=== PATIENT | male | born 1970 ===

== ENCOUNTER 2017-08-24 17:08 | Inpatient (IN) | payer BC ==
[~2017-08-24] VITALS: Ht 172.7 cm; Wt 92.6 kg
[2017-08-25] MEDS ORDERED: MAGNESIUM HYDROXIDE SUSP 30 ML CUP PO PRN (19:30)
[2017-08-25] MEDS ORDERED: CHLORHEXIDINE GLUCONATE 2 % 1 PACK (2 CLOTHS) TOP PRN (19:30)
[2017-08-25] MEDS ORDERED: ONDANSETRON HCL 4 MG/2 ML VIAL IV PUSH PRN (19:30)
[2017-08-25] MEDS ORDERED: BISACODYL 10 MG SUPP RECTAL PRN (19:30)
[2017-08-25] MEDS ORDERED: MISCELLANEOUS NURSING INFORMATION XX SCH (19:30)
[2017-08-25] MEDS ORDERED: SENNOSIDES 8.6 MG TAB PO PRN (19:30)
[2017-08-25] MEDS ORDERED: RESP: ALBUTEROL 2.5 MG/3 ML NEB (PRN) INH (19:30)
--- NOTE | 2017-08-25 19:38 | HHI.HP ---
[facility] Service Critical Care Medicine Primary Care Physician Unknown Admission Diagnosis Diagnosis: (1) COPD (chronic obstructive pulmonary disease) Diagnosis: Secondary (2) TBI (traumatic brain injury) Diagnosis: Principal (3) Alcohol withdrawal delirium Diagnosis: Secondary (4) HTN (hypertension) Diagnosis: Secondary (5) Hepatic steatosis Diagnosis: Secondary (6) Obesity (BMI 30-39.9) Diagnosis: Secondary Travel History International Travel<30 Days: No Contact w/Intl Traveler <30 Da: No Traveled to Known Affected Are: No History of Present Illness Patient was not able to provide history. History was obtained from patient's brother and from review of medical records from outside hospital 46 year-old male with past medical history of alcohol dependence, hypertension, COPD, tobacco abuse, sleep apnea not on home C Pap, prior history of crystal meth abuse who is transferred from [facility] in [facility]. His brother states that on 08/14/17 he began coughing vigorously while intoxicated and friend witnessed him falling forward striking his head. (However OSH records indicate he was found down in the yard by his ex ). There was no reported seizure activity. GCS was reportedly 12 on arrival. He sustained a nondisplaced frontal bone fracture, bilateral frontal hemorrhagic contusions, left frontal subdural hematoma (124 mm). He was admitted to the trauma surgery service at the outside hospital with neurosurgical consultation. He had subsequent follow-up CT scans 08/15 and which were stable with the 3rd scan (08/16) showing resolution of SDH. He was treated for delirium tremens with Librium, thiamine, folic acid. He has been on Seroquel 50 mg by mouth twice a day and precedex drip for impulsivity. He was on Keppra for seizure prophylaxis. Repeat CT brain 08/24 showed reduction of frontal hemorrhages with increase in edema, particularly in left frontal lobe. Bilateral subdural hygromas present (5 mm on right and 4 mm on the left) [place] [facility] [place], as well as because there are family members who are local here who can provide support to him through his recovery and rehabilitation efforts. Brother is at bedside requesting repeat imaging. Review of Systems ROS Limitations: Clinical Condition Past Family Social History Allergies: Coded Allergies: No Known Allergies (Unverified , 08/25/17) Past Medical History Hypertension COPD Alcohol dependence Tobacco abuse Hepatic steatosis Prior history of crystal meth abuse Past Surgical History Brother reports no known past surgical history Reported Medications Prior home medications from outside hospital indicated: Norvasc 10 mg by mouth daily Lisinopril 20 mg by mouth daily ?Erythromycin ophthalmic 3 times a day, ?acetaminophen/codeine, pseudoephedrine/dextromethorphan cough suppressant ?Azithromycin 250 daily Active Ordered Medications Medications he was on at outside hospital included: Nicotine patch Colace 100 mg by mouth twice a day Protonix 40 g IV daily DuoNeb every 6 hours Ativan to mill grams IV every 2 hours as needed Insulin sliding scale Ativan 1 mg by mouth twice a day Haldol 5 mill grams IV every 4 hours as needed Precedex drip Seroquel 50 mg by mouth twice a day TPN with lipids Family History His mother drinks alcohol Heavily. She has COPD and is 72 years old. Father is 84 and reportedly in good health. He reportedly was diagnosed with bladder cancer 12 years ago but reportedly is "cancer free" after alternative therapy Social History He has smoked since he was about 14 years old and was currently smoking 3 packs per day Prior history of crystal meth abuse but reportedly has been clean for that for 2 years Drinks beer and liquor on a daily basis. Brother estimates 8-15 alcoholic beverages per day Lives in [place] Is a salesman for [email or web address] He has been twice He has 2 adult daughters. One is name Ernie and lives in [place]. Another daughter is Lanette and she is in college in [place]. He has a 11-year-old son from his second marriage. His mother lives in [facility] Physical Exam Physical Exam GENERAL: Well-nourished, well-developed patient who is sitting up in ISC bed, restless. SKIN: Warm and dry, well perfused. There is erythema at right antecubital fossa , appears to be prior PIV site. No fluctuance or palpable cord. HEAD: Atraumatic. Normocephalic. EYES: Pupils equal and round, reactive. No scleral icterus. No injection or drainage. ENT: No nasal bleeding or discharge. Mucous membranes pink and moist. NECK: Trachea midline. No JVD. CARDIOVASCULAR: Regular rate and rhythm. No murmurs rubs or gallops. RESPIRATORY: No accessory muscle use. Clear to auscultation. Breath sounds equal bilaterally. GASTROINTESTINAL: Abdomen soft, non-tender, nondistended. Bowel sounds present. Hepatic and splenic margins not palpable. MUSCULOSKELETAL: Extremities without clubbing, cyanosis, or edema. NEUROLOGICAL: Awake and alert. Oriented to self but not to year/place/ president. No obvious cranial nerve deficits. EOM full without nystagmus. Strength 5/5 throughout. Caprini VTE Risk Assessment Caprini VTE Risk Assessment: Mod/High Risk (score >= 2) VTE Pharm Contraindication: Documented Caprini Risk Assessment Model Point Value = 1 Point Value = 2 Point Value = 3 Point Value = 5 Age 41-60 Minor surgery BMI > 25 kg/m2 Swollen legs Varicose veins or History of unexplained or recurrent spontaneous Oral contraceptives or hormone replacement Sepsis (< 1 month) Serious lung disease, including pneumonia (< 1 month) Abnormal pulmonary function Acute myocardial infarction Congestive heart failure (< 1 month) History of inflammatory bowel disease Medical patient at bed rest Age 61-74 Arthroscopic surgery Major open surgery (> 45 min) Laparoscopic surgery (> 45 min) Malignancy Confined to bed (> 72 hours) Immobilizing plaster cast Central venous access Age >= 75 History of VTE Family history of VTE Factor V Leiden Prothrombin [id number] Lupus anticoagulant Anticardiolipin antibodies Elevated serum homocysteine Heparin-induced thrombocytopenia Other congenital or acquired thrombophilia Stroke (< 1 month) Elective arthroplasty Hip, pelvis, or leg fracture Acute spinal cord injury (< 1 month) Prophylaxis Regimen Total Risk Factor Score Risk Level Prophylaxis Regimen 0-1 Low Early ambulation 2 Moderate Order ONE of the following: *Sequential Compression Device (SCD) *Heparin 5000 units SQ BID 3-4 Higher Order ONE of the following medications: *Heparin 5000 units SQ TID *Enoxaparin/Lovenox 40 mg SQ daily (WT < 150 kg, CrCl > 30 mL/min) *Enoxaparin/Lovenox 30 mg SQ daily (WT < 150 kg, CrCl > 10-29 mL/min) *Enoxaparin/Lovenox 30 mg SQ BID (WT < 150 kg, CrCl > 30 mL/min) AND/OR *Sequential Compression Device (SCD) 5 or more Highest Order ONE of the following medications: *Heparin 5000 units SQ TID (Preferred with Epidurals) *Enoxaparin/Lovenox 40 mg SQ daily (WT < 150 kg, CrCl > 30 mL/min) *Enoxaparin/Lovenox 30 mg SQ daily (WT < 150 kg, CrCl > 10-29 mL/min) *Enoxaparin/Lovenox 30 mg SQ BID (WT < 150 kg, CrCl > 30 mL/min) AND *Sequential Compression Device (SCD) Assessment and Plan Problem List: (1) COPD (chronic obstructive pulmonary disease) ICD Code: J44.9 - Chronic obstructive pulmonary disease, unspecified Status: Chronic (2) TBI (traumatic brain injury) ICD Code: S06.9X9A - Unspecified intracranial injury with loss of consciousness of unspecified duration, initial encounter Status: Acute (3) Alcohol withdrawal delirium ICD Code: F10.231 - Alcohol dependence with withdrawal delirium Status: Acute (4) HTN (hypertension) ICD Code: I10 - Essential (primary) hypertension Status: Chronic (5) Obesity (BMI 30-39.9) ICD Code: E66.9 - Obesity, unspecified Status: Chronic (6) Hepatic steatosis ICD Code: K76.0 - Fatty (change of) liver, not elsewhere classified Status: Chronic (7) Thrombocytosis ICD Code: D47.3 - Essential (hemorrhagic) thrombocythemia Status: Acute Assessment and Plan NEURO: TBI Nondisplaced frontal bone fracture Left frontal subdural hematoma Left frontal subarachnoid hemorrhage Punctate frontal lobe hemorrhagic contusions Alcohol dependence Agitated delirium CT Scans were performed at outside hospital 08/14, 08/15, 08/16. CT brain 08/14 - linear nondisplaced frontal bone fracture. Punctate hemorrhagic contusions Inferior frontal lobes. Subdural blood along tentorium and small left frontal subdural hematoma 12 x 4 mm. Bilateral frontal subarachnoid hemorrhage Follow-up CT 08/15 was stable. Follow-up CT 08/16 Stable hemorrhagic contusions and subarachnoid hemorrhage. Subdural blood along the left frontal lobe was no longer apparent. Suspect ongoing impulsivity largely related to frontal lobe involvement, though prior hospital course has been complicated by DTs. Continue Seroquel 50 mg twice a day. Continue Precedex, weaning off as tolerated. Check baseline LFTs, ammonia level. Consider depakote for agitation to facilitate precedex weaning. Will d/c Keppra as he is beyond 7 days. F/u EEG. Thiamine/folic acid/MVI daily. PT/OT/speech therapy for cognitive evaluation RESP: COPD Suspected obstructive sleep apnea Tobacco abuse Was on Bipap at OSH for suspected sleep apnea, will continue Continue nicotine patch IS every hour DuoNeb every 6 hours Albuterol every 2 hours as needed CV: Hypertension Monitor hemodynamics GI: Obesity Hepatic steatosis Gayla RN performed bedside swallowing evaluation and patient swallowed liquids without reported difficulty. He was on pured diet at outside hospital with supplemental nutrition via TPN. I will not continue TPN at this time. Will assess his intake tomorrow. If need be, enteral feeds via dobhoff could be considered. Pureed regular diet. Speech therapy to reevaluate swallow. FEN/RENAL: Check CMP. Traumatic izaguirre dislodgement at outside hospital. Voiding. ID: Monitor for signs and symptoms of infection. HEME: Thrombocytosis, reactive Monitor CBC ENDO: Euglycemic PROPH: SCDs for DVT prophylaxis. Neurosurgeon at outside hospital had recommended against pharmacologic DVT prophylaxis. Will defer to neurosurgery design studio consultant. Famotidine for stress ulcer prophylaxis ACCESS: Peripheral IV Patient's brother updated at bedside and multiple questions answered. Patient is full code Level 3 H and P Felisa Blackmon MD Aug 25, 2017 19:38
[2017-08-25 20:00] VITALS: BP 100/65; PULSE 113; PULSE 128; RESP 20; TEMP 98.3; O2SAT 92
[2017-08-25] MEDS: FAMOTIDINE 20 MG/2 ML VIAL IV PUSH SCH (20:09)
[2017-08-25] MEDS: DEXMEDETOMIDINE INJ 200 MCG in SODIUM CHLORIDE 0.9% INJ 50 ML IV PRN ×2 (20:09→21:52)
[2017-08-25] MEDS: SODIUM CHLORIDE 0.9% FLUSH 10 ML FLUSH IV FLUSH SCH (20:10)
[2017-08-25 20:13] VITALS: PULSE 128
[2017-08-25] MEDS: FAMOTIDINE 20 MG TAB PO SCH (20:14)
[2017-08-25] MEDS: DOCUSATE SODIUM 50 MG/SENNA 8.6 MG TAB PO SCH (20:15)
--- NOTE | 2017-08-25 20:23 | RADRPT ---
EXAM DATE/TIME: 08/25/2017 19:34 [facility] COMPARISON: No previous studies available for comparison. INDICATIONS : Short of breath MEDICAL HISTORY : Non-responsive SURGICAL HISTORY : Non-responsive ENCOUNTER: Initial ACUITY: 1 day PAIN SCORE: Non-responsive. LOCATION: chest FINDINGS: A single view of the chest demonstrates basilar airspace disease, right greater the left. No effusion . No pneumothorax. CONCLUSION: 1. Basilar airspace disease, right greater the left. Differential diagnosis includes pneumonia and at electasis/aspiration. Virgilio Wilhelm MD on August 25, 2017 at 20:06 Board Certified Radiologist. This report was verified electronically.
[2017-08-25] MEDS: QUEtiapine FUMARATE 25 MG TAB PO SCH (21:00)
[2017-08-25] MEDS: RESP: ALBUTEROL 2.5 MG/IPRATROPIUM 0.5 MG NEB (SCH) INH (21:39)
[2017-08-25 21:41] VITALS: O2SAT 94
[2017-08-25 21:47] LABS: AUTOMATED NEUTROPHIL # 10.1 TH/MM3 (1.8-7.7); BASOPHIL # 0.1 TH/MM3 (0-0.2); BASOPHIL % 0.4 % (0.0-2.0); EOSINOPHIL # 0.2 TH/MM3 (0-0.4); EOSINOPHIL % 1.3 % (0.0-4.0); HEMATOCRIT 42.7 % (39.0-51.0); HEMOGLOBIN 14.7 GM/DL (13.0-17.0); LYMPH % 18.2 % (9.0-44.0); LYMPHOCYTE # 2.6 TH/MM3 (1.0-4.8); MEAN CORPUSCULAR HEMOGLOBIN 31.1 PG (27.0-34.0); MEAN CORPUSCULAR HGB CONC 34.6 % (32.0-36.0); MEAN PLATELET VOLUME 8.4 FL (7.0-11.0); MONO % 9.1 % (0.0-8.0); MONOCYTE # 1.3 TH/MM3 (0-0.9); PLATELET COUNT 481 TH/MM3 (150-450); RED BLOOD COUNT 4.74 MIL/MM3 (4.50-5.90); RED CELL DISTRIBUTION WIDTH 14.2 % (11.6-17.2); WHITE BLOOD COUNT 14.3 TH/MM3 (4.0-11.0)
[2017-08-25 22:00] VITALS: PULSE 101
[2017-08-25 22:26] LABS: ALBUMIN 3.5 GM/DL (3.4-5.0); AST (GOT) 25 U/L (15-37); BICARBONATE 24.2 MEQ/L (21.0-32.0); BLOOD UREA NITROGEN 13 MG/DL (7-18); CALCIUM 9.1 MG/DL (8.5-10.1); CHLORIDE 101 MEQ/L (98-107); CREATININE 1.01 MG/DL (0.60-1.30); GLOMERULAR FILTRATION RATE 79 ML/MIN (>89); GLUCOSE,RANDOM 80 MG/DL (74-106); SODIUM (NA) 136 MEQ/L (136-145)
[2017-08-25 22:27] LABS: ALT (GPT) 46 U/L (12-78); PHOSPHORUS 3.8 MG/DL (2.5-4.9)
[2017-08-25 22:29] LABS: ALKALINE PHOSPHATASE 83 U/L (45-117); TOTAL BILIRUBIN ADULT 0.5 MG/DL (0.2-1.0); TOTAL PROTEIN 7.4 GM/DL (6.4-8.2)
[2017-08-25] MEDS ORDERED: DEXMEDETOMIDINE INJ 1,000 MCG in SODIUM CHLOR 0.9% 250 ML INJ 240 ML IV PRN (23:59)
[2017-08-26] VITALS (15 sets, daily range): BP systolic 95–167; BP diastolic 55–107; PULSE 62–128; RESP 13–24; TEMP 97.9–98.7; O2SAT 95–100
[2017-08-26] MEDS: RESP: ALBUTEROL 2.5 MG/IPRATROPIUM 0.5 MG NEB (SCH) INH ×2 (03:06→08:20)
[2017-08-26] MEDS: CHLORHEXIDINE GLUCONATE 2 % 1 PACK (2 CLOTHS) TOP SCH (04:00)
[2017-08-26 06:22] LABS: AUTOMATED NEUTROPHIL # 5.9 TH/MM3 (1.8-7.7); BASOPHIL % 0.4 % (0.0-2.0); EOSINOPHIL # 0.3 TH/MM3 (0-0.4); EOSINOPHIL % 2.5 % (0.0-4.0); HEMATOCRIT 44.4 % (39.0-51.0); HEMOGLOBIN 15.3 GM/DL (13.0-17.0); LYMPH % 27.4 % (9.0-44.0); LYMPHOCYTE # 2.8 TH/MM3 (1.0-4.8); MEAN CELL VOLUME 90.9 FL (80.0-100.0); MEAN CORPUSCULAR HEMOGLOBIN 31.3 PG (27.0-34.0); MEAN CORPUSCULAR HGB CONC 34.4 % (32.0-36.0); MEAN PLATELET VOLUME 8.2 FL (7.0-11.0); MONO % 10.9 % (0.0-8.0); MONOCYTE # 1.1 TH/MM3 (0-0.9); NEUT % 58.8 % (16.0-70.0); PLATELET COUNT 460 TH/MM3 (150-450); RED BLOOD COUNT 4.88 MIL/MM3 (4.50-5.90); RED CELL DISTRIBUTION WIDTH 14.1 % (11.6-17.2); WHITE BLOOD COUNT 10.1 TH/MM3 (4.0-11.0)
[2017-08-26 06:53] LABS: BICARBONATE 27.3 MEQ/L (21.0-32.0); CALCIUM 9.6 MG/DL (8.5-10.1); CREATININE 0.99 MG/DL (0.60-1.30)
[2017-08-26] MEDS: RESP: ALBUTEROL 2.5 MG/IPRATROPIUM 0.5 MG NEB (SCH) NEB ×3 (08:21→21:39)
[2017-08-26] MEDS ORDERED: RESP: ALBUTEROL 2.5 MG/3 ML NEB (PRN) NEB (08:45)
[2017-08-26] MEDS: FAMOTIDINE 20 MG/2 ML VIAL IV PUSH SCH (09:00)
[2017-08-26] MEDS: FAMOTIDINE 20 MG TAB PO SCH ×2 (09:10→20:27)
[2017-08-26] MEDS: SODIUM CHLORIDE 0.9% FLUSH 10 ML FLUSH IV FLUSH SCH ×2 (09:11→19:46)
[2017-08-26] MEDS: QUEtiapine FUMARATE 25 MG TAB PO SCH ×2 (09:11→17:24)
[2017-08-26] MEDS: DOCUSATE SODIUM 50 MG/SENNA 8.6 MG TAB PO SCH ×2 (09:11→20:27)
--- NOTE | 2017-08-26 09:17 | RADRPT ---
EXAM DATE/TIME: 08/26/2017 08:05 [facility] COMPARISON: No previous studies available for comparison. INDICATIONS : Altered mental status RADIATION DOSE: 66.34 CTDIvol (mGy) MEDICAL HISTORY : Hypertension. Chronic obstructive pulmonary disease. SURGICAL HISTORY : Non-responsive. ENCOUNTER: Initial ACUITY: 1 day PAIN SCALE: Non-responsive LOCATION: Bilateral cranial TECHNIQUE: Multiple contiguous axial images were obtained of the head. Using automated exposure control and adjustment of the mA and/or kV according to patient size, radiation dose was kept as low as reasonably achievable to obtain optimal diagnostic quality images. DICOM format image data is av ailable electronically for review and comparison. FINDINGS: CEREBRUM: There is bifrontal encephalomalacia changes. Ventricular size is appropriate Patient has skull fract ure extending across the right calvarium. There is no parenchymal hemorrhage. Small amount of subdural blood is seen on the left measuring 9 mm, moving from subacute to hygromas s tage. Posterior fossa is unremarkable Measures sinuses are clear. CONCLUSION: Skull fracture on the right focal bone within the encephalomalacic changes both orbitofrontal regions . Small 9 mm right subdural hygroma I have no prior studies for comparison. Due to the exists? Flaco Razo MD FACR on August 26, 2017 at 9:12 Board Certified Radiologist. This report was verified electronically.
[2017-08-26] MEDS: DIVALPROEX DR 500 MG TABEC PO SCH ×2 (09:52→20:28)
[2017-08-26] MEDS ORDERED: LORazepam 2 MG/ML VIAL IV PUSH PRN (11:30)
--- NOTE | 2017-08-26 11:41 | HHI.CCPN ---
Subjective Remarks/Hospital Course Patient was not able to provide history. History was obtained from patient's brother and from review of medical records from outside hospital. 46 year-old male with past medical history of alcohol dependence, hypertension, COPD, tobacco abuse, sleep apnea not on home C Pap, prior history of crystal meth abuse who is transferred from [facility] in [facility]. His brother states that on 08/14/17 he began coughing vigorously while intoxicated and friend witnessed him falling forward striking his head. (However OSH records indicate he was found down in the yard by his ex ). There was no reported seizure activity. GCS was reportedly 12 on arrival. He sustained a nondisplaced frontal bone fracture, bilateral frontal hemorrhagic contusions, left frontal subdural hematoma (124 mm). He was admitted to the trauma surgery service at the outside hospital with neurosurgical consultation. He had subsequent follow-up CT scans 08/15 and which were stable with the 3rd scan (08/16) showing resolution of SDH. He was treated for delirium tremens with Librium, thiamine, folic acid. He has been on Seroquel 50 mg by mouth twice a day and Precedex drip for impulsivity. He was on Keppra for seizure prophylaxis. Repeat CT brain 08/24 showed reduction of frontal hemorrhages with increase in edema, particularly in left frontal lobe. Bilateral subdural hygromas present (5 mm on right and 4 mm on the left) Family has requested transfer to [facility] [place] for second opinion, as well as because there are family members who are local here who can provide support to him through his recovery and rehabilitation efforts. Brother is at bedside requesting repeat imaging. SUBJ 08/26: Currently on Precedex. Patient is able to follow commands but speech is not clear. Intermittently agitated requiring Precedex and restraints. Will wean Precedex. Increase Seroquel to 50 mg every 8 hours, use as needed Haldol and Ativan. Start Clonidine 0.1 gm q8. Depakote started by Dr. Blackmon Objective Vital Signs Date Time Temp Pulse Resp B/P (MAP) Pulse Ox O2 Delivery O2 Flow Rate FiO2 08/26/17 08:21 96 Nasal Cannula 2.00 08/26/17 06:00 62 08/26/17 04:00 98.4 14 111/70 (84) 08/25/17 21:41 21 Intake and Output 08/26/17 08/26/17 08/26/17 07:59 15:59 23:59 Intake Total 347 ml 132 ml Balance 347 ml 132 ml Result Diagram: 08/26/17 0544 08/26/17 0544 Other Results Laboratory Tests Test 08/25/17 20:45 Blood Gas Puncture Site RT RADIAL Blood Gas Patient Temperature 98.6 Blood Gas HCO3 25 mmol/L (22-26) Blood Gas Base Excess 1.5 mmol/L (-2-2) Blood Gas Oxygen Saturation 90 % (90-100) Arterial Blood pH 7.47 (7.380-7.420) Arterial Blood Partial Pressure CO2 35 mmHg (38-42) Arterial Blood Partial Pressure O2 63 mmHg (61-120) Arterial Blood Oxygen Content 18.9 Vol % (12.0-20.0) Arterial Blood Carboxyhemoglobin 1.1 % (0-4) Arterial Blood Methemoglobin 0.9 % (0-2) Blood Gas Hemoglobin 14.9 G/DL (12.0-16.0) Oxygen Delivery Device ROOM AIR Blood Gas Inspired Oxygen 21 % Objective Remarks GENERAL: Well-nourished, well-developed patient who is lying in ISC bed, restless. SKIN: Warm and dry, well perfused. There is erythema at right antecubital fossa , appears to be prior PIV site. No fluctuance or palpable cord. HEAD: Atraumatic. Normocephalic. EYES: Pupils equal and round, reactive. No scleral icterus. No injection or drainage. ENT: No nasal bleeding or discharge. Mucous membranes pink and moist. NECK: Trachea midline. No JVD. CARDIOVASCULAR: Regular rate and rhythm. No murmurs rubs or gallops. RESPIRATORY: No accessory muscle use. Clear to auscultation. Breath sounds equal bilaterally. GASTROINTESTINAL: Abdomen soft, non-tender, nondistended. Bowel sounds present. Hepatic and splenic margins not palpable. MUSCULOSKELETAL: Extremities without clubbing, cyanosis, or edema. NEUROLOGICAL: Awake and alert. Oriented to self. No obvious cranial nerve deficits. EOM full. Strength 5/5 . A/P Assessment and Plan NEURO: TBI Nondisplaced frontal bone fracture Left frontal subdural hematoma Left frontal subarachnoid hemorrhage Punctate frontal lobe hemorrhagic contusions Agitated delirium Alcohol dependence CT 08/26 Skull fracture on the right, encephalomalacia both orbitofrontal regions. Small 9 mm right subdural hygroma. Dr. Lobo consulted CT Scans were performed at outside hospital 08/14, 08/15, 08/16. CT brain 08/14 - linear nondisplaced frontal bone fracture. Punctate hemorrhagic contusions Inferior frontal lobes. Subdural blood along tentorium and small left frontal subdural hematoma 12 x 4 mm. Bilateral frontal subarachnoid hemorrhage Follow-up CT 08/15 was stable. Follow-up CT 08/16 Stable hemorrhagic contusions and subarachnoid hemorrhage. Subdural blood along the left frontal lobe was no longer apparent. Suspect ongoing impulsivity largely related to frontal lobe involvement, though prior hospital course has been complicated by DTs. Continue Seroquel 50 mg twice a day, increase to every 8 hours. Continue Precedex, weaning off. Start clonidine 0.1 mg every 8 hours. Use Ativan as needed. Continue Depakote Thiamine/folic acid/MVI daily. PT/OT/speech therapy for cognitive, swallow evaluation RESP: COPD Suspected obstructive sleep apnea Tobacco abuse Was on BiPAP at OSH for suspected sleep apnea, will continue Continue nicotine patch IS every hour DuoNeb every 6 hours Albuterol every 2 hours as needed CV: Hypertension Monitor hemodynamics GI: Obesity Hepatic steatosis Gayla RN performed bedside swallowing evaluation and patient swallowed liquids without reported difficulty. He was on pured diet at outside hospital with supplemental nutrition via TPN. No need to continue TPN at this time. Cleared by speech, start regular diet FEN/RENAL: Voiding. Check CMP. ID: Monitor for signs and symptoms of infection. HEME: Thrombocytosis, reactive Monitor CBC ENDO: Euglycemic PROPH: SCDs for DVT prophylaxis. Neurosurgeon at outside hospital had recommended against pharmacologic DVT prophylaxis. Will defer to neurosurgery showroom sales consultant. Famotidine for stress ulcer prophylaxis PT OOB. Will start Lovenox if cleared by Dr. Lobo ACCESS: Peripheral IV Patient's brother updated at bedside and multiple questions answered. Patient is full code Level 3 Consult [facility] to assume care in am Adeline Wadsworth MD Aug 26, 2017 11:41
[2017-08-26] MEDS: HALOPERIDOL LACTATE 5 MG/ML AMP IV PRN ×2 (12:00→19:46)
--- NOTE | 2017-08-26 13:21 | PD.CONS ---
(Dell Lobo MD) HPI Consult Requested By Primary Care Physician Unknown (Dell Lobo MD) Service Neurosurgery Consult Requested By Critical Care History of Present Illness Mr. Flores is a 46 year old male who presents as a transfer from [place], [place]. Patient cannot provide history this history obtained from patient's medical record. On 08/14/17 he had a witnessed fall while intoxicated, forward striking his head. There was no reported seizure activity. He sustained a nondisplaced frontal bone fracture, bilateral frontal hemorrhagic contusions, left frontal subdural hematoma (124 mm). He was admitted to the trauma surgery service at the outside hospital with Neurosurgical evaluation and was managed nonoperatively. He had underwent subsequent follow-up CT scans 08/15 and 08/16 which were stable and showing resolution of subdural hematoma. He was also being treated for delirium tremens with Librium, thiamine, folic acid. He has been on Seroquel 50 mg by mouth twice a day and Precedex drip for impulsivity. He was on Keppra for seizure prophylaxis. Another repeat CT brain 08/24 showed reduction of frontal hemorrhages with increase in edema, particularly in left frontal lobe. Bilateral subdural hygromas present and family has requested transfer for second opinion, as well as family members being local here in [facility]. A CT Brain has been completed here at [place]. He is currently undergoing EEG study. (Patito Benavides) Review of Systems ROS Limitations: Clinical Condition (Patito Benavides) Past Family Social History Allergies: Coded Allergies: No Known Allergies (Unverified , 08/25/17) Past Medical History Per EMR: Hypertension COPD Etoh dependence Hepatic steatosis History of crystal meth abuse Past Surgical History Per EMR no known past surgical history Reported Medications Per EMR Norvasc 10 mg by mouth daily Lisinopril 20 mg by mouth daily ?Erythromycin ophthalmic 3 times a day, ?acetaminophen/codeine, pseudoephedrine/dextromethorphan cough suppressant ?Azithromycin 250 daily Active Ordered Medications Medications he was on at outside hospital included: Nicotine patch Colace 100 mg by mouth twice a day Protonix 40 g IV daily DuoNeb every 6 hours Ativan to mill grams IV every 2 hours as needed Insulin sliding scale Ativan 1 mg by mouth twice a day Haldol 5 mill grams IV every 4 hours as needed Precedex drip Seroquel 50 mg by mouth twice a day TPN with lipids Active Ordered Medications Current Medications Medications (Trade) Dose Ordered Sig/Alfa Route PRN Reason Start Time Stop Time Status Last Admin Dose Admin Sodium Chloride (NS Flush) 2 ml UNSCH PRN IV FLUSH FLUSH AFTER USING IV ACCESS 08/25/17 19:30 Sodium Chloride (NS Flush) 2 ml BID IV FLUSH 08/25/17 21:00 08/26/17 09:11 Acetaminophen (Tylenol) 650 mg Q6H PRN PO PAIN 1-3 OR FEVER >101 08/25/17 19:30 Famotidine (Pepcid) 20 mg Q12HR PO 08/25/17 21:00 08/26/17 09:10 Ondansetron HCl (Zofran Inj) 4 mg Q6H PRN IV PUSH NAUSEA OR VOMITING 08/25/17 19:30 Miscellaneous Information 1 Q361D XX 08/25/17 19:30 08/25/17 19:30 Chlorhexidine Gluconate (Chlorhexidine 2% Cloth) 3 pack Taper DAILY@04 TOP 08/26/17 04:00 08/22/18 03:59 08/26/17 04:00 Chlorhexidine Gluconate (Chlorhexidine 2% Cloth) 3 pack UNSCH PRN TOP HYGIENIC CARE 08/25/17 19:30 Senna/Docusate Sodium (Elena-Colace) 1 tab BID PO 08/25/17 21:00 08/26/17 09:11 Magnesium Hydroxide (Milk Of Magnesia Liq) 30 ml Q12H PRN PO Mild constipation 08/25/17 19:30 Sennosides (Senokot) 17.2 mg Q12H PRN PO Moderate constipation 08/25/17 19:30 Bisacodyl (Dulcolax Supp) 10 mg DAILY PRN RECTAL SEVERE CONSITIPATION 08/25/17 19:30 Lactulose (Lactulose Liq) 30 ml DAILY PRN PO SEVERE CONSITIPATION 08/25/17 19:30 Divalproex Sodium (Depakote Dr) 500 mg BID PO 08/26/17 09:00 08/26/17 09:52 Albuterol/ Ipratropium (Duoneb Neb) 1 ampule Q6HR NEB NEB 08/26/17 10:00 Albuterol Sulfate (Albuterol Neb) 2.5 mg Q2HR NEB PRN NEB WHEEZING 08/26/17 08:45 Quetiapine Fumarate (SEROquel) 50 mg Q8H PO 08/26/17 17:00 Haloperidol Lactate (Haldol Inj) 4 mg Q4H PRN IV agitation 08/26/17 11:30 08/26/17 12:00 Lorazepam (Ativan Inj) 1 mg Q4H PRN IV PUSH agitation 08/26/17 11:30 Clonidine (Catapres) 0.1 mg Q8HR PO 08/26/17 14:00 Enoxaparin Sodium (Lovenox Inj) 40 mg Q24H SQ 08/26/17 12:00 Family History Mother etoh abuse, COPD Father: bladder cancer Social History senior care tobacco use since 14 y/o 3 ppd Etoh abuse: drinks beer and liquor daily Prior illicit drug use - crystal meth (Patito Benavides) Physical Exam Vital Signs Vital Signs Date Time Temp Pulse Resp B/P (MAP) Pulse Ox O2 Delivery O2 Flow Rate FiO2 08/26/17 10:00 69 08/26/17 08:21 96 Nasal Cannula 2.00 08/26/17 08:00 97.9 66 14 121/77 (92) 100 08/26/17 08:00 66 08/26/17 07:00 100 Nasal Cannula 2.00 08/26/17 06:00 62 08/26/17 05:13 100 Nasal Cannula 1.50 08/26/17 04:00 98.4 69 14 111/70 (84) 100 08/26/17 04:00 69 08/26/17 02:00 76 08/26/17 00:00 98.7 92 20 95/55 (68) 97 08/26/17 00:00 92 08/25/17 22:00 101 08/25/17 22:00 97 Nasal Cannula 08/25/17 21:41 94 21 08/25/17 20:13 128 08/25/17 20:00 98.3 113 20 100/65 (77) 92 08/25/17 20:00 96 Room Air 08/25/17 20:00 128 Physical Exam Mr Flores is confortablke, opens eyes to voice. he is alert, confused, oriented to self. Cranial nerve examination demonstrates the pupils to be equal, round, and reactive to light. Extra-ocular movements are intact with normal convergence. Facial motor function appears normal and symmetrical. Face sensation, hearing, visual mcknight, and olfaction can not be assessed properly due to the patients condition. The patient has an intact corneal reflex and a gag reflex. Sternocleidomastoid and trapezius have normal and symmetrical strength. Other cranial nerves are intact. Neck is soft and supple. Cervical spine has a normal range of motion of the cervical spine without pain. There is no tenderness to palpation to the spinous processes or paraspinal muscles. Muscle testing reveals normal bulk and tone overall without rigidity, spasticity , fasciculations, or atrophy. Muscle strength is 5/5 in all muscle groups of both upper and lower extremities. Deep tendon reflexes are 1+ and symmetrical in the biceps, triceps, and brachioradialis, bilaterally, in the upper extremities. In the lower extremities , the patellar and Achilles are 1+, bilaterally. There is a bilateral plantar flexion response. Hoffmanns sign is negative. There is no clonus or other abnormal reflexes noted. Cerebellar examination is limited due to the patient condition, but no obvious deficits are noted. Laboratory Laboratory Tests Test 08/25/17 20:00 08/25/17 20:45 08/25/17 21:05 08/26/17 05:44 Nasal Screen MRSA (PCR) MRSA NOT DETECTED Blood Gas Puncture Site RT RADIAL Blood Gas Patient Temperature 98.6 Blood Gas HCO3 25 Blood Gas Base Excess 1.5 Blood Gas Oxygen Saturation 90 Arterial Blood pH 7.47 Arterial Blood Partial Pressure CO2 35 Arterial Blood Partial Pressure O2 63 Arterial Blood Oxygen Content 18.9 Arterial Blood Carboxyhemoglobin 1.1 Arterial Blood Methemoglobin 0.9 Blood Gas Hemoglobin 14.9 Oxygen Delivery Device ROOM AIR Blood Gas Inspired Oxygen 21 White Blood Count 14.3 10.1 Red Blood Count 4.74 4.88 Hemoglobin 14.7 15.3 Hematocrit 42.7 44.4 Mean Corpuscular Volume 90.0 90.9 Mean Corpuscular Hemoglobin 31.1 31.3 Mean Corpuscular Hemoglobin Concent 34.6 34.4 Red Cell Distribution Width 14.2 14.1 Platelet Count 481 460 Mean Platelet Volume 8.4 8.2 Neutrophils (%) (Auto) 71.0 58.8 Lymphocytes (%) (Auto) 18.2 27.4 Monocytes (%) (Auto) 9.1 10.9 Eosinophils (%) (Auto) 1.3 2.5 Basophils (%) (Auto) 0.4 0.4 Neutrophils # (Auto) 10.1 5.9 Lymphocytes # (Auto) 2.6 2.8 Monocytes # (Auto) 1.3 1.1 Eosinophils # (Auto) 0.2 0.3 Basophils # (Auto) 0.1 0.0 CBC Comment DIFF FINAL DIFF FINAL Differential Comment Blood Urea Nitrogen 13 14 Creatinine 1.01 0.99 Random Glucose 80 94 Total Protein 7.4 Albumin 3.5 Calcium Level 9.1 9.6 Phosphorus Level 3.8 Magnesium Level 2.0 Alkaline Phosphatase 83 Aspartate Amino Transf (AST/SGOT) 25 Alanine Aminotransferase (ALT/SGPT) 46 Total Bilirubin 0.5 Sodium Level 136 135 Potassium Level 3.8 4.0 Chloride Level 101 102 Carbon Dioxide Level 24.2 27.3 Anion Gap 11 6 Estimat Glomerular Filtration Rate 79 81 Ammonia 13 (Dell Lobo MD) Physical Exam (Patito Benavides) Result Diagram: 08/26/17 0544 08/26/17 0544 Imaging Last [address] 08/26/17 0000 Signed Impressions: Service Date/Time: Saturday, August 26, 2017 08:05 - CONCLUSION: Skull fracture on the right focal bone within the encephalomalacic changes both orbitofrontal regions. Small 9 mm right subdural hygroma I have no prior studies for comparison. Due to the exists? Flaco Razo MD FACR Chest X-Ray 08/25/17 0000 Signed Impressions: Service Date/Time: Friday, August 25, 2017 19:34 - CONCLUSION: 1. Basilar airspace disease, right greater the left. Differential diagnosis includes pneumonia and atelectasis/aspiration. Virgilio Wilhelm MD (Dell Lobo MD) Imaging Last Impressions Head CT 08/26/17 0000 Signed Impressions: Service Date/Time: Saturday, August 26, 2017 08:05 - CONCLUSION: Skull fracture on the right focal bone within the encephalomalacic changes both orbitofrontal regions. Small 9 mm right subdural hygroma I have no prior studies for comparison. Due to the exists? Flaco Razo MD FACR Chest X-Ray 08/25/17 0000 Signed Impressions: Service Date/Time: Friday, August 25, 2017 19:34 - CONCLUSION: 1. Basilar airspace disease, right greater the left. Differential diagnosis includes pneumonia and atelectasis/aspiration. Virgilio Wilhelm MD (Patito Benavides) Attending Statement I reviewed his clinical and radiological studies Head CT 08/26/17 0000 Signed Impressions: Service Date/Time: Saturday, August 26, 2017 08:05 - CONCLUSION: Skull fracture on the right focal bone within the encephalomalacic changes both orbitofrontal regions. Small 9 mm right subdural hygroma I have no prior studies for comparison. Due to the exists? Flaco Razo MD FACR Chest X-Ray 08/25/17 0000 Signed Impressions: Service Date/Time: Friday, August 25, 2017 19:34 - CONCLUSION: 1. Basilar airspace disease, right greater the left. Differential diagnosis includes pneumonia and atelectasis/aspiration. Virgilio Wilhelm MD Continue neuro checks in a serial fashion. Continue non surgical management of traumatic head injury An EEG has been ordered Pulmonary. Continue aggressive pulmonary toilette, nasotracheal suction, and breathing treatments with nebulizers. Daily PT and OT Nutrition. Tolerating Oral diet Renal. Continue to monitor closely urine output, BUN and creatinine Endocrine. Continue to Monitor serial Acu checks and SSI as needed in detail ID continue to monitor for signs of infection Continue Protonix for stress ulcer prophylaxis Caprini VTE Risk Assessment Caprini VTE Risk Assessment Caprini Risk Assessment Model Point Value = 1 Point Value = 2 Point Value = 3 Point Value = 5 Age 41-60 Minor surgery BMI > 25 kg/m2 Swollen legs Varicose veins or History of unexplained or recurrent spontaneous Oral contraceptives or hormone replacement Sepsis (< 1 month) Serious lung disease, including pneumonia (< 1 month) Abnormal pulmonary function Acute myocardial infarction Congestive heart failure (< 1 month) History of inflammatory bowel disease Medical patient at bed rest Age 61-74 Arthroscopic surgery Major open surgery (> 45 min) Laparoscopic surgery (> 45 min) Malignancy Confined to bed (> 72 hours) Immobilizing plaster cast Central venous access Age >= 75 History of VTE Family history of VTE Factor V Leiden Prothrombin [id number] Lupus anticoagulant Anticardiolipin antibodies Elevated serum homocysteine Heparin-induced thrombocytopenia Other congenital or acquired thrombophilia Stroke (< 1 month) Elective arthroplasty Hip, pelvis, or leg fracture Acute spinal cord injury (< 1 month) Prophylaxis Regimen Total Risk Factor Score Risk Level Prophylaxis Regimen 0-1 Low Early ambulation 2 Moderate Order ONE of the following: *Sequential Compression Device (SCD) *Heparin 5000 units SQ BID 3-4 Higher Order ONE of the following medications: *Heparin 5000 units SQ TID *Enoxaparin/Lovenox 40 mg SQ daily (WT < 150 kg, CrCl > 30 mL/min) *Enoxaparin/Lovenox 30 mg SQ daily (WT < 150 kg, CrCl > 10-29 mL/min) *Enoxaparin/Lovenox 30 mg SQ BID (WT < 150 kg, CrCl > 30 mL/min) AND/OR *Sequential Compression Device (SCD) 5 or more Highest Order ONE of the following medications: *Heparin 5000 units SQ TID (Preferred with Epidurals) *Enoxaparin/Lovenox 40 mg SQ daily (WT < 150 kg, CrCl > 30 mL/min) *Enoxaparin/Lovenox 30 mg SQ daily (WT < 150 kg, CrCl > 10-29 mL/min) *Enoxaparin/Lovenox 30 mg SQ BID (WT < 150 kg, CrCl > 30 mL/min) AND *Sequential Compression Device (SCD) Continue Cosmo hose and SCD's for DVT prophylaxis The exam, history, and the medical decision-making described in the above note were completed with the assistance of the mid-level provider. I reviewed and agree with the findings presented. I attest that I had a [id number] encounter with the patient on the same day, and personally performed and documented my assessment and findings in the medical record. (Dell Lobo MD) Dell Lobo MD Aug 26, 2017 13:20 Patito Benavides Aug 26, 2017 13:32
--- NOTE | 2017-08-26 13:32 | HHI.NSPN ---
Note Status Status: Progress Note Interval History Interval History Labs, Micro, & Vital Signs Results Date Time Temp Pulse Resp B/P (MAP) Pulse Ox O2 Delivery O2 Flow Rate FiO2 08/26/17 10:00 69 08/26/17 08:21 96 Nasal Cannula 2.00 08/26/17 08:00 97.9 66 14 121/77 (92) 100 08/26/17 08:00 66 08/26/17 07:00 100 Nasal Cannula 2.00 08/26/17 06:00 62 08/26/17 05:13 100 Nasal Cannula 1.50 08/26/17 04:00 98.4 69 14 111/70 (84) 100 08/26/17 04:00 69 08/26/17 02:00 76 08/26/17 00:00 98.7 92 20 95/55 (68) 97 08/26/17 00:00 92 08/25/17 22:00 101 08/25/17 22:00 97 Nasal Cannula 08/25/17 21:41 94 21 08/25/17 20:13 128 08/25/17 20:00 98.3 113 20 100/65 (77) 92 08/25/17 20:00 96 Room Air 08/25/17 20:00 128 08/27/17 07:00 Intake Total 132 ml Balance 132 ml Constitutional Vital Signs Date Time Temp Pulse Resp B/P (MAP) Pulse Ox O2 Delivery O2 Flow Rate FiO2 08/26/17 10:00 69 08/26/17 08:21 96 Nasal Cannula 2.00 08/26/17 08:00 97.9 66 14 121/77 (92) 100 08/26/17 08:00 66 08/26/17 07:00 100 Nasal Cannula 2.00 08/26/17 06:00 62 08/26/17 05:13 100 Nasal Cannula 1.50 08/26/17 04:00 98.4 69 14 111/70 (84) 100 08/26/17 04:00 69 08/26/17 02:00 76 08/26/17 00:00 98.7 92 20 95/55 (68) 97 3/5/18 00:00 92 08/25/17 22:00 101 08/25/17 22:00 97 Nasal Cannula 08/25/17 21:41 94 21 08/25/17 20:13 128 08/25/17 20:00 98.3 113 20 100/65 (77) 92 08/25/17 20:00 96 Room Air 08/25/17 20:00 128 08/27/17 07:00 Intake Total 132 ml Balance 132 ml Patito Benavides Aug 26, 2017 13:32
--- NOTE | 2017-08-26 13:38 | EKG ---
Date Performed: 08/25/2017 Time Performed: 22:22:33 PTAGE: 46 years EKG: SINUS TACHYCARDIA ABNORMAL RHYTHM ECG NO PREVIOUS TRACING DOCTOR: Gene Tipton Interpretating Date/Time 08/26/2017 13:35:27
[2017-08-26] MEDS: cloNIDine HCL 0.1 MG TAB PO SCH ×2 (14:43→21:08)
[2017-08-26] MEDS: ENOXAPARIN SODIUM 40 MG/0.4 ML SYRINGE SQ SCH (14:44)
[2017-08-26] MEDS: chlordiazePOXIDE 25 MG CAP PO SCH ×2 (16:32→20:28)
[2017-08-26] MEDS: LORazepam 2 MG/ML VIAL IV PUSH PRN ×2 (17:25→22:19)
[2017-08-26] MEDS ORDERED: niCARdipine INJ 25 MG in SODIUM CHLOR 0.9% 250 ML INJ 240 ML IV PRN (20:00)
[2017-08-26] MEDS: LABETALOL HCL 100 MG/20 ML VIAL IV PUSH PRN ×2 (21:03→22:19)
[2017-08-27] VITALS (16 sets, daily range): BP systolic 124–163; BP diastolic 79–96; PULSE 82–120; RESP 12–29; TEMP 98–98.6; O2SAT 92–100
[2017-08-27] MEDS: QUEtiapine FUMARATE 25 MG TAB PO SCH ×3 (00:28→17:26)
[2017-08-27] MEDS: RESP: ALBUTEROL 2.5 MG/IPRATROPIUM 0.5 MG NEB (SCH) NEB ×4 (03:25→22:00)
[2017-08-27] MEDS: CHLORHEXIDINE GLUCONATE 2 % 1 PACK (2 CLOTHS) TOP SCH (04:00)
[2017-08-27] MEDS: HALOPERIDOL LACTATE 5 MG/ML AMP IV PRN ×3 (05:52→21:47)
[2017-08-27] MEDS: cloNIDine HCL 0.1 MG TAB PO SCH ×3 (05:52→21:15)
[2017-08-27] MEDS: SODIUM CHLORIDE 0.9% FLUSH 10 ML FLUSH IV FLUSH PRN ×2 (05:59→21:47)
--- NOTE | 2017-08-27 07:16 | MG ---
cc: Panfilo Lundberg MD EEG NUMBER: [id number] Hyperventilation not performed. A 46-year-old man with COPD, sleep apnea, alcohol use. MEDICATIONS: Depakote. Seroquel. He was coughing vigorously while intoxicated, then fell forward and hit his head. EEG FINDINGS: Diffuse beta and alpha rhythms are seen. The recording overall is synchronous and symmetric. A 9 Hz, 60 microvolt posterior rhythm is at times seen which is synchronous and symmetric. No hemisphere asymmetries are noted. No epileptiform or seizure activity is seen. Photic stimulation is performed without significant posterior driving. IMPRESSION: Normal awake EEG. No evidence for a focal or diffuse abnormality. MD OK Mcgowan/FERMIN , 09:26 PM , 07:15 AM
[2017-08-27] MEDS: chlordiazePOXIDE 25 MG CAP PO SCH ×2 (09:00→20:19)
[2017-08-27] MEDS: DIVALPROEX DR 500 MG TABEC PO SCH ×2 (09:01→20:19)
[2017-08-27] MEDS: FAMOTIDINE 20 MG TAB PO SCH ×2 (09:01→20:20)
[2017-08-27] MEDS: DOCUSATE SODIUM 50 MG/SENNA 8.6 MG TAB PO SCH ×2 (09:01→20:20)
[2017-08-27] MEDS: SODIUM CHLORIDE 0.9% FLUSH 10 ML FLUSH IV FLUSH SCH ×2 (09:02→20:17)
--- NOTE | 2017-08-27 10:33 | HHI.PR ---
Subjective Remarks in no acute distress. lethargic but easily arousable. noted that was on restraints. Objective Vitals Vital Signs Date Time Temp Pulse Resp B/P (MAP) Pulse Ox O2 Delivery O2 Flow Rate FiO2 08/27/17 09:23 94 Nasal Cannula 3.00 08/27/17 08:14 97 Nasal Cannula 3.00 08/27/17 06:00 102 08/27/17 04:00 110 08/27/17 04:00 98.4 110 26 130/91 (104) 94 08/27/17 02:00 114 08/27/17 01:05 110 123/80 08/27/17 00:30 107 134/85 08/27/17 00:09 109 130/79 08/27/17 00:00 98.5 110 26 130/79 (96) 94 08/27/17 00:00 110 08/26/17 23:19 104 165/107 08/26/17 22:59 100 169/122 08/26/17 22:00 106 08/26/17 21:41 98 3.00 08/26/17 20:00 128 08/26/17 20:00 98.1 128 18 167/107 (127) 97 08/26/17 19:00 97 Nasal Cannula 2.00 08/26/17 18:00 114 08/26/17 16:00 121 08/26/17 16:00 98.6 121 24 121/88 (99) 98 08/26/17 14:00 115 08/26/17 12:00 98.6 88 13 127/85 (99) 95 08/26/17 12:00 88 I/O 08/26/17 08/26/17 08/26/17 08/27/17 08/27/17 08/27/17 07:00 15:00 23:00 07:00 15:00 23:00 Intake Total 347 ml 132 ml 440 ml 482 ml Balance 347 ml 132 ml 440 ml 482 ml Intake Oral 120 ml 440 ml 360 ml IV Total 227 ml 132 ml 122 ml # Voids 2 5 4 # Bowel Movements 0 0 0 Result Diagram: 08/26/17 0544 08/26/17 0544 Imaging Last Impressions Head CT 08/26/17 0000 Signed Impressions: Service Date/Time: Saturday, August 26, 2017 08:05 - CONCLUSION: Skull fracture on the right focal bone within the encephalomalacic changes both orbitofrontal regions. Small 9 mm right subdural hygroma I have no prior studies for comparison. Due to the exists? Flaco Razo MD FACR Chest X-Ray 08/25/17 0000 Signed Impressions: Service Date/Time: Friday, August 25, 2017 19:34 - CONCLUSION: 1. Basilar airspace disease, right greater the left. Differential diagnosis includes pneumonia and atelectasis/aspiration. Virgilio Wilhelm MD Objective Remarks GENERAL: This is a well-nourished, well-developed patient, in no apparent distress. CARDIOVASCULAR: Regular rate and regular rhythm without murmurs, gallops, or rubs. RESPIRATORY: Clear to auscultation. Breath sounds equal bilaterally. No wheezes , rales, or rhonchi. GASTROINTESTINAL: Abdomen soft, non-tender, nondistended. Normal, active bowel sounds MUSCULOSKELETAL: Extremities without clubbing, cyanosis, or edema. NEURO: lethargic but easily arousable. Medications and IVs Inpatient Medications Acetaminophen (Tylenol) 650 mg Q6H PRN PO PAIN 1-3 OR FEVER >101; Start at 19:30 Albuterol Sulfate (Albuterol Neb) 2.5 mg Q2HR NEB PRN NEB WHEEZING; Start at 08:45 Albuterol/ Ipratropium (Duoneb Neb) 1 ampule Q6HR NEB NEB Last administered on 08/27/17at 09:22; Start 08/26/17 at 10:00 Bisacodyl (Dulcolax Supp) 10 mg DAILY PRN RECTAL SEVERE CONSITIPATION; Start at 19:30 Chlordiazepoxide (Librium) 25 mg BID PO Last administered on 08/27/17at 09:00; Start 08/26/17 at 16:30 Chlorhexidine Gluconate (Chlorhexidine 2% Cloth) 3 pack UNSCH PRN TOP HYGIENIC CARE; Start 08/25/17 at 19:30 Clonidine (Catapres) 0.1 mg Q8HR PO Last administered on 08/27/17at 05:52; Start 08/26/17 at 14:00 Dexmedetomidine HCl 1000 mcg/ Sodium Chloride 250 ml @ 4.87 mls/hr TITRATE PRN IV SEDATION Last administered on 08/26/17 00:17; Start 08/25/17 at 23:59; Stop 08/26/17 at 11:17; Status DC Dexmedetomidine HCl 200 mcg/ Sodium Chloride 52 ml @ 5.06 mls/hr TITRATE PRN IV SEDATION Last administered on 08/25/17 21:52; Start 08/25/17 at 18:45; Stop at 23:48; Status DC Divalproex Sodium (Depakote Dr) 500 mg BID PO Last administered on 08/27/17 09: 01; Start 08/26/17 at 09:00 Enoxaparin Sodium (Lovenox Inj) 40 mg Q24H SQ Last administered on 08/26/17 14: 44; Start 08/26/17 at 12:00 Famotidine (Pepcid Inj) 20 mg Q12HR IV PUSH Last administered on 08/25/17 20:09 ; Start 08/25/17 at 21:00; Stop 08/26/17 at 11:17; Status DC Famotidine (Pepcid) 20 mg Q12HR PO Last administered on 08/27/17 09:01; Start 08/25/17 at 21:00 Haloperidol Lactate (Haldol Inj) 4 mg Q4H PRN IV agitation Last administered on 08/27/17 05:52; Start 08/26/17 at 11:30 Labetalol HCl (Trandate Inj) 10 mg Q1HR PRN IV PUSH SBP>150, DBP>90, HR>65 Last administered on 08/26/17 22:19; Start 08/26/17 at 20:00 Lactulose (Lactulose Liq) 30 ml DAILY PRN PO SEVERE CONSITIPATION; Start at 19:30 Lorazepam (Ativan Inj) 2 mg Q4H PRN IV PUSH agitation Last administered on 22:19; Start 08/26/17 at 16:30 Magnesium Hydroxide (Milk Of Magnesia Liq) 30 ml Q12H PRN PO Mild constipation ; Start 08/25/17 at 19:30 Miscellaneous Information 1 Q361D XX Last administered on 08/25/17 19:30; Start 08/25/17 at 19:30 Nicardipine HCl 25 mg/Sodium Chloride 250 ml @ 50 mls/hr TITRATE PRN IV Blood pressure management Last administered on 08/26/17at 22:59; Start 08/26/17 at 20:00 Ondansetron HCl (Zofran Inj) 4 mg Q6H PRN IV PUSH NAUSEA OR VOMITING Last administered on 08/27/17 09:14; Start 08/25/17 at 19:30 Quetiapine Fumarate (SEROquel) 50 mg Q8H PO Last administered on 08/27/17at 09:01 ; Start 08/26/17 at 17:00 Senna/Docusate Sodium (Elena-Colace) 1 tab BID PO Last administered on 08/27/17 09:01; Start 08/25/17 at 21:00 Sennosides (Senokot) 17.2 mg Q12H PRN PO Moderate constipation; Start 08/25/17 at 19:30 Sodium Chloride (NS Flush) 2 ml BID IV FLUSH Last administered on 08/27/17 09: 02; Start 08/25/17 at 21:00 A/P Assessment and Plan A/P TBI Nondisplaced frontal bone fracture Left frontal subdural hematoma Left frontal subarachnoid hemorrhage Punctate frontal lobe hemorrhagic contusions Agitated delirium Alcohol dependence CT 08/26 Skull fracture on the right, encephalomalacia both orbitofrontal regions. Small 9 mm right subdural hygroma. Dr. Lobo consulted CT Scans were performed at outside hospital 08/14, 08/15, 08/16. CT brain 08/14 - linear nondisplaced frontal bone fracture. Punctate hemorrhagic contusions Inferior frontal lobes. Subdural blood along tentorium and small left frontal subdural hematoma 12 x 4 mm. Bilateral frontal subarachnoid hemorrhage Follow-up CT 08/15 was stable. Follow-up CT 08/16 Stable hemorrhagic contusions and subarachnoid hemorrhage. Subdural blood along the left frontal lobe was no longer apparent. EEG with no focal or diffuse abnormality. Suspect ongoing impulsivity largely related to frontal lobe involvement, though prior hospital course has been complicated by DTs. Continue Seroquel . on clonidine 0.1 mg every 8 hours. Use Ativan as needed. Continue Depakote Thiamine/folic acid/MVI daily. PT/OT/speech therapy for cognitive, swallow evaluation COPD Suspected obstructive sleep apnea Tobacco abuse Was on BiPAP at OSH for suspected sleep apnea, will continue Continue nicotine patch IS every hour DuoNeb every 6 hours Albuterol every 2 hours as needed Hypertension Monitor hemodynamics Obesity Hepatic steatosis Cleared by speech, start regular diet Thrombocytosis, reactive Monitor CBC DVT prophylaxis with subq Lovenox ( ok with neurosurgery). Rachel Leblanc MD Aug 27, 2017 10:33
[2017-08-27] MEDS: ENOXAPARIN SODIUM 40 MG/0.4 ML SYRINGE SQ SCH (11:55)
--- NOTE | 2017-08-27 12:38 | PD.HHIRBSE ---
Patient History Record/History Review Reason for Referral: The patient is a 46 year old unknown handed male status post traumatic brain injury secondary to a fall on 08/14/2017. Reportedly, this patient was intoxicated and fell, striking his head. He was initially treated in [place] and then transferred to this institution. His GCS was 12 on admission. His head CT was notable for nondisplaced frontal bone fracture, bilateral frontal lobe contusions, and left SDH. Since his admit (he is now PTD 13), he received treatment for ETOH withrawal that included Librium, Seroquel and Precedex. He has a history of alcohol dependence and prior history of polysubstance dependence, including crystal methamphetamine. He is referred for baseline neurobehavioral status examination to assess cognitive, behavioral and emotional aspects of the injury and to provide treatment recommendations. To be determined. Past Surgical/Medical History Major surgery in last 100 days: Unknown Hx of Neuro Prob: No (FELL 08/13 RIGHT FRONTAL HEMORRHAGE RIGHT SDH R) Hx Head Injury: Yes Hx of Cardiovascular Prob: Yes Hypertension (High Blood Press: Yes Hx of Respiratory Problem: Yes (\) Hx Chronic Obstructive Pulmona: Yes Hx Sleep Apnea: Yes Blood Transfusion History Will receive Blood /Blood prod: Yes Hx Blood Transfusions: No Medication Active Medications Chlordiazepoxide (Librium) 25 mg BID PO Last administered on 08/27/17at 09:00; Admin Dose 25 MG; Start 08/26/17 at 16:30 Clonidine (Catapres) 0.1 mg Q8HR PO Last administered on 08/27/17at 05:52; Admin Dose 0.1 MG; Start 08/26/17 at 14:00 Labetalol HCl (Trandate Inj) 10 mg Q1HR PRN IV PUSH Last administered on at 22:19; Admin Dose 10 MG; Start 08/26/17 at 20:00 Lorazepam (Ativan Inj) 2 mg Q4H PRN IV PUSH Last administered on 08/26/17 22:19 ; Admin Dose 2 MG; Start 08/26/17 at 16:30 Nicardipine HCl 25 mg/Sodium Chloride 250 ml @ 50 mls/hr TITRATE PRN IV Last administered on 08/26/17at 22:59; Admin Dose 50 MLS/HR; Start 08/26/17 at 20:00 Quetiapine Fumarate (SEROquel) 50 mg Q8H PO Last administered on 08/27/17at 09:01 ; Admin Dose 50 MG; Start 08/26/17 at 17:00 Mental Status Assessment Orientation: oriented to Self, disoriented to Place, disoriented to Time, disoriented to Situation Mental Status: Impaired: Thought processing, Language/Interactions, Attention, Learning/Memory, Problem-Solving Observation The patient is somewhat alert and oriented to person only. He is not oriented to place, time and circumstances surrounding the reason for hospitalization. In terms of attention skills, the patient was unable to remain on task and remember basic or complex instructions. In terms of memory functioning, the patient has no consistent carryover of information. The patient was unable to initiate spontaneous conversation. When he spoke, speech was characterized by adequate prosody, grammar, articulation, volume and rate. Basic naming skills were not intact. Language repetition skills were deferred. The patients comprehensions for basic one- and two-stage commands were not intact. Basic verbal abstraction and problem-solving skills were deferred. The patient appears to posses no insight and awareness into their situation and within the limits of this brief evaluation, poor judgment. Adjustment/Coping Assessment Adjustment/Coping: Severe: Awareness, Insight Observation The patients thought content was free from suicidal, homicidal or paranoid ideation, and the patients thought processes were tangential and concrete. The patients mood was anxious, and the affect was labile. LTG Status: Deferred STG Status: Deferred Team Members: Neuropsychologist Behavior Assessment Agitation: Moderate Observation Behaviorally, the patient demonstrated signs of agitation, impulsivity and disinhibition. There was no remarkable evidence of a formal thought disorder or psychosis from a neuropsychiatric standpoint. LTG - Status: Deferred STG Status: Deferred Team Members: Neuropsychologist Diagnosis/Discharge Plan Impression This is a 46 year old male s/p traumatic brain injury with frontal lobe involvement, and history of polysubstance dependence, most prominent alcohol, for which he has been suffering from withdrawals/D.T. Diagnosis: (1) Major neurocognitive disorder as late effect of traumatic brain injury with behavioral disturbance Status: Acute (2) Alcohol dependence in controlled environment Status: Acute (3) Alcohol withdrawal delirium [facility] Level: IV:Confused/Agitated-maximal assist Disinhibition Score: 38.50 Aggression Score: 21.00 Lability Score: 18.62 Agitated Behavior Total Score: 29 Maximizing acute care outcome It is recommended that the patient be monitored for emergent behavioral impulsivity as the medical condition evolves. This patients neuropathological challenges may limit his rehabilitation potential going forward, and these challenges will require specialized therapeutic skills to maximize outcome. Additionally, the patients family is experiencing ongoing issues of adjustment given the traumatic nature of the injury, and they may benefit from ongoing psychological assistance. At this point in the recovery process, the patient does not have cognitive capacity as the patient is unable to understand a situation and its likely consequences, nor is he able to manipulate information rationally. Cognitive capacity will be assessed throughout the recovery process. I ordered the Agitated Behavior Scale to monitor his present level of agitation and from which we can monitor the effectiveness of any intervention. His ABS presently is 29 (38.5, 21, 18.6) which falls solidly within the moderate to severely agitated range. This intervention will be conducted each nursing shift. I discussed suggestions for pharmacological management with sorting machine operator. Discharge Planning Anticipated Problems Ongoing areas of concern will include behavioral impulsivity, lack of insight and judgment, which is expected to improve with time and treatment. Presently , the patient quite agitated. Given the severity of the patient's injuries it is my clinical opinion that this patient will be unable to return to any type of productive employment for at least one year, perhaps longer and likely never. This patient is not considered safe to discharge home without supervision. Treatment Plan This clinician will continue to follow with you throughout the course of this patients critical care treatment, and I will be available to meet with the patients family/support system to facilitate their understanding and the ongoing care of their family member. The goals of neuropsychological intervention shall be both educational and supportive to the family/support system as is deemed clinically appropriate. Thank you Thank you for the opportunity to assist in this patients care. Matt Oliveros, Ph.D., ABPP Board Certified in Clinical Neuropsychology [place] [employer] [place] Licensed Psychologist #[id number] Matt Oliveros PhD Aug 27, 2017 12:38
--- NOTE | 2017-08-27 14:28 | HHI.NSPN ---
(Patito Benavides) Note Status Status: Progress Note (Patito Benavides) Interval History Interval History Mr. Flores is a 46 year old male who presents as a transfer from [place], [place]. Patient cannot provide history this history obtained from patient's medical record. On 08/14/17 he had a witnessed fall while intoxicated, forward striking his head. There was no reported seizure activity. He sustained a nondisplaced frontal bone fracture, bilateral frontal hemorrhagic contusions, left frontal subdural hematoma (124 mm). He was admitted to the trauma surgery service at the outside hospital with Neurosurgical evaluation and was managed nonoperatively. He had underwent subsequent follow-up CT scans 08/15 and 08/16 which were stable and showing resolution of subdural hematoma. He was also being treated for delirium tremens with Librium, thiamine, folic acid. He has been on Seroquel 50 mg by mouth twice a day and Precedex drip for impulsivity. He was on Keppra for seizure prophylaxis. Another repeat CT brain 08/24 showed reduction of frontal hemorrhages with increase in edema, particularly in left frontal lobe. Bilateral subdural hygromas present and family has requested transfer for second opinion, as well as family members being local here in [facility]. A CT Brain has been completed here at [place]. He is Currently undergoing EEG study. (Patito Benavides) Labs, Micro, & Vital Signs Results Date Time Temp Pulse Resp B/P (MAP) Pulse Ox O2 Delivery O2 Flow Rate FiO2 08/27/17 10:00 107 08/27/17 09:23 94 Nasal Cannula 3.00 08/27/17 08:14 97 Nasal Cannula 3.00 08/27/17 08:00 Nasal Cannula 2.00 08/27/17 08:00 98.4 99 15 124/90 (101) 100 08/27/17 08:00 100 08/27/17 06:00 102 08/27/17 04:00 110 08/27/17 04:00 98.4 110 26 130/91 (104) 94 08/27/17 02:00 114 08/27/17 01:05 110 123/80 08/27/17 00:30 107 134/85 08/27/17 00:09 109 130/79 08/27/17 00:00 98.5 110 26 130/79 (96) 94 08/27/17 00:00 110 08/26/17 23:19 104 165/107 08/26/17 22:59 100 169/122 08/26/17 22:00 106 08/26/17 21:41 98 3.00 08/26/17 20:00 128 08/26/17 20:00 98.1 128 18 167/107 (127) 97 08/26/17 19:00 97 Nasal Cannula 2.00 08/26/17 18:00 114 08/26/17 16:00 121 08/26/17 16:00 98.6 121 24 121/88 (99) 98 Constitutional Vital Signs Date Time Temp Pulse Resp B/P (MAP) Pulse Ox O2 Delivery O2 Flow Rate FiO2 08/27/17 10:00 107 08/27/17 09:23 94 Nasal Cannula 3.00 08/27/17 08:14 97 Nasal Cannula 3.00 08/27/17 08:00 Nasal Cannula 2.00 08/27/17 08:00 98.4 99 15 124/90 (101) 100 08/27/17 08:00 100 08/27/17 06:00 102 08/27/17 04:00 110 08/27/17 04:00 98.4 110 26 130/91 (104) 94 08/27/17 02:00 114 08/27/17 01:05 110 123/80 08/27/17 00:30 107 134/85 08/27/17 00:09 109 130/79 08/27/17 00:00 98.5 110 26 130/79 (96) 94 08/27/17 00:00 110 08/26/17 23:19 104 165/107 08/26/17 22:59 100 169/122 08/26/17 22:00 106 08/26/17 21:41 98 3.00 08/26/17 20:00 128 08/26/17 20:00 98.1 128 18 167/107 (127) 97 08/26/17 19:00 97 Nasal Cannula 2.00 08/26/17 18:00 114 08/26/17 16:00 121 08/26/17 16:00 98.6 121 24 121/88 ( 98 (Patito Benavides) Physical Exam Mr. Flores is alert, confused, oriented to self only. He is able to follow simple commands. Cranial nerve examination demonstrates the pupils to be equal, round, and reactive to light. Extra-ocular movements are intact with normal convergence. Facial motor function appears normal and symmetrical. Face sensation, hearing, visual mcknight, and olfaction can not be assessed properly due to the patients condition. The patient has an intact corneal reflex and a gag reflex. Sternocleidomastoid and trapezius have normal and symmetrical strength. Other cranial nerves are intact. Neck is soft and supple. Cervical spine has a normal range of motion of the cervical spine without pain. There is no tenderness to palpation to the spinous processes or paraspinal muscles. Muscle testing reveals normal bulk and tone overall without rigidity, spasticity , fasciculations, or atrophy. Muscle strength is 5/5 in all muscle groups of both upper and lower extremities. Deep tendon reflexes are 1+ and symmetrical in the biceps, triceps, and brachioradialis, bilaterally, in the upper extremities. In the lower extremities , the patellar and Achilles are 1+, bilaterally. There is a bilateral plantar flexion response. Hoffmanns sign is negative. There is no clonus or other abnormal reflexes noted. Cerebellar examination is limited due to the patient condition, but no obvious deficits are noted. (Patito Benavides) Mr. Flores is alert, confused, oriented to self only. He is able to follow simple commands. Cranial nerve examination demonstrates the pupils to be equal, round, and reactive to light. Extra-ocular movements are intact with normal convergence. Facial motor function appears normal and symmetrical. Face sensation, hearing, visual mcknight, and olfaction can not be assessed properly due to the patients condition. The patient has an intact corneal reflex and a gag reflex. Sternocleidomastoid and trapezius have normal and symmetrical strength. Other cranial nerves are intact. Neck is soft and supple. Cervical spine has a normal range of motion of the cervical spine without pain. There is no tenderness to palpation to the spinous processes or paraspinal muscles. Muscle testing reveals normal bulk and tone overall without rigidity, spasticity , fasciculations, or atrophy. Muscle strength is 5/5 in all muscle groups of both upper and lower extremities. Deep tendon reflexes are 1+ and symmetrical in the biceps, triceps, and brachioradialis, bilaterally, in the upper extremities. In the lower extremities , the patellar and Achilles are 1+, bilaterally. There is a bilateral plantar flexion response. Hoffmanns sign is negative. There is no clonus or other abnormal reflexes noted. Cerebellar examination is limited due to the patient condition, but no obvious deficits are noted. (Dell Lobo MD) Medications Current Medications Current Medications Dexmedetomidine HCl 200 mcg/ Sodium Chloride 52 ml @ 5.06 mls/hr TITRATE PRN IV SEDATION Last administered on 08/25/17 21:52; Start 08/25/17 at 18:45; Stop at 23:48; Status DC Sodium Chloride (NS Flush) 2 ml UNSCH PRN IV FLUSH FLUSH AFTER USING IV ACCESS Last administered on 08/29/17 00:50; Start 08/25/17 at 19:30 Sodium Chloride (NS Flush) 2 ml BID IV FLUSH Last administered on 08/29/17 08: 43; Start 08/25/17 at 21:00 Acetaminophen (Tylenol) 650 mg Q6H PRN PO PAIN 1-3 OR FEVER >101; Start at 19:30 Famotidine (Pepcid Inj) 20 mg Q12HR IV PUSH Last administered on 08/25/17 20:09 ; Start 08/25/17 at 21:00; Stop 08/26/17 at 11:17; Status DC Famotidine (Pepcid) 20 mg Q12HR PO Last administered on 08/29/17 09:12; Start 08/25/17 at 21:00 Ondansetron HCl (Zofran Inj) 4 mg Q6H PRN IV PUSH NAUSEA OR VOMITING Last administered on 08/27/17 09:14; Start 08/25/17 at 19:30 Albuterol/ Ipratropium (Duoneb Neb) 1 ampule Q6HR NEB INH Last administered on 08/26/17 08:20; Start 08/25/17 at 22:00; Stop 08/26/17 at 08:39; Status DC Albuterol Sulfate (Albuterol Neb) 2.5 mg Q2HR NEB PRN INH SOB/WHEEZING; Start 08/25/17 at 19:30; Stop 08/26/17 at 08:39; Status DC Miscellaneous Information 1 [id number] Last administered on 08/25/17at 19:30; Start 08/25/17 at 19:30 Chlorhexidine Gluconate (Chlorhexidine 2% Cloth) 3 pack Taper DAILY@04 TOP Last administered on 08/26/17at 04:00; Start 08/26/17 at 04:00; Stop 08/22/18 at 03: 59 Chlorhexidine Gluconate (Chlorhexidine 2% Cloth) 3 pack UNSCH PRN TOP HYGIENIC CARE; Start 08/25/17 at 19:30 Senna/Docusate Sodium (Elena-Colace) 1 tab BID PO Last administered on 08/29/17at 09:13; Start 08/25/17 at 21:00 Magnesium Hydroxide (Milk Of Magnesia Liq) 30 ml Q12H PRN PO Mild constipation ; Start 08/25/17 at 19:30 Sennosides (Senokot) 17.2 mg Q12H PRN PO Moderate constipation; Start 08/25/17 at 19:30 Bisacodyl (Dulcolax Supp) 10 mg DAILY PRN RECTAL SEVERE CONSITIPATION; Start at 19:30 Lactulose (Lactulose Liq) 30 ml DAILY PRN PO SEVERE CONSITIPATION; Start at 19:30 Quetiapine Fumarate (SEROquel) 50 mg Q12HR PO Last administered on 08/26/17 09: 11; Start 08/25/17 at 21:00; Stop 08/26/17 at 11:20; Status DC Dexmedetomidine HCl 1000 mcg/ Sodium Chloride 250 ml @ 4.87 mls/hr TITRATE PRN IV SEDATION Last administered on 08/26/17 00:17; Start 08/25/17 at 23:59; Stop 08/26/17 at 11:17; Status DC Divalproex Sodium (Depakote Dr) 500 mg BID PO Last administered on 08/29/17 09: 12; Start 08/26/17 at 09:00 Albuterol/ Ipratropium (Duoneb Neb) 1 ampule Q6HR NEB NEB Last administered on 08/29/17at 08:49; Start 08/26/17 at 10:00; Stop 08/29/17 at 10:21; Status DC Albuterol Sulfate (Albuterol Neb) 2.5 mg Q2HR NEB PRN NEB WHEEZING; Start at 08:45 Quetiapine Fumarate (SEROquel) 50 mg Q8H PO Last administered on 08/29/17 09:13 ; Start 08/26/17 at 17:00 Haloperidol Lactate (Haldol Inj) 4 mg Q4H PRN IV agitation Last administered on 08/29/17 11:49; Start 08/26/17 at 11:30 Lorazepam (Ativan Inj) 1 mg Q4H PRN IV PUSH agitation Last administered on 14:43; Start 08/26/17 at 11:30; Stop 08/26/17 at 16:21; Status DC Clonidine (Catapres) 0.1 mg Q8HR PO Last administered on 08/29/17 05:21; Start 08/26/17 at 14:00 Enoxaparin Sodium (Lovenox Inj) 40 mg Q24H SQ Last administered on 08/29/17 11: 47; Start 08/26/17 at 12:00 Lorazepam (Ativan Inj) 2 mg Q4H PRN IV PUSH agitation Last administered on 12:33; Start 08/26/17 at 16:30 Chlordiazepoxide (Librium) 25 mg BID PO Last administered on 08/29/17 09:12; Start 08/26/17 at 16:30 Labetalol HCl (Trandate Inj) 10 mg Q1HR PRN IV PUSH SBP>150, DBP>90, HR>65 Last administered on 08/28/17 21:04; Start 08/26/17 at 20:00 Nicardipine HCl 25 mg/Sodium Chloride 250 ml @ 50 mls/hr TITRATE PRN IV Blood pressure management Last administered on 08/26/17 22:59; Start 08/26/17 at 20:00 Magnesium Hydroxide (Milk Of Magnesia Liq) 30 ml DAILY PRN PO MILD CONSTIPATION Last administered on 08/29/17 00:56; Start 08/28/17 at 12:15 Thiamine HCl (Vitamin B1) 100 mg DAILY PO Last administered on 3/8/18at 11:49; Start 08/29/17 at 10:30 Multivitamins (Theragran) 1 tab DAILY PO Last administered on 08/29/17at 11:50; Start 08/29/17 at 10:30 Folic Acid (Folate) 1 mg DAILY PO Last administered on 08/29/17at 11:47; Start at 10:30 (Dell Lobo MD) Attending Statement I again reviewed his radiological studies Head CT 08/26/17 0000 Signed Impressions: Service Date/Time: Saturday, August 26, 2017 08:05 - CONCLUSION: Skull fracture on the right focal bone within the encephalomalacic changes both orbitofrontal regions. Small 9 mm right subdural hygroma I have no prior studies for comparison. Due to the exists? Flaco Razo MD FACR Chest X-Ray 08/25/17 0000 Signed Impressions: Service Date/Time: Friday, August 25, 2017 19:34 - CONCLUSION: 1. Basilar airspace disease, right greater the left. Differential diagnosis includes pneumonia and atelectasis/aspiration. Virgilio Wilhelm MD Continue neuro checks in a serial fashion. Continue non operative management of traumatic head injury EEG will be reviewed Pulmonary. Continue aggressive pulmonary toilette, nasotracheal suction, and breathing treatments with nebulizers. Daily PT and OT Nutrition. Tolerating Oral diet Renal. Continue to monitor closely urine output, BUN and creatinine Endocrine. Continue to Monitor serial Acu checks and SSI as needed in detail ID continue to monitor for signs of infection Continue Protonix for stress ulcer prophylaxis Caprini VTE Risk Assessment Caprini VTE Risk Assessment Caprini Risk Assessment Model Point Value = 1 Point Value = 2 Point Value = 3 Point Value = 5 Age 41-60 Minor surgery BMI > 25 kg/m2 Swollen legs Varicose veins or History of unexplained or recurrent spontaneous Oral contraceptives or hormone replacement Sepsis (< 1 month) Serious lung disease, including pneumonia (< 1 month) Abnormal pulmonary function Acute myocardial infarction Congestive heart failure (< 1 month) History of inflammatory bowel disease Medical patient at bed rest Age 61-74 Arthroscopic surgery Major open surgery (> 45 min) Laparoscopic surgery (> 45 min) Malignancy Confined to bed (> 72 hours) Immobilizing plaster cast Central venous access Age >= 75 History of VTE Family history of VTE Factor V Leiden Prothrombin [id number] Lupus anticoagulant Anticardiolipin antibodies Elevated serum homocysteine Heparin-induced thrombocytopenia Other congenital or acquired thrombophilia Stroke (< 1 month) Elective arthroplasty Hip, pelvis, or leg fracture Acute spinal cord injury (< 1 month) Prophylaxis Regimen Total Risk Factor Score Risk Level Prophylaxis Regimen 0-1 Low Early ambulation 2 Moderate Order ONE of the following: *Sequential Compression Device (SCD) *Heparin 5000 units SQ BID 3-4 Higher Order ONE of the following medications: *Heparin 5000 units SQ TID *Enoxaparin/Lovenox 40 mg SQ daily (WT < 150 kg, CrCl > 30 mL/min) *Enoxaparin/Lovenox 30 mg SQ daily (WT < 150 kg, CrCl > 10-29 mL/min) *Enoxaparin/Lovenox 30 mg SQ BID (WT < 150 kg, CrCl > 30 mL/min) AND/OR *Sequential Compression Device (SCD) 5 or more Highest Order ONE of the following medications: *Heparin 5000 units SQ TID (Preferred with Epidurals) *Enoxaparin/Lovenox 40 mg SQ daily (WT < 150 kg, CrCl > 30 mL/min) *Enoxaparin/Lovenox 30 mg SQ daily (WT < 150 kg, CrCl > 10-29 mL/min) *Enoxaparin/Lovenox 30 mg SQ BID (WT < 150 kg, CrCl > 30 mL/min) AND *Sequential Compression Device (SCD) Continue Cosmo hose and SCD's for DVT prophylaxis The exam, history, and the medical decision-making described in the above note were completed with the assistance of the mid-level provider. I reviewed and agree with the findings presented. I attest that I had a [id number] encounter with the patient on the same day, and personally performed and documented my assessment and findings in the medical record. (Dell Lobo MD) Patito Benavides Aug 27, 2017 14:28 Dell Lobo MD Aug 29, 2017 13:45
[2017-08-28] VITALS (15 sets, daily range): BP systolic 122–146; BP diastolic 76–94; PULSE 82–127; RESP 12–19; TEMP 97.7–98.4; O2SAT 92–97
[2017-08-28] MEDS: QUEtiapine FUMARATE 25 MG TAB PO SCH ×3 (00:58→17:39)
[2017-08-28] MEDS: SODIUM CHLORIDE 0.9% FLUSH 10 ML FLUSH IV FLUSH PRN (01:20)
[2017-08-28] MEDS: CHLORHEXIDINE GLUCONATE 2 % 1 PACK (2 CLOTHS) TOP SCH (04:00)
[2017-08-28] MEDS: RESP: ALBUTEROL 2.5 MG/IPRATROPIUM 0.5 MG NEB (SCH) NEB ×4 (04:21→20:17)
[2017-08-28] MEDS: cloNIDine HCL 0.1 MG TAB PO SCH ×3 (05:24→21:03)
[2017-08-28] MEDS: chlordiazePOXIDE 25 MG CAP PO SCH ×2 (09:58→21:03)
[2017-08-28] MEDS: DOCUSATE SODIUM 50 MG/SENNA 8.6 MG TAB PO SCH ×2 (09:58→21:03)
[2017-08-28] MEDS: DIVALPROEX DR 500 MG TABEC PO SCH ×2 (09:59→21:03)
[2017-08-28] MEDS: FAMOTIDINE 20 MG TAB PO SCH ×2 (09:59→21:03)
[2017-08-28] MEDS: SODIUM CHLORIDE 0.9% FLUSH 10 ML FLUSH IV FLUSH SCH ×2 (09:59→21:03)
[2017-08-28] MEDS: HALOPERIDOL LACTATE 5 MG/ML AMP IV PRN (10:12)
--- NOTE | 2017-08-28 12:14 | HHI.PR ---
Subjective Remarks in no acute distress. agitated at times. on restraints. d/w the RN and no other acute issues over night. Objective Vitals Vital Signs Date Time Temp Pulse Resp B/P (MAP) Pulse Ox O2 Delivery O2 Flow Rate FiO2 08/28/17 08:30 97 08/28/17 08:00 90 08/28/17 08:00 98.1 111 16 146/88 (107) 97 08/28/17 08:00 97 Room Air 08/28/17 06:00 82 08/28/17 04:23 94 Nasal Cannula 3.00 08/28/17 04:00 102 08/28/17 04:00 98.4 102 15 139/76 (97) 96 08/28/17 03:00 88 Nasal Cannula 2.00 08/28/17 02:00 88 08/28/17 00:00 105 08/28/17 00:00 97.8 105 18 137/94 (108) 94 08/27/17 22:02 99 Nasal Cannula 08/27/17 22:00 119 08/27/17 20:00 112 08/27/17 20:00 98.0 112 15 134/89 (104) 92 08/27/17 19:00 92 Room Air 08/27/17 18:00 87 08/27/17 16:00 98.6 120 29 163/94 (117) 99 08/27/17 16:00 90 08/27/17 14:00 82 I/O 08/27/17 08/27/17 08/27/17 08/28/17 08/28/17 08/28/17 07:00 15:00 23:00 07:00 15:00 23:00 Intake Total 482 ml 880 ml 480 ml Balance 482 ml 880 ml 480 ml Intake Oral 360 ml 880 ml 480 ml IV Total 122 ml # Voids 4 5 4 # Bowel Movements 0 0 0 Result Diagram: 08/26/17 0544 08/26/17 0544 Imaging Last Impressions Head CT 08/26/17 0000 Signed Impressions: Service Date/Time: Saturday, August 26, 2017 08:05 - CONCLUSION: Skull fracture on the right focal bone within the encephalomalacic changes both orbitofrontal regions. Small 9 mm right subdural hygroma I have no prior studies for comparison. Due to the exists? Flaco Razo MD FACR Chest X-Ray 08/25/17 0000 Signed Impressions: Service Date/Time: Friday, August 25, 2017 19:34 - CONCLUSION: 1. Basilar airspace disease, right greater the left. Differential diagnosis includes pneumonia and atelectasis/aspiration. Virgilio Wilhelm MD Objective Remarks GENERAL: This is a well-nourished, well-developed patient, in no apparent distress. CARDIOVASCULAR: Regular rate and regular rhythm without murmurs, gallops, or rubs. RESPIRATORY: Clear to auscultation. Breath sounds equal bilaterally. No wheezes , rales, or rhonchi. GASTROINTESTINAL: Abdomen soft, non-tender, nondistended. Normal, active bowel sounds MUSCULOSKELETAL: Extremities without clubbing, cyanosis, or edema. NEURO: lethargic but easily arousable. Medications and IVs Inpatient Medications Acetaminophen (Tylenol) 650 mg Q6H PRN PO PAIN 1-3 OR FEVER >101; Start at 19:30 Albuterol Sulfate (Albuterol Neb) 2.5 mg Q2HR NEB PRN NEB WHEEZING; Start at 08:45 Albuterol/ Ipratropium (Duoneb Neb) 1 ampule Q6HR NEB NEB Last administered on 08/28/17at 08:29; Start 08/26/17 at 10:00 Bisacodyl (Dulcolax Supp) 10 mg DAILY PRN RECTAL SEVERE CONSITIPATION; Start at 19:30 Chlordiazepoxide (Librium) 25 mg BID PO Last administered on 08/28/17at 09:58; Start 08/26/17 at 16:30 Chlorhexidine Gluconate (Chlorhexidine 2% Cloth) 3 pack UNSCH PRN TOP HYGIENIC CARE; Start 08/25/17 at 19:30 Clonidine (Catapres) 0.1 mg Q8HR PO Last administered on 08/28/17at 05:24; Start 08/26/17 at 14:00 Dexmedetomidine HCl 1000 mcg/ Sodium Chloride 250 ml @ 4.87 mls/hr TITRATE PRN IV SEDATION Last administered on 08/26/17at 00:17; Start 08/25/17 at 23:59; Stop 08/26/17 at 11:17; Status DC Dexmedetomidine HCl 200 mcg/ Sodium Chloride 52 ml @ 5.06 mls/hr TITRATE PRN IV SEDATION Last administered on 08/25/17 21:52; Start 08/25/17 at 18:45; Stop at 23:48; Status DC Divalproex Sodium (Depakote Dr) 500 mg BID PO Last administered on 08/28/17 09: 59; Start 08/26/17 at 09:00 Enoxaparin Sodium (Lovenox Inj) 40 mg Q24H SQ Last administered on 08/27/17 11: 55; Start 08/26/17 at 12:00 Famotidine (Pepcid Inj) 20 mg Q12HR IV PUSH Last administered on 08/25/17 20:09 ; Start 08/25/17 at 21:00; Stop 08/26/17 at 11:17; Status DC Famotidine (Pepcid) 20 mg Q12HR PO Last administered on 08/28/17 09:59; Start 08/25/17 at 21:00 Haloperidol Lactate (Haldol Inj) 4 mg Q4H PRN IV agitation Last administered on 08/28/17 10:12; Start 08/26/17 at 11:30 Labetalol HCl (Trandate Inj) 10 mg Q1HR PRN IV PUSH SBP>150, DBP>90, HR>65 Last administered on 08/26/17 22:19; Start 08/26/17 at 20:00 Lactulose (Lactulose Liq) 30 ml DAILY PRN PO SEVERE CONSITIPATION; Start at 19:30 Lorazepam (Ativan Inj) 2 mg Q4H PRN IV PUSH agitation Last administered on 22:19; Start 08/26/17 at 16:30 Magnesium Hydroxide (Milk Of Magnesia Liq) 30 ml Q12H PRN PO Mild constipation ; Start 08/25/17 at 19:30 Miscellaneous Information 1 Q361D XX Last administered on 08/25/17 19:30; Start 08/25/17 at 19:30 Nicardipine HCl 25 mg/Sodium Chloride 250 ml @ 50 mls/hr TITRATE PRN IV Blood pressure management Last administered on 08/26/17 22:59; Start 08/26/17 at 20:00 Ondansetron HCl (Zofran Inj) 4 mg Q6H PRN IV PUSH NAUSEA OR VOMITING Last administered on 08/27/17at 09:14; Start 08/25/17 at 19:30 Quetiapine Fumarate (SEROquel) 50 mg Q8H PO Last administered on 08/28/17 09:59 ; Start 08/26/17 at 17:00 Senna/Docusate Sodium (Elena-Colace) 1 tab BID PO Last administered on 08/28/17 09:58; Start 08/25/17 at 21:00 Sennosides (Senokot) 17.2 mg Q12H PRN PO Moderate constipation; Start 08/25/17 at 19:30 Sodium Chloride (NS Flush) 2 ml BID IV FLUSH Last administered on 08/28/17 09: 59; Start 08/25/17 at 21:00 A/P Assessment and Plan A/P TBI Nondisplaced frontal bone fracture Left frontal subdural hematoma Left frontal subarachnoid hemorrhage Punctate frontal lobe hemorrhagic contusions Agitated delirium Alcohol dependence CT 08/26 Skull fracture on the right, encephalomalacia both orbitofrontal regions. Small 9 mm right subdural hygroma. Dr. Lobo consulted CT Scans were performed at outside hospital 08/14, 08/15, 08/16. CT brain 08/14 - linear nondisplaced frontal bone fracture. Punctate hemorrhagic contusions Inferior frontal lobes. Subdural blood along tentorium and small left frontal subdural hematoma 12 x 4 mm. Bilateral frontal subarachnoid hemorrhage Follow-up CT 08/15 was stable. Follow-up CT 08/16 Stable hemorrhagic contusions and subarachnoid hemorrhage. Subdural blood along the left frontal lobe was no longer apparent. EEG with no focal or diffuse abnormality. Suspect ongoing impulsivity largely related to frontal lobe involvement, though prior hospital course has been complicated by DTs. Continue Seroquel . on clonidine 0.1 mg every 8 hours. Use Ativan as needed. Continue Depakote Thiamine/folic acid/MVI daily. PT/OT/speech therapy for cognitive, swallow evaluation COPD Suspected obstructive sleep apnea Tobacco abuse Was on BiPAP at OSH for suspected sleep apnea, will continue Continue nicotine patch IS every hour DuoNeb every 6 hours Albuterol every 2 hours as needed Hypertension Monitor hemodynamics Obesity Hepatic steatosis Cleared by speech, start regular diet Thrombocytosis, reactive Monitor CBC DVT prophylaxis with subq Lovenox ( ok with neurosurgery). transfer to telemetry if ok with neurosurgery. Rachel Leblanc MD Aug 28, 2017 12:14
[2017-08-28] MEDS ORDERED: MAGNESIUM HYDROXIDE SUSP 30 ML CUP PO PRN (12:15)
--- NOTE | 2017-08-28 14:13 | HHI.NSPN ---
(Patito Benavides) Note Status Status: Progress Note (Patito Benavides) Interval History Interval History Mr. Flores is a 46 year old male who presents as a transfer from [place], [place]. Patient cannot provide history this history obtained from patient's medical record. On 08/14/17 he had a witnessed fall while intoxicated, forward striking his head. There was no reported seizure activity. He sustained a nondisplaced frontal bone fracture, bilateral frontal hemorrhagic contusions, left frontal subdural hematoma (124 mm). He was admitted to the trauma surgery service at the outside hospital with Neurosurgical evaluation and was managed nonoperatively. He had underwent subsequent follow-up CT scans 08/15 and 08/16 which were stable and showing resolution of subdural hematoma. He was also being treated for delirium tremens with Librium, thiamine, folic acid. He has been on Seroquel 50 mg by mouth twice a day and Precedex drip for impulsivity. He was on Keppra for seizure prophylaxis. Another repeat CT brain 08/24 showed reduction of frontal hemorrhages with increase in edema, particularly in left frontal lobe. Bilateral subdural hygromas present and family has requested transfer for second opinion, as well as family members being local here in [facility]. A CT Brain has been completed here at [place]. He is Currently undergoing EEG study. 08/28: confused, following simple commands. reported to have ambulated with PT this am. (Patito Benavides) Labs, Micro, & Vital Signs Results Date Time Temp Pulse Resp B/P (MAP) Pulse Ox O2 Delivery O2 Flow Rate FiO2 08/28/17 12:00 107 08/28/17 12:00 98.2 107 19 145/82 (103) 94 08/28/17 10:00 127 08/28/17 08:30 97 08/28/17 08:00 90 08/28/17 08:00 98.1 111 16 146/88 (107) 97 08/28/17 08:00 97 Room Air 08/28/17 06:00 82 08/28/17 04:23 94 Nasal Cannula 3.00 08/28/17 04:00 102 08/28/17 04:00 98.4 102 15 139/76 (97) 96 08/28/17 03:00 88 Nasal Cannula 2.00 08/28/17 02:00 88 08/28/17 00:00 105 08/28/17 00:00 97.8 105 18 137/94 (108) 94 08/27/17 22:02 99 Nasal Cannula 08/27/17 22:00 119 08/27/17 20:00 112 08/27/17 20:00 98.0 112 15 134/89 (104) 92 08/27/17 19:00 92 Room Air 08/27/17 18:00 87 08/27/17 16:00 98.6 120 29 163/94 (117) 99 08/27/17 16:00 90 08/27/17 14:00 82 Constitutional Vital Signs Date Time Temp Pulse Resp B/P (MAP) Pulse Ox O2 Delivery O2 Flow Rate FiO2 08/28/17 12:00 107 08/28/17 12:00 98.2 107 19 145/82 (103) 94 08/28/17 10:00 127 08/28/17 08:30 97 08/28/17 08:00 90 08/28/17 08:00 98.1 111 16 146/88 (107) 97 08/28/17 08:00 97 Room Air 08/28/17 06:00 82 08/28/17 04:23 94 Nasal Cannula 3.00 08/28/17 04:00 102 08/28/17 04:00 98.4 102 15 139/76 (97) 96 08/28/17 03:00 88 Nasal Cannula 2.00 08/28/17 02:00 88 08/28/17 00:00 105 08/28/17 00:00 97.8 105 18 137/94 (108) 94 08/27/17 22:02 99 Nasal Cannula 08/27/17 22:00 119 08/27/17 20:00 112 08/27/17 20:00 98.0 112 15 134/89 (104) 92 08/27/17 19:00 92 Room Air 08/27/17 18:00 87 08/27/17 16:00 98.6 120 29 163/94 (117) 99 08/27/17 16:00 90 08/27/17 14:00 82 (Patito Benavides) Physical Exam GEN: Mr. Flores is resting comfortably, no acute distress HEENT: normocephalic, nonicteric sclera Neuro: alert, oriented to self only. Cranial nerve examination: pupils to be equal, round, and reactive to light. Extra-ocular movements are intact with normal convergence. Facial motor function appears normal and symmetrical. Neck is soft and supple. Musculoskeletal: no obvious deformities, moves all four extremities Cerebellar examination is limited due to the patient condition, but no obvious deficits are noted. Heart: regular rate, rhythm Respiratory: clear Skin: warm, dry (Patito Benavides) Mr. Flores is alert, confused, oriented to self only. He is able to follow simple commands. Cranial nerve examination demonstrates the pupils to be equal, round, and reactive to light. Extra-ocular movements are intact with normal convergence. Facial motor function appears normal and symmetrical. Face sensation, hearing, visual mcknight, and olfaction can not be assessed properly due to the patients condition. The patient has an intact corneal reflex and a gag reflex. Sternocleidomastoid and trapezius have normal and symmetrical strength. Other cranial nerves are intact. Neck is soft and supple. Cervical spine has a normal range of motion of the cervical spine without pain. There is no tenderness to palpation to the spinous processes or paraspinal muscles. Muscle testing reveals normal bulk and tone overall without rigidity, spasticity , fasciculations, or atrophy. Muscle strength is 5/5 in all muscle groups of both upper and lower extremities. Deep tendon reflexes are 1+ and symmetrical in the biceps, triceps, and brachioradialis, bilaterally, in the upper extremities. In the lower extremities , the patellar and Achilles are 1+, bilaterally. There is a bilateral plantar flexion response. Hoffmanns sign is negative. There is no clonus or other abnormal reflexes noted. Cerebellar examination is limited due to the patient condition, but no obvious deficits are noted. (Dell Lobo MD) Medications Current Medications Current Medications Medications (Trade) Dose Ordered Sig/Alfa Route PRN Reason Start Time Stop Time Status Last Admin Dose Admin Sodium Chloride (NS Flush) 2 ml UNSCH PRN IV FLUSH FLUSH AFTER USING IV ACCESS 08/25/17 19:30 08/28/17 01:20 Sodium Chloride (NS Flush) 2 ml BID IV FLUSH 08/25/17 21:00 08/28/17 09:59 Acetaminophen (Tylenol) 650 mg Q6H PRN PO PAIN 1-3 OR FEVER >101 08/25/17 19:30 Famotidine (Pepcid) 20 mg Q12HR PO 08/25/17 21:00 08/28/17 09:59 Ondansetron HCl (Zofran Inj) 4 mg Q6H PRN IV PUSH NAUSEA OR VOMITING 08/25/17 19:30 08/27/17 09:14 Miscellaneous Information 1 Q361D XX 08/25/17 19:30 08/25/17 19:30 Chlorhexidine Gluconate (Chlorhexidine 2% Cloth) 3 pack Taper DAILY@04 TOP 08/26/17 04:00 08/22/18 03:59 08/26/17 04:00 Chlorhexidine Gluconate (Chlorhexidine 2% Cloth) 3 pack UNSCH PRN TOP HYGIENIC CARE 08/25/17 19:30 Senna/Docusate Sodium (Elena-Colace) 1 tab BID PO 08/25/17 21:00 08/28/17 09:58 Magnesium Hydroxide (Milk Of Magnesia Liq) 30 ml Q12H PRN PO Mild constipation 08/25/17 19:30 Sennosides (Senokot) 17.2 mg Q12H PRN PO Moderate constipation 08/25/17 19:30 Bisacodyl (Dulcolax Supp) 10 mg DAILY PRN RECTAL SEVERE CONSITIPATION 08/25/17 19:30 Lactulose (Lactulose Liq) 30 ml DAILY PRN PO SEVERE CONSITIPATION 08/25/17 19:30 Divalproex Sodium (Depakote Dr) 500 mg BID PO 08/26/17 09:00 08/28/17 09:59 Albuterol/ Ipratropium (Duoneb Neb) 1 ampule Q6HR NEB NEB 08/26/17 10:00 08/28/17 08:29 Albuterol Sulfate (Albuterol Neb) 2.5 mg Q2HR NEB PRN NEB WHEEZING 08/26/17 08:45 Quetiapine Fumarate (SEROquel) 50 mg Q8H PO 08/26/17 17:00 08/28/17 09:59 Haloperidol Lactate (Haldol Inj) 4 mg Q4H PRN IV agitation 08/26/17 11:30 08/28/17 10:12 Clonidine (Catapres) 0.1 mg Q8HR PO 08/26/17 14:00 08/28/17 05:24 Enoxaparin Sodium (Lovenox Inj) 40 mg Q24H SQ 08/26/17 12:00 08/27/17 11:55 Lorazepam (Ativan Inj) 2 mg Q4H PRN IV PUSH agitation 08/26/17 16:30 08/26/17 22:19 Chlordiazepoxide (Librium) 25 mg BID PO 08/26/17 16:30 08/28/17 09:58 Labetalol HCl (Trandate Inj) 10 mg Q1HR PRN IV PUSH SBP>150, DBP>90, HR>65 08/26/17 20:00 08/26/17 22:19 Nicardipine HCl 25 mg/Sodium Chloride 250 ml @ 50 mls/hr TITRATE PRN IV Blood pressure management 08/26/17 20:00 08/26/17 22:59 Magnesium Hydroxide (Milk Of Magnesia Liq) 30 ml DAILY PRN PO MILD CONSTIPATION 08/28/17 12:15 (Patito Benavides) Current Medications Current Medications Dexmedetomidine HCl 200 mcg/ Sodium Chloride 52 ml @ 5.06 mls/hr TITRATE PRN IV SEDATION Last administered on 08/25/17 21:52; Start 08/25/17 at 18:45; Stop at 23:48; Status DC Sodium Chloride (NS Flush) 2 ml UNSCH PRN IV FLUSH FLUSH AFTER USING IV ACCESS Last administered on 08/29/17at 00:50; Start 08/25/17 at 19:30 Sodium Chloride (NS Flush) 2 ml BID IV FLUSH Last administered on 08/29/17at 08: 43; Start 08/25/17 at 21:00 Acetaminophen (Tylenol) 650 mg Q6H PRN PO PAIN 1-3 OR FEVER >101; Start at 19:30 Famotidine (Pepcid Inj) 20 mg Q12HR IV PUSH Last administered on 08/25/17at 20:09 ; Start 08/25/17 at 21:00; Stop 08/26/17 at 11:17; Status DC Famotidine (Pepcid) 20 mg Q12HR PO Last administered on 08/29/17at 09:12; Start 08/25/17 at 21:00 Ondansetron HCl (Zofran Inj) 4 mg Q6H PRN IV PUSH NAUSEA OR VOMITING Last administered on 08/27/17at 09:14; Start 08/25/17 at 19:30 Albuterol/ Ipratropium (Duoneb Neb) 1 ampule Q6HR NEB INH Last administered on 08/26/17at 08:20; Start 08/25/17 at 22:00; Stop 08/26/17 at 08:39; Status DC Albuterol Sulfate (Albuterol Neb) 2.5 mg Q2HR NEB PRN INH SOB/WHEEZING; Start 08/25/17 at 19:30; Stop 08/26/17 at 08:39; Status DC Miscellaneous Information 1 Q361D XX Last administered on 08/25/17at 19:30; Start 08/25/17 at 19:30 Chlorhexidine Gluconate (Chlorhexidine 2% Cloth) 3 pack Taper DAILY@04 TOP Last administered on 08/26/17at 04:00; Start 08/26/17 at 04:00; Stop 08/22/18 at 03: 59 Chlorhexidine Gluconate (Chlorhexidine 2% Cloth) 3 pack UNSCH PRN TOP HYGIENIC CARE; Start 08/25/17 at 19:30 Senna/Docusate Sodium (Elena-Colace) 1 tab BID PO Last administered on 08/29/17at 09:13; Start 08/25/17 at 21:00 Magnesium Hydroxide (Milk Of Magnesia Liq) 30 ml Q12H PRN PO Mild constipation ; Start 08/25/17 at 19:30 Sennosides (Senokot) 17.2 mg Q12H PRN PO Moderate constipation; Start 08/25/17 at 19:30 Bisacodyl (Dulcolax Supp) 10 mg DAILY PRN RECTAL SEVERE CONSITIPATION; Start at 19:30 Lactulose (Lactulose Liq) 30 ml DAILY PRN PO SEVERE CONSITIPATION; Start at 19:30 Quetiapine Fumarate (SEROquel) 50 mg Q12HR PO Last administered on 08/26/17 09: 11; Start 08/25/17 at 21:00; Stop 08/26/17 at 11:20; Status DC Dexmedetomidine HCl 1000 mcg/ Sodium Chloride 250 ml @ 4.87 mls/hr TITRATE PRN IV SEDATION Last administered on 08/26/17 00:17; Start 08/25/17 at 23:59; Stop 08/26/17 at 11:17; Status DC Divalproex Sodium (Depakote Dr) 500 mg BID PO Last administered on 08/29/17 09: 12; Start 08/26/17 at 09:00 Albuterol/ Ipratropium (Duoneb Neb) 1 ampule Q6HR NEB NEB Last administered on 08/29/17 08:49; Start 08/26/17 at 10:00; Stop 08/29/17 at 10:21; Status DC Albuterol Sulfate (Albuterol Neb) 2.5 mg Q2HR NEB PRN NEB WHEEZING; Start at 08:45 Quetiapine Fumarate (SEROquel) 50 mg Q8H PO Last administered on 08/29/17 09:13 ; Start 08/26/17 at 17:00 Haloperidol Lactate (Haldol Inj) 4 mg Q4H PRN IV agitation Last administered on 08/29/17 11:49; Start 08/26/17 at 11:30 Lorazepam (Ativan Inj) 1 mg Q4H PRN IV PUSH agitation Last administered on 14:43; Start 08/26/17 at 11:30; Stop 08/26/17 at 16:21; Status DC Clonidine (Catapres) 0.1 mg Q8HR PO Last administered on 08/29/17 05:21; Start 08/26/17 at 14:00 Enoxaparin Sodium (Lovenox Inj) 40 mg Q24H SQ Last administered on 08/29/17 11: 47; Start 08/26/17 at 12:00 Lorazepam (Ativan Inj) 2 mg Q4H PRN IV PUSH agitation Last administered on 12:33; Start 08/26/17 at 16:30 Chlordiazepoxide (Librium) 25 mg BID PO Last administered on 3/8/18at 09:12; Start 08/26/17 at 16:30 Labetalol HCl (Trandate Inj) 10 mg Q1HR PRN IV PUSH SBP>150, DBP>90, HR>65 Last administered on 08/28/17 21:04; Start 08/26/17 at 20:00 Nicardipine HCl 25 mg/Sodium Chloride 250 ml @ 50 mls/hr TITRATE PRN IV Blood pressure management Last administered on 08/26/17 22:59; Start 08/26/17 at 20:00 Magnesium Hydroxide (Milk Of Magnkenyon Liq) 30 ml DAILY PRN PO MILD CONSTIPATION Last administered on 08/29/17 00:56; Start 08/28/17 at 12:15 Thiamine HCl (Vitamin B1) 100 mg DAILY PO Last administered on 08/29/17 11:49; Start 08/29/17 at 10:30 Multivitamins (Theragran) 1 tab DAILY PO Last administered on 08/29/17 11:50; Start 08/29/17 at 10:30 Folic Acid (Folate) 1 mg DAILY PO Last administered on 08/29/17 11:47; Start at 10:30 (Dell Lobo MD) Medical Decision Making MDM Remarks 46 year old male with traumatic brain injury Head CT 08/26/17 Skull fracture on the right focal bone within the encephalomalacic changes both orbitofrontal regions. Small 9 mm right subdural hygroma (Patito Benavides) Plan Plan Remarks nonoperative management cont therapy and rehab ok to transfer out of unit or dc to rehab from [facility] standpoint (Patito Benavides) Attending Statement ABOVE Continue neuro checks in a serial fashion. Continue non operative management of traumatic head injury EEG will be reviewed Pulmonary. Continue aggressive pulmonary toilette, nasotracheal suction, and breathing treatments with nebulizers. Daily PT and OT Nutrition. Tolerating Oral diet Renal. Continue to monitor closely urine output, BUN and creatinine Endocrine. Continue to Monitor serial Acu checks and SSI as needed in detail ID continue to monitor for signs of infection Continue Protonix for stress ulcer prophylaxis Caprini VTE Risk Assessment Caprini VTE Risk Assessment Caprini Risk Assessment Model Point Value = 1 Point Value = 2 Point Value = 3 Point Value = 5 Age 41-60 Minor surgery BMI > 25 kg/m2 Swollen legs Varicose veins or History of unexplained or recurrent spontaneous Oral contraceptives or hormone replacement Sepsis (< 1 month) Serious lung disease, including pneumonia (< 1 month) Abnormal pulmonary function Acute myocardial infarction Congestive heart failure (< 1 month) History of inflammatory bowel disease Medical patient at bed rest Age 61-74 Arthroscopic surgery Major open surgery (> 45 min) Laparoscopic surgery (> 45 min) Malignancy Confined to bed (> 72 hours) Immobilizing plaster cast Central venous access Age >= 75 History of VTE Family history of VTE Factor V Leiden Prothrombin [id number] Lupus anticoagulant Anticardiolipin antibodies Elevated serum homocysteine Heparin-induced thrombocytopenia Other congenital or acquired thrombophilia Stroke (< 1 month) Elective arthroplasty Hip, pelvis, or leg fracture Acute spinal cord injury (< 1 month) Prophylaxis Regimen Total Risk Factor Score Risk Level Prophylaxis Regimen 0-1 Low Early ambulation 2 Moderate Order ONE of the following: *Sequential Compression Device (SCD) *Heparin 5000 units SQ BID 3-4 Higher Order ONE of the following medications: *Heparin 5000 units SQ TID *Enoxaparin/Lovenox 40 mg SQ daily (WT < 150 kg, CrCl > 30 mL/min) *Enoxaparin/Lovenox 30 mg SQ daily (WT < 150 kg, CrCl > 10-29 mL/min) *Enoxaparin/Lovenox 30 mg SQ BID (WT < 150 kg, CrCl > 30 mL/min) AND/OR *Sequential Compression Device (SCD) 5 or more Highest Order ONE of the following medications: *Heparin 5000 units SQ TID (Preferred with Epidurals) *Enoxaparin/Lovenox 40 mg SQ daily (WT < 150 kg, CrCl > 30 mL/min) *Enoxaparin/Lovenox 30 mg SQ daily (WT < 150 kg, CrCl > 10-29 mL/min) *Enoxaparin/Lovenox 30 mg SQ BID (WT < 150 kg, CrCl > 30 mL/min) AND *Sequential Compression Device (SCD) Adeline reyes and SCD's for DVT prophylaxis The exam, history, and the medical decision-making described in the above note were completed with the assistance of the mid-level provider. I reviewed and agree with the findings presented. I attest that I had a [id number] encounter with the patient on the same day, and personally performed and documented my assessment and findings in the medical record. (Dell Lobo MD) Patito Benavides Aug 28, 2017 14:13 Dell Lobo MD Aug 29, 2017 13:48
[2017-08-28] MEDS: ENOXAPARIN SODIUM 40 MG/0.4 ML SYRINGE SQ SCH (15:22)
[2017-08-28] MEDS: LABETALOL HCL 100 MG/20 ML VIAL IV PUSH PRN (21:04)
[2017-08-29] VITALS (13 sets, daily range): BP systolic 119–135; BP diastolic 82–97; PULSE 95–119; RESP 14–25; TEMP 98.1–98.7; O2SAT 93–97
[2017-08-29] MEDS: QUEtiapine FUMARATE 25 MG TAB PO SCH ×4 (00:05→21:04)
[2017-08-29] MEDS: HALOPERIDOL LACTATE 5 MG/ML AMP IV PRN ×2 (00:49→11:49)
[2017-08-29] MEDS: SODIUM CHLORIDE 0.9% FLUSH 10 ML FLUSH IV FLUSH PRN (00:50)
[2017-08-29] MEDS: CHLORHEXIDINE GLUCONATE 2 % 1 PACK (2 CLOTHS) TOP SCH ×2 (04:00→21:04)
[2017-08-29] MEDS: RESP: ALBUTEROL 2.5 MG/IPRATROPIUM 0.5 MG NEB (SCH) NEB ×2 (04:00→08:49)
[2017-08-29] MEDS: cloNIDine HCL 0.1 MG TAB PO SCH ×3 (05:21→21:03)
--- NOTE | 2017-08-29 08:05 | HHI.PR ---
Neuropsych Emotional Emotional: UnabletoAssess: Emotional, Anxious/Fearful, Depressed/Sad, Hostile/ Resentful, Irritable/Angry/Frustrate, Labile, Constricted/Blunted Behavior Behavior: Moderate: Impulsive/Agitated, Unable to Asses: Behavior, Coping/ Acceptance, Cooperative w/ Treatment, Motivation, Frustration Tolerance/[place], Suicidal/Homicidal Risk Cognitive Cognitive: Unable to Asses: Cognitive, Attention/Concentration, Confused/ Orientation, Insight/Awareness, Judgement/Problem-Solving, Memory Psychosocial Psychosocial: Unable to Asses: Psychosocial, Family/Other Adjustment, Realistic Expectation, Self-Esteem/Confidence Progress Notes/Response to Tx Contents of Sessions: Adjustment, Level of Consciousness Time with Patient: 15 minutes Premorbid psychological status Premorbid Cognitive, Emotional and Behavioral Status: Tenuous. The patient has high school years of education and a solid work history prior to this injury. The patient has questionable psychiatric difficulties, as described above. Substance abuse history is significant. Behavioral Reactions of Patient and Family/Support System: Stable. The patients family is experiencing ongoing issues of adjustment given the nature of the injury, and this aspect of recovery will require ongoing monitoring. Emotional/Behavioral Status of Patient and Family/Support System: Stable. Pertinent issues, if appropriate to this patients clinical care, are described in detail above. Maximizing acute care outcome It is recommended that the patient be monitored for emergent behavioral impulsivity as the medical condition evolves. This patients neuropathological challenges may limit his rehabilitation potential going forward, and these challenges will require specialized therapeutic skills to maximize outcome. Additionally, the patients family is experiencing ongoing issues of adjustment given the traumatic nature of the injury, and they may benefit from ongoing psychological assistance. At this point in the recovery process, the patient does not have cognitive capacity as the patient is unable to understand a situation and its likely consequences, nor is he able to manipulate information rationally. Cognitive capacity will be assessed throughout the recovery process. I ordered the Agitated Behavior Scale to monitor his present level of agitation and from which we can monitor the effectiveness of any intervention. His ABS presently is 29 (38.5, 21, 18.6) which falls solidly within the moderate to severely agitated range. This intervention will be conducted each nursing shift. I discussed suggestions for pharmacological management with [place] pilot. Anticipated Problems Ongoing areas of concern will include behavioral impulsivity, lack of insight and judgment, which is expected to improve with time and treatment. Presently , the patient quite agitated. Given the severity of the patient's injuries it is my clinical opinion that this patient will be unable to return to any type of productive employment for at least one year, perhaps longer and likely never. This patient is not considered safe to discharge home without supervision. Treatment Plan This clinician will continue to follow with you throughout the course of this patients critical care treatment, and I will be available to meet with the patients family/support system to facilitate their understanding and the ongoing care of their family member. The goals of neuropsychological intervention shall be both educational and supportive to the family/support system as is deemed clinically appropriate. 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 Diagnosis: (1) Major neurocognitive disorder as late effect of traumatic brain injury with behavioral disturbance Status: Acute (2) Alcohol dependence in controlled environment Status: Acute (3) Alcohol withdrawal delirium Progress Note Narrative Ongoing follow-up of patient seen bedside. This is day 4 of his admission and 16 days since injury. He remains less agitated clinically with recent ABS = 29 (38.5, 21, 18.6) which is moderate in severity. However, clinically he appears much improved, and was conversant with me from his hospital bed. He remains on Seroquel 50 q8H. Depakote 500 BID and Haldol PRN (received this morning at 0049) . It is suggested that his Seroquel be increased to 75 at 0800 and 1400, 100 HS , unless medically contraindicated. He is now 16 days abstinent, and much of his withdrawal behaviors should be diminishing, and now what is seen is the neurobehavioral effects of his frontal lobe pathology. He is [place] IV, emerging V. I will follow. Matt Oliveros PhD Aug 29, 2017 8:05 am
[2017-08-29] MEDS: SODIUM CHLORIDE 0.9% FLUSH 10 ML FLUSH IV FLUSH SCH ×2 (08:43→21:02)
[2017-08-29] MEDS: DIVALPROEX DR 500 MG TABEC PO SCH ×2 (09:12→21:02)
[2017-08-29] MEDS: chlordiazePOXIDE 25 MG CAP PO SCH ×2 (09:12→21:03)
[2017-08-29] MEDS: FAMOTIDINE 20 MG TAB PO SCH ×2 (09:12→21:00)
[2017-08-29] MEDS: DOCUSATE SODIUM 50 MG/SENNA 8.6 MG TAB PO SCH ×2 (09:13→21:00)
--- NOTE | 2017-08-29 10:19 | HHI.PR ---
Subjective Remarks in no acute distress. awake and alert but still confused. still on restraints. no fever. family at the bedside. Objective Vitals Vital Signs Date Time Temp Pulse Resp B/P (MAP) Pulse Ox O2 Delivery O2 Flow Rate FiO2 08/29/17 08:49 97 21 08/29/17 07:00 Room Air 08/29/17 06:00 114 08/29/17 04:00 98.3 95 14 119/85 (96) 94 08/29/17 04:00 108 08/29/17 02:00 114 08/29/17 00:00 110 08/29/17 00:00 98.4 110 17 123/97 (106) 94 08/28/17 22:00 102 08/28/17 20:19 93 2.00 08/28/17 20:00 108 08/28/17 20:00 97.7 108 13 136/91 (106) 94 08/28/17 19:00 94 Room Air 08/28/17 18:00 107 08/28/17 16:00 97.7 105 12 122/85 (97) 92 08/28/17 16:00 105 08/28/17 14:00 102 08/28/17 12:00 107 08/28/17 12:00 98.2 107 19 145/82 (103) 94 I/O 08/28/17 08/28/17 08/28/17 08/29/17 08/29/17 08/29/17 07:00 15:00 23:00 07:00 15:00 23:00 Intake Total 480 ml 880 ml 480 ml Balance 480 ml 880 ml 480 ml Intake Oral 480 ml 880 ml 480 ml # Voids 4 5 4 # Bowel Movements 0 0 0 Result Diagram: 08/26/17 0544 08/26/17 0544 Imaging Last Impressions Head CT 08/26/17 0000 Signed Impressions: Service Date/Time: Saturday, August 26, 2017 08:05 - CONCLUSION: Skull fracture on the right focal bone within the encephalomalacic changes both orbitofrontal regions. Small 9 mm right subdural hygroma I have no prior studies for comparison. Due to the exists? Flaco Razo MD FACR Chest X-Ray 08/25/17 0000 Signed Impressions: Service Date/Time: Friday, August 25, 2017 19:34 - CONCLUSION: 1. Basilar airspace disease, right greater the left. Differential diagnosis includes pneumonia and atelectasis/aspiration. Virgilio Wilhelm MD Objective Remarks GENERAL: This is a well-nourished, well-developed patient, in no apparent distress. CARDIOVASCULAR: Regular rate and regular rhythm without murmurs, gallops, or rubs. RESPIRATORY: Clear to auscultation. Breath sounds equal bilaterally. No wheezes , rales, or rhonchi. GASTROINTESTINAL: Abdomen soft, non-tender, nondistended. Normal, active bowel sounds MUSCULOSKELETAL: Extremities without clubbing, cyanosis, or edema. NEURO: lethargic but easily arousable. Medications and IVs Inpatient Medications Acetaminophen (Tylenol) 650 mg Q6H PRN PO PAIN 1-3 OR FEVER >101; Start at 19:30 Albuterol Sulfate (Albuterol Neb) 2.5 mg Q2HR NEB PRN NEB WHEEZING; Start at 08:45 Albuterol/ Ipratropium (Duoneb Neb) 1 ampule Q6HR NEB NEB Last administered on 08/29/17at 08:49; Start 08/26/17 at 10:00 Bisacodyl (Dulcolax Supp) 10 mg DAILY PRN RECTAL SEVERE CONSITIPATION; Start at 19:30 Chlordiazepoxide (Librium) 25 mg BID PO Last administered on 08/29/17at 09:12; Start 08/26/17 at 16:30 Chlorhexidine Gluconate (Chlorhexidine 2% Cloth) 3 pack UNSCH PRN TOP HYGIENIC CARE; Start 08/25/17 at 19:30 Clonidine (Catapres) 0.1 mg Q8HR PO Last administered on 08/29/17 05:21; Start 08/26/17 at 14:00 Dexmedetomidine HCl 1000 mcg/ Sodium Chloride 250 ml @ 4.87 mls/hr TITRATE PRN IV SEDATION Last administered on 08/26/17at 00:17; Start 08/25/17 at 23:59; Stop 08/26/17 at 11:17; Status DC Dexmedetomidine HCl 200 mcg/ Sodium Chloride 52 ml @ 5.06 mls/hr TITRATE PRN IV SEDATION Last administered on 08/25/17at 21:52; Start 08/25/17 at 18:45; Stop at 23:48; Status DC Divalproex Sodium (Depakote Dr) 500 mg BID PO Last administered on 08/29/17 09: 12; Start 08/26/17 at 09:00 Enoxaparin Sodium (Lovenox Inj) 40 mg Q24H SQ Last administered on 08/28/17 15: 22; Start 08/26/17 at 12:00 Famotidine (Pepcid Inj) 20 mg Q12HR IV PUSH Last administered on 08/25/17 20:09 ; Start 08/25/17 at 21:00; Stop 08/26/17 at 11:17; Status DC Famotidine (Pepcid) 20 mg Q12HR PO Last administered on 08/29/17 09:12; Start 08/25/17 at 21:00 Haloperidol Lactate (Haldol Inj) 4 mg Q4H PRN IV agitation Last administered on 08/29/17 00:49; Start 08/26/17 at 11:30 Labetalol HCl (Trandate Inj) 10 mg Q1HR PRN IV PUSH SBP>150, DBP>90, HR>65 Last administered on 08/28/17 21:04; Start 08/26/17 at 20:00 Lactulose (Lactulose Liq) 30 ml DAILY PRN PO SEVERE CONSITIPATION; Start at 19:30 Lorazepam (Ativan Inj) 2 mg Q4H PRN IV PUSH agitation Last administered on 22:19; Start 08/26/17 at 16:30 Magnesium Hydroxide (Milk Of Magnesia Liq) 30 ml DAILY PRN PO MILD CONSTIPATION Last administered on 08/29/17 00:56; Start 08/28/17 at 12:15 Miscellaneous Information 1 Q361D XX Last administered on 08/25/17 19:30; Start 08/25/17 at 19:30 Nicardipine HCl 25 mg/Sodium Chloride 250 ml @ 50 mls/hr TITRATE PRN IV Blood pressure management Last administered on 08/26/17 22:59; Start 08/26/17 at 20:00 Ondansetron HCl (Zofran Inj) 4 mg Q6H PRN IV PUSH NAUSEA OR VOMITING Last administered on 08/27/17 09:14; Start 08/25/17 at 19:30 Quetiapine Fumarate (SEROquel) 50 mg Q8H PO Last administered on 08/29/17 09:13 ; Start 08/26/17 at 17:00 Senna/Docusate Sodium (Elena-Colace) 1 tab BID PO Last administered on 08/29/17 09:13; Start 08/25/17 at 21:00 Sennosides (Senokot) 17.2 mg Q12H PRN PO Moderate constipation; Start 08/25/17 at 19:30 Sodium Chloride (NS Flush) 2 ml BID IV FLUSH Last administered on 08/29/17 08: 43; Start 08/25/17 at 21:00 A/P Assessment and Plan A/P TBI Nondisplaced frontal bone fracture Left frontal subdural hematoma Left frontal subarachnoid hemorrhage Punctate frontal lobe hemorrhagic contusions Agitated delirium Alcohol dependence CT 08/26 Skull fracture on the right, encephalomalacia both orbitofrontal regions. Small 9 mm right subdural hygroma. Dr. Lobo consulted CT Scans were performed at outside hospital 08/14, 08/15, 08/16. CT brain 08/14 - linear nondisplaced frontal bone fracture. Punctate hemorrhagic contusions Inferior frontal lobes. Subdural blood along tentorium and small left frontal subdural hematoma 12 x 4 mm. Bilateral frontal subarachnoid hemorrhage Follow-up CT 08/15 was stable. Follow-up CT 08/16 Stable hemorrhagic contusions and subarachnoid hemorrhage. Subdural blood along the left frontal lobe was no longer apparent. EEG with no focal or diffuse abnormality. Suspect ongoing impulsivity largely related to frontal lobe involvement, though prior hospital course has been complicated by DTs. Continue Seroquel . on clonidine 0.1 mg every 8 hours. Use Ativan as needed. Continue Depakote Thiamine/folic acid/MVI daily. PT/OT/speech therapy for cognitive, swallow evaluation COPD Suspected obstructive sleep apnea Tobacco abuse Was on BiPAP at OSH for suspected sleep apnea, will continue Continue nicotine patch continue neb treatment. Hypertension Monitor hemodynamics Obesity Hepatic steatosis Cleared by speech, start regular diet Thrombocytosis, reactive Monitor CBC DVT prophylaxis with subq Lovenox ( ok with neurosurgery). for transfer to floor. Discharge Planning dc planning; rehab when off restraints. Rachel Leblanc MD Aug 29, 2017 10:19
[2017-08-29] MEDS: FOLIC ACID 1 MG TAB PO SCH (11:47)
[2017-08-29] MEDS: ENOXAPARIN SODIUM 40 MG/0.4 ML SYRINGE SQ SCH (11:47)
[2017-08-29] MEDS: THIAMINE HCL 100 MG TAB PO SCH ×2 (11:48→11:49)
[2017-08-29] MEDS: MULTIVITAMIN TAB PO SCH (11:50)
[2017-08-29] MEDS: LORazepam 2 MG/ML VIAL IV PUSH PRN ×2 (12:33→15:54)
--- NOTE | 2017-08-29 12:53 | HHI.NSPN ---
(Patito Benavides) Note Status Status: Progress Note (Patito Benavides) Interval History Interval History Mr. Flores is a 46 year old male who presents as a transfer from [place], [place]. Patient cannot provide history this history obtained from patient's medical record. On 08/14/17 he had a witnessed fall while intoxicated, forward striking his head. There was no reported seizure activity. He sustained a nondisplaced frontal bone fracture, bilateral frontal hemorrhagic contusions, left frontal subdural hematoma (124 mm). He was admitted to the trauma surgery service at the outside hospital with Neurosurgical evaluation and was managed nonoperatively. He had underwent subsequent follow-up CT scans 08/15 and 08/16 which were stable and showing resolution of subdural hematoma. He was also being treated for delirium tremens with Librium, thiamine, folic acid. He has been on Seroquel 50 mg by mouth twice a day and Precedex drip for impulsivity. He was on Keppra for seizure prophylaxis. Another repeat CT brain 08/24 showed reduction of frontal hemorrhages with increase in edema, particularly in left frontal lobe. Bilateral subdural hygromas present and family has requested transfer for second opinion, as well as family members being local here in [facility]. A CT Brain has been completed here at [facility]. He is Currently undergoing EEG study. 08/28: confused, following simple commands. reported to have ambulated with PT this am. 08/29: no changes to neuro checks, awake, alert, smiling and waving hello. (Patito Benavides) Labs, Micro, & Vital Signs Results Date Time Temp Pulse Resp B/P (MAP) Pulse Ox O2 Delivery O2 Flow Rate FiO2 08/29/17 10:00 100 08/29/17 08:49 97 21 08/29/17 08:00 98.4 100 14 122/90 (101) 95 08/29/17 08:00 100 08/29/17 07:00 Room Air 08/29/17 06:00 114 08/29/17 04:00 98.3 95 14 119/85 (96) 94 08/29/17 04:00 108 08/29/17 02:00 114 08/29/17 00:00 110 08/29/17 00:00 98.4 110 17 123/97 (106) 94 08/28/17 22:00 102 08/28/17 20:19 93 2.00 08/28/17 20:00 108 08/28/17 20:00 97.7 108 13 136/91 (106) 94 08/28/17 19:00 94 Room Air 08/28/17 18:00 107 08/28/17 16:00 97.7 105 12 122/85 (97) 92 08/28/17 16:00 105 08/28/17 14:00 102 Constitutional Vital Signs Date Time Temp Pulse Resp B/P (MAP) Pulse Ox O2 Delivery O2 Flow Rate FiO2 08/29/17 10:00 100 08/29/17 08:49 97 21 08/29/17 08:00 98.4 100 14 122/90 (101) 95 08/29/17 08:00 100 08/29/17 07:00 Room Air 08/29/17 06:00 114 08/29/17 04:00 98.3 95 14 119/85 (96) 94 08/29/17 04:00 108 08/29/17 02:00 114 08/29/17 00:00 110 08/29/17 00:00 98.4 110 17 123/97 (106) 94 08/28/17 22:00 102 08/28/17 20:19 93 2.00 08/28/17 20:00 108 08/28/17 20:00 97.7 108 13 136/91 (106) 94 08/28/17 19:00 94 Room Air 08/28/17 18:00 107 08/28/17 16:00 97.7 105 12 122/85 (97) 92 08/28/17 16:00 105 08/28/17 14:00 102 (Patito Benavides) Review of Systems ROS Limitations: Clinical Condition, Speech Impaired, Poor Historian (Patito Benavdies) Physical Exam GEN: Mr. Flores is resting comfortably, no acute distress, smiling and waving hello. HEENT: normocephalic, nonicteric sclera Neuro: alert, oriented to self only. Cranial nerve examination: pupils equal, round, and reactive to light. Facial motor function appears normal and symmetrical. Neck is soft and supple. Musculoskeletal: no obvious deformities, moves all four extremities Cerebellar examination is limited Heart: regular rate, rhythm Respiratory: clear Skin: warm, dry (Patito Benavides) GEN: Mr. Flores is resting comfortably, no acute distress, smiling and waving hello. HEENT: normocephalic, nonicteric sclera Neuro: alert, oriented to self only. Cranial nerve examination: pupils equal, round, and reactive to light. Facial motor function appears normal and symmetrical. Neck is soft and supple. Musculoskeletal: no obvious deformities, moves all four extremities Cerebellar examination is limited Heart: regular rate, rhythm Respiratory: clear Skin: warm, dry (Dell Lobo MD) Medications Current Medications Current Medications Medications (Trade) Dose Ordered Sig/Alfa Route PRN Reason Start Time Stop Time Status Last Admin Dose Admin Sodium Chloride (NS Flush) 2 ml UNSCH PRN IV FLUSH FLUSH AFTER USING IV ACCESS 08/25/17 19:30 08/29/17 00:50 Sodium Chloride (NS Flush) 2 ml BID IV FLUSH 08/25/17 21:00 08/29/17 08:43 Acetaminophen (Tylenol) 650 mg Q6H PRN PO PAIN 1-3 OR FEVER >101 08/25/17 19:30 Famotidine (Pepcid) 20 mg Q12HR PO 08/25/17 21:00 08/29/17 09:12 Ondansetron HCl (Zofran Inj) 4 mg Q6H PRN IV PUSH NAUSEA OR VOMITING 08/25/17 19:30 08/27/17 09:14 Miscellaneous Information 1 Q361D XX 08/25/17 19:30 08/25/17 19:30 Chlorhexidine Gluconate (Chlorhexidine 2% Cloth) 3 pack Taper DAILY@04 TOP 08/26/17 04:00 08/22/18 03:59 08/26/17 04:00 Chlorhexidine Gluconate (Chlorhexidine 2% Cloth) 3 pack UNSCH PRN TOP HYGIENIC CARE 08/25/17 19:30 Senna/Docusate Sodium (Elena-Colace) 1 tab BID PO 08/25/17 21:00 08/29/17 09:13 Magnesium Hydroxide (Milk Of Magnesia Liq) 30 ml Q12H PRN PO Mild constipation 08/25/17 19:30 Sennosides (Senokot) 17.2 mg Q12H PRN PO Moderate constipation 08/25/17 19:30 Bisacodyl (Dulcolax Supp) 10 mg DAILY PRN RECTAL SEVERE CONSITIPATION 08/25/17 19:30 Lactulose (Lactulose Liq) 30 ml DAILY PRN PO SEVERE CONSITIPATION 08/25/17 19:30 Divalproex Sodium (Depakote Dr) 500 mg BID PO 08/26/17 09:00 08/29/17 09:12 Albuterol Sulfate (Albuterol Neb) 2.5 mg Q2HR NEB PRN NEB WHEEZING 08/26/17 08:45 Quetiapine Fumarate (SEROquel) 50 mg Q8H PO 08/26/17 17:00 08/29/17 09:13 Haloperidol Lactate (Haldol Inj) 4 mg Q4H PRN IV agitation 08/26/17 11:30 08/29/17 11:49 Clonidine (Catapres) 0.1 mg Q8HR PO 08/26/17 14:00 08/29/17 05:21 Enoxaparin Sodium (Lovenox Inj) 40 mg Q24H SQ 08/26/17 12:00 08/29/17 11:47 Lorazepam (Ativan Inj) 2 mg Q4H PRN IV PUSH agitation 08/26/17 16:30 08/29/17 12:33 Chlordiazepoxide (Librium) 25 mg BID PO 08/26/17 16:30 08/29/17 09:12 Labetalol HCl (Trandate Inj) 10 mg Q1HR PRN IV PUSH SBP>150, DBP>90, HR>65 08/26/17 20:00 08/28/17 21:04 Nicardipine HCl 25 mg/Sodium Chloride 250 ml @ 50 mls/hr TITRATE PRN IV Blood pressure management 08/26/17 20:00 08/26/17 22:59 Magnesium Hydroxide (Milk Of Magnesia Liq) 30 ml DAILY PRN PO MILD CONSTIPATION 08/28/17 12:15 08/29/17 00:56 Thiamine HCl (Vitamin B1) 100 mg DAILY PO 08/29/17 10:30 08/29/17 11:49 Multivitamins (Theragran) 1 tab DAILY PO 08/29/17 10:30 08/29/17 11:50 Folic Acid (Folate) 1 mg DAILY PO 08/29/17 10:30 08/29/17 11:47 (Patito Benavides) Medical Decision Making MDM Remarks 46 year old male with traumatic brain injury Head CT 08/26/17 Skull fracture on the right focal bone within the encephalomalacic changes both orbitofrontal regions. Small 9 mm right subdural hygroma (Patito Benavides) Plan Plan Remarks nonoperative management cont therapy and rehab ok for lovenox for dvt prophylaxis ok to transfer out of unit or dc to rehab from [facility] standpoint (Patito Benavides) Attending Statement As per Ms Benavides Continue neuro checks in a serial fashion. Continue non operative management of traumatic head injury EEG will be reviewed Pulmonary. Continue aggressive pulmonary toilette, nasotracheal suction, and breathing treatments with nebulizers. Daily PT and OT Nutrition. Tolerating Oral diet Renal. Continue to monitor closely urine output, BUN and creatinine Endocrine. Continue to Monitor serial Acu checks and SSI as needed in detail ID continue to monitor for signs of infection Continue Protonix for stress ulcer prophylaxis Caprini VTE Risk Assessment Caprini VTE Risk Assessment Caprini Risk Assessment Model Point Value = 1 Point Value = 2 Point Value = 3 Point Value = 5 Age 41-60 Minor surgery BMI > 25 kg/m2 Swollen legs Varicose veins or History of unexplained or recurrent spontaneous Oral contraceptives or hormone replacement Sepsis (< 1 month) Serious lung disease, including pneumonia (< 1 month) Abnormal pulmonary function Acute myocardial infarction Congestive heart failure (< 1 month) History of inflammatory bowel disease Medical patient at bed rest Age 61-74 Arthroscopic surgery Major open surgery (> 45 min) Laparoscopic surgery (> 45 min) Malignancy Confined to bed (> 72 hours) Immobilizing plaster cast Central venous access Age >= 75 History of VTE Family history of VTE Factor V Leiden Prothrombin [id number] Lupus anticoagulant Anticardiolipin antibodies Elevated serum homocysteine Heparin-induced thrombocytopenia Other congenital or acquired thrombophilia Stroke (< 1 month) Elective arthroplasty Hip, pelvis, or leg fracture Acute spinal cord injury (< 1 month) Prophylaxis Regimen Total Risk Factor Score Risk Level Prophylaxis Regimen 0-1 Low Early ambulation 2 Moderate Order ONE of the following: *Sequential Compression Device (SCD) *Heparin 5000 units SQ BID 3-4 Higher Order ONE of the following medications: *Heparin 5000 units SQ TID *Enoxaparin/Lovenox 40 mg SQ daily (WT < 150 kg, CrCl > 30 mL/min) *Enoxaparin/Lovenox 30 mg SQ daily (WT < 150 kg, CrCl > 10-29 mL/min) *Enoxaparin/Lovenox 30 mg SQ BID (WT < 150 kg, CrCl > 30 mL/min) AND/OR *Sequential Compression Device (SCD) 5 or more Highest Order ONE of the following medications: *Heparin 5000 units SQ TID (Preferred with Epidurals) *Enoxaparin/Lovenox 40 mg SQ daily (WT < 150 kg, CrCl > 30 mL/min) *Enoxaparin/Lovenox 30 mg SQ daily (WT < 150 kg, CrCl > 10-29 mL/min) *Enoxaparin/Lovenox 30 mg SQ BID (WT < 150 kg, CrCl > 30 mL/min) AND *Sequential Compression Device (SCD) Continue Cosmo reyes and SCD's for DVT prophylaxis The exam, history, and the medical decision-making described in the above note were completed with the assistance of the mid-level provider. I reviewed and agree with the findings presented. I attest that I had a [id number] encounter with the patient on the same day, and personally performed and documented my assessment and findings in the medical record. (Dell Lobo MD) Patito Benavides Aug 29, 2017 12:53 Dell Lobo MD Aug 29, 2017 13:49
[2017-08-30] VITALS (8 sets, daily range): BP systolic 126–162; BP diastolic 78–95; PULSE 104–122; RESP 15–32; TEMP 97.8–98.7; O2SAT 94–99
[2017-08-30] MEDS: LORazepam 2 MG/ML VIAL IV PUSH PRN (04:36)
[2017-08-30] MEDS: cloNIDine HCL 0.1 MG TAB PO SCH ×3 (05:13→22:23)
[2017-08-30] MEDS: SODIUM CHLORIDE 0.9% FLUSH 10 ML FLUSH IV FLUSH SCH ×2 (09:00→21:10)
[2017-08-30] MEDS: QUEtiapine FUMARATE 25 MG TAB PO SCH ×2 (09:01→17:00)
[2017-08-30] MEDS: FAMOTIDINE 20 MG TAB PO SCH ×2 (09:01→21:09)
[2017-08-30] MEDS: DIVALPROEX DR 500 MG TABEC PO SCH ×2 (09:01→21:09)
[2017-08-30] MEDS: DOCUSATE SODIUM 50 MG/SENNA 8.6 MG TAB PO SCH ×2 (09:02→21:09)
[2017-08-30] MEDS: FOLIC ACID 1 MG TAB PO SCH (09:02)
[2017-08-30] MEDS: MULTIVITAMIN TAB PO SCH (09:02)
[2017-08-30] MEDS: chlordiazePOXIDE 25 MG CAP PO SCH (09:02)
--- NOTE | 2017-08-30 10:32 | HHI.PR ---
Neuropsych Behavior Behavior: Unable to Asses: Behavior, Coping/Acceptance, Cooperative w/ Treatment, Motivation, Frustration Tolerance/[place], Impulsive/Agitated, Suicidal/ Homicidal Risk Cognitive Cognitive: Moderate: Cognitive, Attention/Concentration, Confused/Orientation, Insight/Awareness, Judgement/Problem-Solving, Memory Psychosocial Psychosocial: Intact: Psychosocial, Family/Other Adjustment, Realistic Expectation, Unable to Asses: Self-Esteem/Confidence Progress Notes/Response to Tx Contents of Sessions: Adjustment, Level of Consciousness Time with Patient: 15 minutes Premorbid psychological status Premorbid Cognitive, Emotional and Behavioral Status: Tenuous. The patient has high school years of education and a solid work history prior to this injury. The patient has questionable psychiatric difficulties, as described above. Substance abuse history is significant. Behavioral Reactions of Patient and Family/Support System: Stable. The patients family is experiencing ongoing issues of adjustment given the nature of the injury, and this aspect of recovery will require ongoing monitoring. Emotional/Behavioral Status of Patient and Family/Support System: Stable. Pertinent issues, if appropriate to this patients clinical care, are described in detail above. Maximizing acute care outcome It is recommended that the patient be monitored for emergent behavioral impulsivity as the medical condition evolves. This patients neuropathological challenges may limit his rehabilitation potential going forward, and these challenges will require specialized therapeutic skills to maximize outcome. Additionally, the patients family is experiencing ongoing issues of adjustment given the traumatic nature of the injury, and they may benefit from ongoing psychological assistance. At this point in the recovery process, the patient does not have cognitive capacity as the patient is unable to understand a situation and its likely consequences, nor is he able to manipulate information rationally. Cognitive capacity will be assessed throughout the recovery process. I ordered the Agitated Behavior Scale to monitor his present level of agitation and from which we can monitor the effectiveness of any intervention. His ABS presently is 29 (38.5, 21, 18.6) which falls solidly within the moderate to severely agitated range. This intervention will be conducted each nursing shift. I discussed suggestions for pharmacological management with bar porter. Anticipated Problems Ongoing areas of concern will include behavioral impulsivity, lack of insight and judgment, which is expected to improve with time and treatment. Presently , the patient quite agitated. Given the severity of the patient's injuries it is my clinical opinion that this patient will be unable to return to any type of productive employment for at least one year, perhaps longer and likely never. This patient is not considered safe to discharge home without supervision. Treatment Plan This clinician will continue to follow with you throughout the course of this patients critical care treatment, and I will be available to meet with the patients family/support system to facilitate their understanding and the ongoing care of their family member. The goals of neuropsychological intervention shall be both educational and supportive to the family/support system as is deemed clinically appropriate. 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 Diagnosis: (1) Major neurocognitive disorder as late effect of traumatic brain injury with behavioral disturbance Status: Acute (2) Alcohol dependence in controlled environment Status: Acute (3) Alcohol withdrawal delirium Progress Note Narrative PTD 5. The patient was in a chair, and was conversant. Nursing reported that he remains impulsive but manageable. The ABS has not been completed since 08/28, for reasons unknown. This was reordered by this provider today. His current regimen appears generally effective, unless medically contraindicated. He is [place] I will follow. Matt Oliveros PhD Aug 30, 2017 10:32 am
--- NOTE | 2017-08-30 10:45 | HHI.PR ---
Subjective Remarks mildly lethargic but easily arousable. still confused and on restraints. no fever. Objective Vitals Vital Signs Date Time Temp Pulse Resp B/P (MAP) Pulse Ox O2 Delivery O2 Flow Rate FiO2 08/30/17 04:00 98.7 119 32 140/82 (101) 94 08/30/17 00:00 98.4 107 18 147/95 (112) 95 08/29/17 21:01 95 21 08/29/17 20:00 98.7 96 25 135/82 (99) 94 08/29/17 19:15 96 08/29/17 19:00 96 Room Air 08/29/17 16:00 98.1 103 17 126/91 (103) 94 08/29/17 14:00 119 08/29/17 12:00 104 08/29/17 12:00 98.3 104 17 131/95 (107) 93 I/O 08/29/17 08/29/17 08/29/17 08/30/17 08/30/17 08/30/17 06:59 14:59 22:59 06:59 14:59 22:59 Intake Total 480 ml 100 ml 240 ml Output Total 0 ml Balance 480 ml 100 ml 240 ml Intake Oral 480 ml 100 ml 240 ml Output Stool Total 0 ml # Voids 4 3 3 # Bowel Movements 0 0 Result Diagram: 08/26/17 0544 08/26/17 0544 Imaging Last Impressions Head CT 08/26/17 0000 Signed Impressions: Service Date/Time: Saturday, August 26, 2017 08:05 - CONCLUSION: Skull fracture on the right focal bone within the encephalomalacic changes both orbitofrontal regions. Small 9 mm right subdural hygroma I have no prior studies for comparison. Due to the exists? Flaco Razo MD FACR Chest X-Ray 08/25/17 0000 Signed Impressions: Service Date/Time: Friday, August 25, 2017 19:34 - CONCLUSION: 1. Basilar airspace disease, right greater the left. Differential diagnosis includes pneumonia and atelectasis/aspiration. Virgilio Wilhelm MD Objective Remarks GENERAL: This is a well-nourished, well-developed patient, in no apparent distress. CARDIOVASCULAR: Regular rate and regular rhythm without murmurs, gallops, or rubs. RESPIRATORY: Clear to auscultation. Breath sounds equal bilaterally. No wheezes , rales, or rhonchi. GASTROINTESTINAL: Abdomen soft, non-tender, nondistended. Normal, active bowel sounds MUSCULOSKELETAL: Extremities without clubbing, cyanosis, or edema. NEURO: lethargic but easily arousable. Medications and IVs Inpatient Medications Acetaminophen (Tylenol) 650 mg Q6H PRN PO PAIN 1-3 OR FEVER >101; Start at 19:30 Albuterol Sulfate (Albuterol Neb) 2.5 mg Q2HR NEB PRN NEB WHEEZING; Start at 08:45 Albuterol/ Ipratropium (Duoneb Neb) 1 ampule Q6HR NEB NEB Last administered on 08/29/17at 08:49; Start 08/26/17 at 10:00; Stop 08/29/17 at 10:21; Status DC Bisacodyl (Dulcolax Supp) 10 mg DAILY PRN RECTAL SEVERE CONSITIPATION; Start at 19:30 Chlordiazepoxide (Librium) 25 mg BID PO Last administered on 08/30/17at 09:02; Start 08/26/17 at 16:30 Chlorhexidine Gluconate (Chlorhexidine 2% Cloth) 3 pack UNSCH PRN TOP HYGIENIC CARE; Start 08/25/17 at 19:30 Clonidine (Catapres) 0.1 mg Q8HR PO Last administered on 08/30/17at 05:13; Start 08/26/17 at 14:00 Dexmedetomidine HCl 1000 mcg/ Sodium Chloride 250 ml @ 4.87 mls/hr TITRATE PRN IV SEDATION Last administered on 08/26/17at 00:17; Start 08/25/17 at 23:59; Stop 08/26/17 at 11:17; Status DC Dexmedetomidine HCl 200 mcg/ Sodium Chloride 52 ml @ 5.06 mls/hr TITRATE PRN IV SEDATION Last administered on 08/25/17at 21:52; Start 08/25/17 at 18:45; Stop at 23:48; Status DC Divalproex Sodium (Depakote Dr) 500 mg BID PO Last administered on 08/30/17at 09: 01; Start 08/26/17 at 09:00 Enoxaparin Sodium (Lovenox Inj) 40 mg Q24H SQ Last administered on 08/29/17 11: 47; Start 08/26/17 at 12:00 Famotidine (Pepcid Inj) 20 mg Q12HR IV PUSH Last administered on 08/25/17 20:09 ; Start 08/25/17 at 21:00; Stop 08/26/17 at 11:17; Status DC Famotidine (Pepcid) 20 mg Q12HR PO Last administered on 08/30/17 09:01; Start 08/25/17 at 21:00 Folic Acid (Folate) 1 mg DAILY PO Last administered on 08/30/17 09:02; Start at 10:30 Haloperidol Lactate (Haldol Inj) 4 mg Q4H PRN IV agitation Last administered on 08/29/17 11:49; Start 08/26/17 at 11:30 Labetalol HCl (Trandate Inj) 10 mg Q1HR PRN IV PUSH SBP>150, DBP>90, HR>65 Last administered on 08/28/17 21:04; Start 08/26/17 at 20:00 Lactulose (Lactulose Liq) 30 ml DAILY PRN PO SEVERE CONSITIPATION; Start at 19:30 Lorazepam (Ativan Inj) 2 mg Q4H PRN IV PUSH agitation Last administered on 04:36; Start 08/26/17 at 16:30 Magnesium Hydroxide (Milk Of Magnesia Liq) 30 ml DAILY PRN PO MILD CONSTIPATION Last administered on 08/29/17 00:56; Start 08/28/17 at 12:15 Miscellaneous Information 1 Q361D XX Last administered on 08/25/17 19:30; Start 08/25/17 at 19:30 Multivitamins (Theragran) 1 tab DAILY PO Last administered on 08/30/17 09:02; Start 08/29/17 at 10:30 Nicardipine HCl 25 mg/Sodium Chloride 250 ml @ 50 mls/hr TITRATE PRN IV Blood pressure management Last administered on 08/26/17 22:59; Start 08/26/17 at 20:00 Ondansetron HCl (Zofran Inj) 4 mg Q6H PRN IV PUSH NAUSEA OR VOMITING Last administered on 08/27/17 09:14; Start 08/25/17 at 19:30 Quetiapine Fumarate (SEROquel) 50 mg Q8H PO Last administered on 08/30/17at 09:01 ; Start 08/26/17 at 17:00 Senna/Docusate Sodium (Elena-Colace) 1 tab BID PO Last administered on 08/30/17at 09:02; Start 08/25/17 at 21:00 Sennosides (Senokot) 17.2 mg Q12H PRN PO Moderate constipation; Start 08/25/17 at 19:30 Sodium Chloride (NS Flush) 2 ml BID IV FLUSH Last administered on 08/29/17at 21: 02; Start 08/25/17 at 21:00 Thiamine HCl (Vitamin B1) 100 mg DAILY PO Last administered on 08/29/17at 11:49; Start 08/29/17 at 10:30 A/P Assessment and Plan A/P TBI Nondisplaced frontal bone fracture Left frontal subdural hematoma Left frontal subarachnoid hemorrhage Punctate frontal lobe hemorrhagic contusions Agitated delirium Alcohol dependence CT 08/26 Skull fracture on the right, encephalomalacia both orbitofrontal regions. Small 9 mm right subdural hygroma. Dr. Lobo consulted CT Scans were performed at outside hospital 08/14, 08/15, 08/16. CT brain 08/14 - linear nondisplaced frontal bone fracture. Punctate hemorrhagic contusions Inferior frontal lobes. Subdural blood along tentorium and small left frontal subdural hematoma 12 x 4 mm. Bilateral frontal subarachnoid hemorrhage Follow-up CT 08/15 was stable. Follow-up CT 08/16 Stable hemorrhagic contusions and subarachnoid hemorrhage. Subdural blood along the left frontal lobe was no longer apparent. EEG with no focal or diffuse abnormality. Suspect ongoing impulsivity largely related to frontal lobe involvement, though prior hospital course has been complicated by DTs. Continue Seroquel . start to taper down librium. on clonidine 0.1 mg every 8 hours. Use Ativan as needed. Continue Depakote Thiamine/folic acid/MVI daily. PT/OT/speech therapy for cognitive, swallow evaluation COPD Suspected obstructive sleep apnea Tobacco abuse Was on BiPAP at OSH for suspected sleep apnea, will continue Continue nicotine patch continue neb treatment. Hypertension Monitor hemodynamics Obesity Hepatic steatosis Cleared by speech, start regular diet Thrombocytosis, reactive Monitor CBC DVT prophylaxis with subq Lovenox ( ok with neurosurgery). for transfer to floor. Discharge Planning dc planning; rehab when off restraints. Rachel Leblanc MD Aug 30, 2017 10:45
[2017-08-30] MEDS: ENOXAPARIN SODIUM 40 MG/0.4 ML SYRINGE SQ SCH (12:00)
--- NOTE | 2017-08-30 14:42 | HHI.NSPN ---
Note Status Status: Progress Note Interval History Diagnosis trauma Interval History Mr. Flores is a 46 year old male who presents as a transfer from [place], [place]. Patient cannot provide history this history obtained from patient's medical record. On 08/14/17 he had a witnessed fall while intoxicated, forward striking his head. There was no reported seizure activity. He sustained a nondisplaced frontal bone fracture, bilateral frontal hemorrhagic contusions, left frontal subdural hematoma (124 mm). He was admitted to the trauma surgery service at the outside hospital with Neurosurgical evaluation and was managed nonoperatively. He had underwent subsequent follow-up CT scans 08/15 and 08/16 which were stable and showing resolution of subdural hematoma. He was also being treated for delirium tremens with Librium, thiamine, folic acid. He has been on Seroquel 50 mg by mouth twice a day and Precedex drip for impulsivity. He was on Keppra for seizure prophylaxis. Another repeat CT brain 08/24 showed reduction of frontal hemorrhages with increase in edema, particularly in left frontal lobe. Bilateral subdural hygromas present and family has requested transfer for second opinion, as well as family members being local here in [facility]. A CT Brain has been completed here at [facility]. He is Currently undergoing EEG study. 08/28: confused, following simple commands. reported to have ambulated with PT this am. 08/29: no changes to neuro checks, awake, alert, smiling and waving hello. 08/30. Neurologically stable for rehab Labs, Micro, & Vital Signs Results Date Time Temp Pulse Resp B/P (MAP) Pulse Ox O2 Delivery O2 Flow Rate FiO2 08/30/17 04:00 98.7 119 32 140/82 (101) 94 08/30/17 00:00 98.4 107 18 147/95 (112) 95 08/29/17 21:01 95 21 08/29/17 20:00 98.7 96 25 135/82 (99) 94 08/29/17 19:15 96 08/29/17 19:00 96 Room Air 08/29/17 16:00 98.1 103 17 126/91 (103) 94 Constitutional Vital Signs Date Time Temp Pulse Resp B/P (MAP) Pulse Ox O2 Delivery O2 Flow Rate FiO2 08/30/17 04:00 98.7 119 32 140/82 (101) 94 08/30/17 00:00 98.4 107 18 147/95 (112) 95 08/29/17 21:01 95 21 08/29/17 20:00 98.7 96 25 135/82 (99) 94 08/29/17 19:15 96 08/29/17 19:00 96 Room Air 08/29/17 16:00 98.1 103 17 126/91 (103) 94 Physical Exam GEN: Mr. Flores is resting comfortably, no acute distress, smiling and waving hello. HEENT: normocephalic, nonicteric sclera Neuro: alert, oriented to self only. Cranial nerve examination: pupils equal, round, and reactive to light. Facial motor function appears normal and symmetrical. Neck is soft and supple. Musculoskeletal: no obvious deformities, moves all four extremities Cerebellar examination is limited Heart: regular rate, rhythm Respiratory: clear Skin: warm, dry Medications Current Medications Current Medications Dexmedetomidine HCl 200 mcg/ Sodium Chloride 52 ml @ 5.06 mls/hr TITRATE PRN IV SEDATION Last administered on 08/25/17 21:52; Start 08/25/17 at 18:45; Stop at 23:48; Status DC Sodium Chloride (NS Flush) 2 ml UNSCH PRN IV FLUSH FLUSH AFTER USING IV ACCESS Last administered on 08/29/17 00:50; Start 08/25/17 at 19:30 Sodium Chloride (NS Flush) 2 ml BID IV FLUSH Last administered on 08/29/17 21: 02; Start 08/25/17 at 21:00 Acetaminophen (Tylenol) 650 mg Q6H PRN PO PAIN 1-3 OR FEVER >101; Start at 19:30 Famotidine (Pepcid Inj) 20 mg Q12HR IV PUSH Last administered on 08/25/17 20:09 ; Start 08/25/17 at 21:00; Stop 08/26/17 at 11:17; Status DC Famotidine (Pepcid) 20 mg Q12HR PO Last administered on 08/30/17at 09:01; Start 08/25/17 at 21:00 Ondansetron HCl (Zofran Inj) 4 mg Q6H PRN IV PUSH NAUSEA OR VOMITING Last administered on 08/27/17 09:14; Start 08/25/17 at 19:30 Albuterol/ Ipratropium (Duoneb Neb) 1 ampule Q6HR NEB INH Last administered on 08/26/17 08:20; Start 08/25/17 at 22:00; Stop 08/26/17 at 08:39; Status DC Albuterol Sulfate (Albuterol Neb) 2.5 mg Q2HR NEB PRN INH SOB/WHEEZING; Start 08/25/17 at 19:30; Stop 08/26/17 at 08:39; Status DC Miscellaneous Information 1 Q361D XX Last administered on 08/25/17 19:30; Start 08/25/17 at 19:30 Chlorhexidine Gluconate (Chlorhexidine 2% Cloth) 3 pack Taper DAILY@04 TOP Last administered on 08/29/17at 21:04; Start 08/26/17 at 04:00; Stop 08/22/18 at 03: 59 Chlorhexidine Gluconate (Chlorhexidine 2% Cloth) 3 pack UNSCH PRN TOP HYGIENIC CARE; Start 08/25/17 at 19:30 Senna/Docusate Sodium (Elena-Colace) 1 tab BID PO Last administered on 08/30/17at 09:02; Start 08/25/17 at 21:00 Magnesium Hydroxide (Milk Of Magnesia Liq) 30 ml Q12H PRN PO Mild constipation ; Start 08/25/17 at 19:30 Sennosides (Senokot) 17.2 mg Q12H PRN PO Moderate constipation; Start 08/25/17 at 19:30 Bisacodyl (Dulcolax Supp) 10 mg DAILY PRN RECTAL SEVERE CONSITIPATION; Start at 19:30 Lactulose (Lactulose Liq) 30 ml DAILY PRN PO SEVERE CONSITIPATION; Start at 19:30 Quetiapine Fumarate (SEROquel) 50 mg Q12HR PO Last administered on 08/26/17 09: 11; Start 08/25/17 at 21:00; Stop 08/26/17 at 11:20; Status DC Dexmedetomidine HCl 1000 mcg/ Sodium Chloride 250 ml @ 4.87 mls/hr TITRATE PRN IV SEDATION Last administered on 08/26/17 00:17; Start 08/25/17 at 23:59; Stop 08/26/17 at 11:17; Status DC Divalproex Sodium (Depakote Dr) 500 mg BID PO Last administered on 08/30/17 09: 01; Start 08/26/17 at 09:00 Albuterol/ Ipratropium (Duoneb Neb) 1 ampule Q6HR NEB NEB Last administered on 08/29/17 08:49; Start 08/26/17 at 10:00; Stop 08/29/17 at 10:21; Status DC Albuterol Sulfate (Albuterol Neb) 2.5 mg Q2HR NEB PRN NEB WHEEZING; Start at 08:45 Quetiapine Fumarate (SEROquel) 50 mg Q8H PO Last administered on 08/30/17 09:01 ; Start 08/26/17 at 17:00 Haloperidol Lactate (Haldol Inj) 4 mg Q4H PRN IV agitation Last administered on 08/29/17 11:49; Start 08/26/17 at 11:30 Lorazepam (Ativan Inj) 1 mg Q4H PRN IV PUSH agitation Last administered on 14:43; Start 08/26/17 at 11:30; Stop 08/26/17 at 16:21; Status DC Clonidine (Catapres) 0.1 mg Q8HR PO Last administered on 08/30/17at 14:00; Start 08/26/17 at 14:00 Enoxaparin Sodium (Lovenox Inj) 40 mg Q24H SQ Last administered on 08/30/17 12: 00; Start 08/26/17 at 12:00 Lorazepam (Ativan Inj) 2 mg Q4H PRN IV PUSH agitation Last administered on 04:36; Start 08/26/17 at 16:30 Chlordiazepoxide (Librium) 25 mg BID PO Last administered on 08/30/17 09:02; Start 08/26/17 at 16:30; Stop 08/30/17 at 10:46; Status DC Labetalol HCl (Trandate Inj) 10 mg Q1HR PRN IV PUSH SBP>150, DBP>90, HR>65 Last administered on 08/28/17 21:04; Start 08/26/17 at 20:00 Nicardipine HCl 25 mg/Sodium Chloride 250 ml @ 50 mls/hr TITRATE PRN IV Blood pressure management Last administered on 08/26/17at 22:59; Start 08/26/17 at 20:00 Magnesium Hydroxide (Milk Of Magnesia Liq) 30 ml DAILY PRN PO MILD CONSTIPATION Last administered on 08/29/17at 00:56; Start 08/28/17 at 12:15 Thiamine HCl (Vitamin B1) 100 mg DAILY PO Last administered on 08/29/17 11:49; Start 08/29/17 at 10:30 Multivitamins (Theragran) 1 tab DAILY PO Last administered on 08/30/17at 09:02; Start 08/29/17 at 10:30 Folic Acid (Folate) 1 mg DAILY PO Last administered on 08/30/17at 09:02; Start at 10:30 Chlordiazepoxide (Librium) 20 mg BID PO ; Start 08/30/17 at 21:00 Attending Statement GEN: Mr. Flores is resting comfortably, no acute distress, smiling and waving hello. Continue neuro checks in a serial fashion. Continue non operative management of traumatic head injury. Stable for discharge to rehab EEG will be reviewed Pulmonary. Continue aggressive pulmonary toilette, nasotracheal suction, and breathing treatments with nebulizers. Daily PT and OT Nutrition. Tolerating Oral diet Renal. Continue to monitor closely urine output, BUN and creatinine Endocrine. Continue to Monitor serial Acu checks and SSI as needed in detail ID continue to monitor for signs of infection Continue Protonix for stress ulcer prophylaxis Caprini VTE Risk Assessment Caprini VTE Risk Assessment Caprini Risk Assessment Model Point Value = 1 Point Value = 2 Point Value = 3 Point Value = 5 Age 41-60 Minor surgery BMI > 25 kg/m2 Swollen legs Varicose veins or History of unexplained or recurrent spontaneous Oral contraceptives or hormone replacement Sepsis (< 1 month) Serious lung disease, including pneumonia (< 1 month) Abnormal pulmonary function Acute myocardial infarction Congestive heart failure (< 1 month) History of inflammatory bowel disease Medical patient at bed rest Age 61-74 Arthroscopic surgery Major open surgery (> 45 min) Laparoscopic surgery (> 45 min) Malignancy Confined to bed (> 72 hours) Immobilizing plaster cast Central venous access Age >= 75 History of VTE Family history of VTE Factor V Leiden Prothrombin [id number] Lupus anticoagulant Anticardiolipin antibodies Elevated serum homocysteine Heparin-induced thrombocytopenia Other congenital or acquired thrombophilia Stroke (< 1 month) Elective arthroplasty Hip, pelvis, or leg fracture Acute spinal cord injury (< 1 month) Prophylaxis Regimen Total Risk Factor Score Risk Level Prophylaxis Regimen 0-1 Low Early ambulation 2 Moderate Order ONE of the following: *Sequential Compression Device (SCD) *Heparin 5000 units SQ BID 3-4 Higher Order ONE of the following medications: *Heparin 5000 units SQ TID *Enoxaparin/Lovenox 40 mg SQ daily (WT < 150 kg, CrCl > 30 mL/min) *Enoxaparin/Lovenox 30 mg SQ daily (WT < 150 kg, CrCl > 10-29 mL/min) *Enoxaparin/Lovenox 30 mg SQ BID (WT < 150 kg, CrCl > 30 mL/min) AND/OR *Sequential Compression Device (SCD) 5 or more Highest Order ONE of the following medications: *Heparin 5000 units SQ TID (Preferred with Epidurals) *Enoxaparin/Lovenox 40 mg SQ daily (WT < 150 kg, CrCl > 30 mL/min) *Enoxaparin/Lovenox 30 mg SQ daily (WT < 150 kg, CrCl > 10-29 mL/min) *Enoxaparin/Lovenox 30 mg SQ BID (WT < 150 kg, CrCl > 30 mL/min) AND *Sequential Compression Device (SCD) Continue Cosmo reyes and SCD's for DVT prophylaxis Dell Lobo MD Aug 30, 2017 14:42
[2017-08-31] VITALS: BP 170/112; PULSE 111; RESP 21; TEMP 98.2; O2SAT 95
[2017-08-31] MEDS: QUEtiapine FUMARATE 25 MG TAB PO SCH ×3 (01:41→16:45)
[2017-08-31 04:00] VITALS: BP 149/81; PULSE 109; RESP 20; TEMP 98.8; O2SAT 95
[2017-08-31] MEDS: cloNIDine HCL 0.1 MG TAB PO SCH ×3 (06:43→22:10)
[2017-08-31 08:08] VITALS: BP 125/78; PULSE 93; RESP 18; TEMP 97.8; O2SAT 93
[2017-08-31] MEDS: MULTIVITAMIN TAB PO SCH (08:35)
[2017-08-31] MEDS: THIAMINE HCL 100 MG TAB PO SCH (08:35)
[2017-08-31] MEDS: DIVALPROEX DR 500 MG TABEC PO SCH ×2 (08:35→21:44)
[2017-08-31] MEDS: SODIUM CHLORIDE 0.9% FLUSH 10 ML FLUSH IV FLUSH SCH ×2 (08:35→21:45)
[2017-08-31] MEDS: FOLIC ACID 1 MG TAB PO SCH (08:35)
[2017-08-31] MEDS: DOCUSATE SODIUM 50 MG/SENNA 8.6 MG TAB PO SCH ×2 (08:35→21:45)
[2017-08-31] MEDS: FAMOTIDINE 20 MG TAB PO SCH ×2 (08:36→21:44)
--- NOTE | 2017-08-31 11:21 | HHI.PR ---
Subjective Remarks in no acute distress. awake but still confused. still on restraints. Objective Vitals Vital Signs Date Time Temp Pulse Resp B/P (MAP) Pulse Ox O2 Delivery O2 Flow Rate FiO2 08/31/17 08:08 97.8 93 18 125/78 (94) 93 08/31/17 04:00 98.8 109 20 149/81 (103) 95 08/31/17 00:00 98.2 111 21 170/112 (131) 95 08/30/17 21:19 98 21 08/30/17 20:53 Room Air 08/30/17 20:51 98.4 107 16 127/91 (103) 96 08/30/17 17:53 Room Air 08/30/17 16:00 98.3 108 24 126/91 (103) 98 08/30/17 12:00 98.0 104 15 132/78 (96) 95 I/O 08/30/17 08/30/17 08/30/17 08/31/17 08/31/17 08/31/17 07:00 15:00 23:00 07:00 15:00 23:00 Intake Total 240 ml Output Total 0 ml Balance 240 ml Intake Oral 240 ml Output Stool Total 0 ml # Voids 3 2 # Bowel Movements 0 Imaging Last Impressions Head CT 08/26/17 0000 Signed Impressions: Service Date/Time: Saturday, August 26, 2017 08:05 - CONCLUSION: Skull fracture on the right focal bone within the encephalomalacic changes both orbitofrontal regions. Small 9 mm right subdural hygroma I have no prior studies for comparison. Due to the exists? Flaco Razo MD FACR Chest X-Ray 08/25/17 0000 Signed Impressions: Service Date/Time: Friday, August 25, 2017 19:34 - CONCLUSION: 1. Basilar airspace disease, right greater the left. Differential diagnosis includes pneumonia and atelectasis/aspiration. Virgilio Wilhelm MD Objective Remarks GENERAL: This is a well-nourished, well-developed patient, in no apparent distress. CARDIOVASCULAR: Regular rate and regular rhythm without murmurs, gallops, or rubs. RESPIRATORY: Clear to auscultation. Breath sounds equal bilaterally. No wheezes , rales, or rhonchi. GASTROINTESTINAL: Abdomen soft, non-tender, nondistended. Normal, active bowel sounds MUSCULOSKELETAL: Extremities without clubbing, cyanosis, or edema. NEURO: lethargic but easily arousable. Medications and IVs Inpatient Medications Acetaminophen (Tylenol) 650 mg Q6H PRN PO PAIN 1-3 OR FEVER >101; Start at 19:30 Albuterol Sulfate (Albuterol Neb) 2.5 mg Q2HR NEB PRN NEB WHEEZING; Start at 08:45 Albuterol/ Ipratropium (Duoneb Neb) 1 ampule Q6HR NEB NEB Last administered on 08/29/17at 08:49; Start 08/26/17 at 10:00; Stop 08/29/17 at 10:21; Status DC Bisacodyl (Dulcolax Supp) 10 mg DAILY PRN RECTAL SEVERE CONSITIPATION; Start at 19:30 Chlordiazepoxide (Librium) 20 mg BID PO Last administered on 08/31/17 08:35; Start 08/30/17 at 21:00 Chlorhexidine Gluconate (Chlorhexidine 2% Cloth) 3 pack UNSCH PRN TOP HYGIENIC CARE; Start 08/25/17 at 19:30 Clonidine (Catapres) 0.1 mg Q8HR PO Last administered on 08/31/17 06:43; Start 08/26/17 at 14:00 Dexmedetomidine HCl 1000 mcg/ Sodium Chloride 250 ml @ 4.87 mls/hr TITRATE PRN IV SEDATION Last administered on 08/26/17at 00:17; Start 08/25/17 at 23:59; Stop 08/26/17 at 11:17; Status DC Dexmedetomidine HCl 200 mcg/ Sodium Chloride 52 ml @ 5.06 mls/hr TITRATE PRN IV SEDATION Last administered on 08/25/17 21:52; Start 08/25/17 at 18:45; Stop at 23:48; Status DC Divalproex Sodium (Depakote Dr) 500 mg BID PO Last administered on 08/31/17at 08 :35; Start 08/26/17 at 09:00 Enoxaparin Sodium (Lovenox Inj) 40 mg Q24H SQ Last administered on 08/30/17at 12: 00; Start 08/26/17 at 12:00 Famotidine (Pepcid Inj) 20 mg Q12HR IV PUSH Last administered on 08/25/17 20:09 ; Start 08/25/17 at 21:00; Stop 08/26/17 at 11:17; Status DC Famotidine (Pepcid) 20 mg Q12HR PO Last administered on 08/31/17 08:36; Start 08/25/17 at 21:00 Folic Acid (Folate) 1 mg DAILY PO Last administered on 08/31/17 08:35; Start 08/29/17 at 10:30 Haloperidol Lactate (Haldol Inj) 4 mg Q4H PRN IV agitation Last administered on 08/29/17 11:49; Start 08/26/17 at 11:30 Labetalol HCl (Trandate Inj) 10 mg Q1HR PRN IV PUSH SBP>150, DBP>90, HR>65 Last administered on 08/28/17 21:04; Start 08/26/17 at 20:00 Lactulose (Lactulose Liq) 30 ml DAILY PRN PO SEVERE CONSITIPATION; Start at 19:30 Lorazepam (Ativan Inj) 2 mg Q4H PRN IV PUSH agitation Last administered on 04:36; Start 08/26/17 at 16:30 Magnesium Hydroxide (Milk Of Magnesia Liq) 30 ml DAILY PRN PO MILD CONSTIPATION Last administered on 08/29/17 00:56; Start 08/28/17 at 12:15 Miscellaneous Information 1 Q361D XX Last administered on 08/25/17 19:30; Start 08/25/17 at 19:30 Multivitamins (Theragran) 1 tab DAILY PO Last administered on 08/31/17 08:35; Start 08/29/17 at 10:30 Nicardipine HCl 25 mg/Sodium Chloride 250 ml @ 50 mls/hr TITRATE PRN IV Blood pressure management Last administered on 08/26/17 22:59; Start 08/26/17 at 20:00 Ondansetron HCl (Zofran Inj) 4 mg Q6H PRN IV PUSH NAUSEA OR VOMITING Last administered on 08/27/17 09:14; Start 08/25/17 at 19:30 Quetiapine Fumarate (SEROquel) 50 mg Q8H PO Last administered on 3/10/18at 08: 35; Start 08/26/17 at 17:00 Senna/Docusate Sodium (Elena-Colace) 1 tab BID PO Last administered on at 08:35; Start 08/25/17 at 21:00 Sennosides (Senokot) 17.2 mg Q12H PRN PO Moderate constipation; Start 08/25/17 at 19:30 Sodium Chloride (NS Flush) 2 ml BID IV FLUSH Last administered on 08/31/17 08: 35; Start 08/25/17 at 21:00 Thiamine HCl (Vitamin B1) 100 mg DAILY PO Last administered on 08/31/17 08:35 ; Start 08/29/17 at 10:30 A/P Assessment and Plan A/P TBI Nondisplaced frontal bone fracture Left frontal subdural hematoma Left frontal subarachnoid hemorrhage Punctate frontal lobe hemorrhagic contusions Agitated delirium Alcohol dependence CT 08/26 Skull fracture on the right, encephalomalacia both orbitofrontal regions. Small 9 mm right subdural hygroma. Dr. Lobo consulted CT Scans were performed at outside hospital 08/14, 08/15, 08/16. CT brain 08/14 - linear nondisplaced frontal bone fracture. Punctate hemorrhagic contusions Inferior frontal lobes. Subdural blood along tentorium and small left frontal subdural hematoma 12 x 4 mm. Bilateral frontal subarachnoid hemorrhage Follow-up CT 08/15 was stable. Follow-up CT 08/16 Stable hemorrhagic contusions and subarachnoid hemorrhage. Subdural blood along the left frontal lobe was no longer apparent. EEG with no focal or diffuse abnormality. Suspect ongoing impulsivity largely related to frontal lobe involvement, though prior hospital course has been complicated by DTs. Continue Seroquel . will continue to taper down librium. on clonidine 0.1 mg every 8 hours. Use Ativan as needed. Continue Depakote Thiamine/folic acid/MVI daily. PT/OT/speech therapy for cognitive, swallow evaluation COPD Suspected obstructive sleep apnea Tobacco abuse Was on BiPAP at OSH for suspected sleep apnea, will continue Continue nicotine patch continue neb treatment. Hypertension Monitor hemodynamics Obesity Hepatic steatosis Cleared by speech, start regular diet Thrombocytosis, reactive Monitor CBC DVT prophylaxis with subq Lovenox ( ok with neurosurgery). Discharge Planning dc planning; rehab when off restraints. d/w the case management. Rachel Leblanc MD Aug 31, 2017 11:21
[2017-08-31] MEDS: ENOXAPARIN SODIUM 40 MG/0.4 ML SYRINGE SQ SCH (11:31)
[2017-08-31 12:40] VITALS: BP 155/105; PULSE 109; RESP 18; O2SAT 97
[2017-08-31 16:07] VITALS: BP 141/98; PULSE 111; RESP 18; TEMP 98.7; O2SAT 98
[2017-08-31 20:00] VITALS: BP 141/80; PULSE 115; RESP 20; TEMP 98.3; O2SAT 94
[2017-08-31] MEDS: HALOPERIDOL LACTATE 5 MG/ML AMP IV PRN (22:48)
[2017-09-01] VITALS (7 sets, daily range): BP systolic 120–152; BP diastolic 74–95; PULSE 93–130; RESP 18–20; TEMP 97.5–98.5; O2SAT 94–99
[2017-09-01] MEDS: QUEtiapine FUMARATE 25 MG TAB PO SCH ×3 (01:29→17:25)
[2017-09-01] MEDS: cloNIDine HCL 0.1 MG TAB PO SCH ×3 (06:00→20:43)
[2017-09-01] MEDS: FAMOTIDINE 20 MG TAB PO SCH ×2 (08:19→20:40)
[2017-09-01] MEDS: FOLIC ACID 1 MG TAB PO SCH (08:19)
[2017-09-01] MEDS: MULTIVITAMIN TAB PO SCH (08:19)
[2017-09-01] MEDS: DIVALPROEX DR 500 MG TABEC PO SCH ×2 (08:19→20:40)
[2017-09-01] MEDS: SODIUM CHLORIDE 0.9% FLUSH 10 ML FLUSH IV FLUSH SCH ×2 (08:19→20:40)
[2017-09-01] MEDS: THIAMINE HCL 100 MG TAB PO SCH (08:19)
[2017-09-01] MEDS: DOCUSATE SODIUM 50 MG/SENNA 8.6 MG TAB PO SCH ×2 (08:19→21:00)
--- NOTE | 2017-09-01 10:21 | HHI.PR ---
Subjective Remarks in no acute distress. clinically no change. still on restraints. Objective Vitals Vital Signs Date Time Temp Pulse Resp B/P (MAP) Pulse Ox O2 Delivery O2 Flow Rate FiO2 09/01/17 08:00 97.5 93 18 149/94 (112) 99 09/01/17 04:00 97.8 96 20 120/80 (93) 95 09/01/17 00:00 98.5 99 20 152/95 (114) 98 08/31/17 20:00 98.3 115 20 141/80 (100) 94 08/31/17 16:07 98.7 111 18 141/98 (112) 98 08/31/17 12:40 109 18 155/105 (122) 97 I/O 08/31/17 08/31/17 08/31/17 09/01/17 09/01/17 09/01/17 07:00 15:00 23:00 07:00 15:00 23:00 # Voids 2 1 1 # Bowel Movements 0 0 Imaging Last Impressions Head CT 08/26/17 0000 Signed Impressions: Service Date/Time: Saturday, August 26, 2017 08:05 - CONCLUSION: Skull fracture on the right focal bone within the encephalomalacic changes both orbitofrontal regions. Small 9 mm right subdural hygroma I have no prior studies for comparison. Due to the exists? Flaco Razo MD FACR Chest X-Ray 08/25/17 0000 Signed Impressions: Service Date/Time: Friday, August 25, 2017 19:34 - CONCLUSION: 1. Basilar airspace disease, right greater the left. Differential diagnosis includes pneumonia and atelectasis/aspiration. Virgilio Wilhelm MD Objective Remarks GENERAL: This is a well-nourished, well-developed patient, in no apparent distress. CARDIOVASCULAR: Regular rate and regular rhythm without murmurs, gallops, or rubs. RESPIRATORY: Clear to auscultation. Breath sounds equal bilaterally. No wheezes , rales, or rhonchi. GASTROINTESTINAL: Abdomen soft, non-tender, nondistended. Normal, active bowel sounds MUSCULOSKELETAL: Extremities without clubbing, cyanosis, or edema. NEURO: lethargic but easily arousable. Medications and IVs Inpatient Medications Acetaminophen (Tylenol) 650 mg Q6H PRN PO PAIN 1-3 OR FEVER >101; Start at 19:30 Albuterol Sulfate (Albuterol Neb) 2.5 mg Q2HR NEB PRN NEB WHEEZING; Start at 08:45 Albuterol/ Ipratropium (Duoneb Neb) 1 ampule Q6HR NEB NEB Last administered on 08/29/17at 08:49; Start 08/26/17 at 10:00; Stop 08/29/17 at 10:21; Status DC Bisacodyl (Dulcolax Supp) 10 mg DAILY PRN RECTAL SEVERE CONSITIPATION; Start at 19:30 Chlordiazepoxide (Librium) 20 mg BID PO Last administered on 09/01/17at 08:19; Start 08/30/17 at 21:00 Chlorhexidine Gluconate (Chlorhexidine 2% Cloth) 3 pack UNSCH PRN TOP HYGIENIC CARE; Start 08/25/17 at 19:30 Clonidine (Catapres) 0.1 mg Q8HR PO Last administered on 08/31/17at 22:10; Start 08/26/17 at 14:00 Dexmedetomidine HCl 1000 mcg/ Sodium Chloride 250 ml @ 4.87 mls/hr TITRATE PRN IV SEDATION Last administered on 08/26/17at 00:17; Start 08/25/17 at 23:59; Stop 08/26/17 at 11:17; Status DC Dexmedetomidine HCl 200 mcg/ Sodium Chloride 52 ml @ 5.06 mls/hr TITRATE PRN IV SEDATION Last administered on 08/25/17at 21:52; Start 08/25/17 at 18:45; Stop at 23:48; Status DC Divalproex Sodium (Depakote Dr) 500 mg BID PO Last administered on 09/01/17at 08 :19; Start 08/26/17 at 09:00 Enoxaparin Sodium (Lovenox Inj) 40 mg Q24H SQ Last administered on 08/31/17at 11 :31; Start 08/26/17 at 12:00 Famotidine (Pepcid Inj) 20 mg Q12HR IV PUSH Last administered on 08/25/17at 20:09 ; Start 08/25/17 at 21:00; Stop 08/26/17 at 11:17; Status DC Famotidine (Pepcid) 20 mg Q12HR PO Last administered on 09/01/17 08:19; Start 08/25/17 at 21:00 Folic Acid (Folate) 1 mg DAILY PO Last administered on 09/01/17 08:19; Start 08/29/17 at 10:30 Haloperidol Lactate (Haldol Inj) 4 mg Q4H PRN IV agitation Last administered on 08/31/17 22:48; Start 08/26/17 at 11:30 Labetalol HCl (Trandate Inj) 10 mg Q1HR PRN IV PUSH SBP>150, DBP>90, HR>65 Last administered on 08/28/17 21:04; Start 08/26/17 at 20:00 Lactulose (Lactulose Liq) 30 ml DAILY PRN PO SEVERE CONSITIPATION; Start at 19:30 Lorazepam (Ativan Inj) 2 mg Q4H PRN IV PUSH agitation Last administered on 04:36; Start 08/26/17 at 16:30 Magnesium Hydroxide (Milk Of Magnesia Liq) 30 ml DAILY PRN PO MILD CONSTIPATION Last administered on 08/29/17 00:56; Start 08/28/17 at 12:15 Miscellaneous Information 1 Q361D XX Last administered on 08/25/17 19:30; Start 08/25/17 at 19:30 Multivitamins (Theragran) 1 tab DAILY PO Last administered on 09/01/17 08:19; Start 08/29/17 at 10:30 Nicardipine HCl 25 mg/Sodium Chloride 250 ml @ 50 mls/hr TITRATE PRN IV Blood pressure management Last administered on 08/26/17 22:59; Start 08/26/17 at 20:00 Ondansetron HCl (Zofran Inj) 4 mg Q6H PRN IV PUSH NAUSEA OR VOMITING Last administered on 08/27/17 09:14; Start 08/25/17 at 19:30 Quetiapine Fumarate (SEROquel) 50 mg Q8H PO Last administered on 09/01/17 08: 19; Start 08/26/17 at 17:00 Senna/Docusate Sodium (Elena-Colace) 1 tab BID PO Last administered on 08:19; Start 08/25/17 at 21:00 Sennosides (Senokot) 17.2 mg Q12H PRN PO Moderate constipation; Start 08/25/17 at 19:30 Sodium Chloride (NS Flush) 2 ml BID IV FLUSH Last administered on 09/01/17at 08: 19; Start 08/25/17 at 21:00 Thiamine HCl (Vitamin B1) 100 mg DAILY PO Last administered on 09/01/17at 08:19 ; Start 08/29/17 at 10:30 A/P Assessment and Plan A/P TBI Nondisplaced frontal bone fracture Left frontal subdural hematoma Left frontal subarachnoid hemorrhage Punctate frontal lobe hemorrhagic contusions Agitated delirium Alcohol dependence CT 08/26 Skull fracture on the right, encephalomalacia both orbitofrontal regions. Small 9 mm right subdural hygroma. Dr. Lobo consulted CT Scans were performed at outside hospital 08/14, 08/15, 08/16. CT brain 08/14 - linear nondisplaced frontal bone fracture. Punctate hemorrhagic contusions Inferior frontal lobes. Subdural blood along tentorium and small left frontal subdural hematoma 12 x 4 mm. Bilateral frontal subarachnoid hemorrhage Follow-up CT 08/15 was stable. Follow-up CT 08/16 Stable hemorrhagic contusions and subarachnoid hemorrhage. Subdural blood along the left frontal lobe was no longer apparent. EEG with no focal or diffuse abnormality. Suspect ongoing impulsivity largely related to frontal lobe involvement, though prior hospital course has been complicated by DTs. Continue Seroquel . will continue to taper down librium. on clonidine 0.1 mg every 8 hours. Use Ativan as needed. Continue Depakote Thiamine/folic acid/MVI daily. PT/OT/speech therapy for cognitive, swallow evaluation COPD Suspected obstructive sleep apnea Tobacco abuse Was on BiPAP at OSH for suspected sleep apnea, will continue Continue nicotine patch continue neb treatment. Hypertension Monitor hemodynamics Obesity Hepatic steatosis Cleared by speech, start regular diet Thrombocytosis, reactive Monitor CBC DVT prophylaxis with subq Lovenox ( ok with neurosurgery). Discharge Planning dc planning; rehab when off restraints. d/w the case management. Rachel Leblanc MD Sep 01, 2017 10:21
[2017-09-01] MEDS: ENOXAPARIN SODIUM 40 MG/0.4 ML SYRINGE SQ SCH (11:23)
[2017-09-01] MEDS: LACTULOSE SYRUP 20 GM/30 ML CUP PO PRN (13:11)
[2017-09-01] MEDS: HALOPERIDOL LACTATE 5 MG/ML AMP IV PRN (22:56)
[2017-09-02] VITALS (8 sets, daily range): BP systolic 124–154; BP diastolic 72–95; PULSE 82–118; RESP 18–20; TEMP 97.6–98.1; O2SAT 93–98
[2017-09-02] MEDS: ACETAMINOPHEN 325 MG TAB PO PRN
[2017-09-02] MEDS: cloNIDine HCL 0.1 MG TAB PO SCH ×3 (06:09→21:25)
[2017-09-02 08:47] LABS: AUTOMATED NEUTROPHIL # 3.4 TH/MM3 (1.8-7.7); BASOPHIL # 0.1 TH/MM3 (0-0.2); BASOPHIL % 0.8 % (0.0-2.0); EOSINOPHIL # 0.4 TH/MM3 (0-0.4); EOSINOPHIL % 5.5 % (0.0-4.0); HEMATOCRIT 46.1 % (39.0-51.0); HEMOGLOBIN 15.9 GM/DL (13.0-17.0); LYMPH % 32.5 % (9.0-44.0); LYMPHOCYTE # 2.4 TH/MM3 (1.0-4.8); MEAN CELL VOLUME 90.8 FL (80.0-100.0); MEAN CORPUSCULAR HEMOGLOBIN 31.2 PG (27.0-34.0); MEAN CORPUSCULAR HGB CONC 34.4 % (32.0-36.0); MEAN PLATELET VOLUME 9.3 FL (7.0-11.0); MONO % 16.5 % (0.0-8.0); MONOCYTE # 1.2 TH/MM3 (0-0.9); NEUT % 44.7 % (16.0-70.0); PLATELET COUNT 459 TH/MM3 (150-450); RED BLOOD COUNT 5.08 MIL/MM3 (4.50-5.90); RED CELL DISTRIBUTION WIDTH 14.1 % (11.6-17.2); WHITE BLOOD COUNT 7.5 TH/MM3 (4.0-11.0)
[2017-09-02] MEDS: SODIUM CHLORIDE 0.9% FLUSH 10 ML FLUSH IV FLUSH SCH ×2 (09:05→21:26)
[2017-09-02] MEDS: DOCUSATE SODIUM 50 MG/SENNA 8.6 MG TAB PO SCH ×2 (09:06→21:25)
[2017-09-02] MEDS: MULTIVITAMIN TAB PO SCH (09:06)
[2017-09-02] MEDS: FAMOTIDINE 20 MG TAB PO SCH ×2 (09:06→21:25)
[2017-09-02] MEDS: FOLIC ACID 1 MG TAB PO SCH (09:06)
[2017-09-02] MEDS: DIVALPROEX DR 500 MG TABEC PO SCH ×2 (09:06→21:25)
[2017-09-02] MEDS: THIAMINE HCL 100 MG TAB PO SCH (09:06)
[2017-09-02] MEDS: QUEtiapine FUMARATE 25 MG TAB PO SCH ×3 (09:06→17:01)
[2017-09-02 09:09] LABS: BICARBONATE 27.3 MEQ/L (21.0-32.0); CALCIUM 9.7 MG/DL (8.5-10.1); CREATININE 1.09 MG/DL (0.60-1.30)
--- NOTE | 2017-09-02 11:07 | HHI.PR ---
Subjective Remarks clinically no significant change. still confused and on restraints. Objective Vitals Vital Signs Date Time Temp Pulse Resp B/P (MAP) Pulse Ox O2 Delivery O2 Flow Rate FiO2 09/02/17 10:00 96 09/02/17 08:25 97.8 90 18 124/95 (105) 95 09/02/17 04:00 98.1 84 18 148/93 (111) 94 09/02/17 00:00 98.0 118 18 132/87 (102) 94 09/01/17 22:23 96 09/01/17 20:00 98.2 130 18 136/93 (107) 94 09/01/17 16:00 97.5 108 18 138/74 (95) 96 Automatic Cuff 09/01/17 12:00 97.7 112 18 147/91 (109) 95 I/O 09/01/17 09/01/17 09/01/17 09/02/17 09/02/17 09/02/17 07:00 15:00 23:00 07:00 15:00 23:00 Intake Total 180 ml Output Total 300 ml Balance -120 ml Intake Oral 180 ml Output Urine Total 300 ml # Voids 1 1 # Bowel Movements 0 1 Result Diagram: 09/02/17 0736 09/02/17 0736 Imaging Last Impressions Head CT 08/26/17 0000 Signed Impressions: Service Date/Time: Saturday, August 26, 2017 08:05 - CONCLUSION: Skull fracture on the right focal bone within the encephalomalacic changes both orbitofrontal regions. Small 9 mm right subdural hygroma I have no prior studies for comparison. Due to the exists? Flaco Razo MD FACR Chest X-Ray 08/25/17 0000 Signed Impressions: Service Date/Time: Friday, August 25, 2017 19:34 - CONCLUSION: 1. Basilar airspace disease, right greater the left. Differential diagnosis includes pneumonia and atelectasis/aspiration. Virgilio Wilhelm MD Objective Remarks GENERAL: This is a well-nourished, well-developed patient, in no apparent distress. CARDIOVASCULAR: Regular rate and regular rhythm without murmurs, gallops, or rubs. RESPIRATORY: Clear to auscultation. Breath sounds equal bilaterally. No wheezes , rales, or rhonchi. GASTROINTESTINAL: Abdomen soft, non-tender, nondistended. Normal, active bowel sounds MUSCULOSKELETAL: Extremities without clubbing, cyanosis, or edema. NEURO: lethargic but easily arousable. Medications and IVs Inpatient Medications Acetaminophen (Tylenol) 650 mg Q6H PRN PO PAIN 1-3 OR FEVER >101 Last administered on 09/02/17 00:00; Start 08/25/17 at 19:30 Albuterol Sulfate (Albuterol Neb) 2.5 mg Q2HR NEB PRN NEB WHEEZING; Start at 08:45 Albuterol/ Ipratropium (Duoneb Neb) 1 ampule Q6HR NEB NEB Last administered on 08/29/17 08:49; Start 08/26/17 at 10:00; Stop 08/29/17 at 10:21; Status DC Bisacodyl (Dulcolax Supp) 10 mg DAILY PRN RECTAL SEVERE CONSITIPATION Last administered on 09/01/17at 17:48; Start 08/25/17 at 19:30 Chlordiazepoxide (Librium) 15 mg BID PO Last administered on 09/02/17 09:06; Start 09/01/17 at 21:00 Chlorhexidine Gluconate (Chlorhexidine 2% Cloth) 3 pack UNSCH PRN TOP HYGIENIC CARE; Start 08/25/17 at 19:30 Clonidine (Catapres) 0.1 mg Q8HR PO Last administered on 09/02/17 06:09; Start 08/26/17 at 14:00 Dexmedetomidine HCl 1000 mcg/ Sodium Chloride 250 ml @ 4.87 mls/hr TITRATE PRN IV SEDATION Last administered on 08/26/17 00:17; Start 08/25/17 at 23:59; Stop 08/26/17 at 11:17; Status DC Dexmedetomidine HCl 200 mcg/ Sodium Chloride 52 ml @ 5.06 mls/hr TITRATE PRN IV SEDATION Last administered on 08/25/17 21:52; Start 08/25/17 at 18:45; Stop at 23:48; Status DC Divalproex Sodium (Depakote Dr) 500 mg BID PO Last administered on 09/02/17 09 :06; Start 08/26/17 at 09:00 Enoxaparin Sodium (Lovenox Inj) 40 mg Q24H SQ Last administered on 09/01/17 11 :23; Start 08/26/17 at 12:00 Famotidine (Pepcid Inj) 20 mg Q12HR IV PUSH Last administered on 08/25/17 20:09 ; Start 08/25/17 at 21:00; Stop 08/26/17 at 11:17; Status DC Famotidine (Pepcid) 20 mg Q12HR PO Last administered on 09/02/17 09:06; Start 08/25/17 at 21:00 Folic Acid (Folate) 1 mg DAILY PO Last administered on 09/02/17 09:06; Start 08/29/17 at 10:30 Haloperidol Lactate (Haldol Inj) 4 mg Q4H PRN IV agitation Last administered on 09/01/17 22:56; Start 08/26/17 at 11:30 Labetalol HCl (Trandate Inj) 10 mg Q1HR PRN IV PUSH SBP>150, DBP>90, HR>65 Last administered on 08/28/17 21:04; Start 08/26/17 at 20:00 Lactulose (Lactulose Liq) 30 ml DAILY PRN PO SEVERE CONSITIPATION Last administered on 09/01/17 13:11; Start 08/25/17 at 19:30 Lorazepam (Ativan Inj) 2 mg Q4H PRN IV PUSH agitation Last administered on 04:36; Start 08/26/17 at 16:30 Magnesium Hydroxide (Milk Of Magnesia Liq) 30 ml DAILY PRN PO MILD CONSTIPATION Last administered on 08/29/17 00:56; Start 08/28/17 at 12:15 Miscellaneous Information 1 Q361D XX Last administered on 08/25/17 19:30; Start 08/25/17 at 19:30 Multivitamins (Theragran) 1 tab DAILY PO Last administered on 09/02/17 09:06; Start 08/29/17 at 10:30 Nicardipine HCl 25 mg/Sodium Chloride 250 ml @ 50 mls/hr TITRATE PRN IV Blood pressure management Last administered on 08/26/17 22:59; Start 08/26/17 at 20:00 Ondansetron HCl (Zofran Inj) 4 mg Q6H PRN IV PUSH NAUSEA OR VOMITING Last administered on 08/27/17 09:14; Start 08/25/17 at 19:30 Quetiapine Fumarate (SEROquel) 50 mg Q8H PO Last administered on 09/02/17 09: 06; Start 08/26/17 at 17:00 Senna/Docusate Sodium (Elena-Colace) 1 tab BID PO Last administered on 09:06; Start 08/25/17 at 21:00 Sennosides (Senokot) 17.2 mg Q12H PRN PO Moderate constipation; Start 08/25/17 at 19:30 Sodium Chloride (NS Flush) 2 ml BID IV FLUSH Last administered on 09/02/17 09: 05; Start 08/25/17 at 21:00 Thiamine HCl (Vitamin B1) 100 mg DAILY PO Last administered on 09/02/17 09:06 ; Start 08/29/17 at 10:30 A/P Assessment and Plan A/P TBI Nondisplaced frontal bone fracture Left frontal subdural hematoma Left frontal subarachnoid hemorrhage Punctate frontal lobe hemorrhagic contusions Agitated delirium Alcohol dependence CT 08/26 Skull fracture on the right, encephalomalacia both orbitofrontal regions. Small 9 mm right subdural hygroma. Dr. Lobo consulted CT Scans were performed at outside hospital 08/14, 08/15, 08/16. CT brain 08/14 - linear nondisplaced frontal bone fracture. Punctate hemorrhagic contusions Inferior frontal lobes. Subdural blood along tentorium and small left frontal subdural hematoma 12 x 4 mm. Bilateral frontal subarachnoid hemorrhage Follow-up CT 08/15 was stable. Follow-up CT 08/16 Stable hemorrhagic contusions and subarachnoid hemorrhage. Subdural blood along the left frontal lobe was no longer apparent. EEG with no focal or diffuse abnormality. Suspect ongoing impulsivity largely related to frontal lobe involvement, though prior hospital course has been complicated by DTs. Continue Seroquel . will continue to taper down librium. on clonidine 0.1 mg every 8 hours. Use Ativan as needed. Continue Depakote Thiamine/folic acid/MVI daily. PT/OT/speech therapy for cognitive, swallow evaluation COPD Suspected obstructive sleep apnea Tobacco abuse Was on BiPAP at OSH for suspected sleep apnea, will continue Continue nicotine patch continue neb treatment. Hypertension Monitor hemodynamics Obesity Hepatic steatosis Cleared by speech, start regular diet Thrombocytosis, reactive Monitor CBC DVT prophylaxis with subq Lovenox ( ok with neurosurgery). Discharge Planning dc planning; rehab when off restraints. d/w the case management. Rachel Leblanc MD Sep 02, 2017 11:07
[2017-09-02] MEDS: ENOXAPARIN SODIUM 40 MG/0.4 ML SYRINGE SQ SCH (12:00)
--- NOTE | 2017-09-02 16:17 | HHI.PR ---
Neuropsych Behavior Behavior: Moderate: Impulsive/Agitated Cognitive Cognitive: Severe: Cognitive, Attention/Concentration, Confused/Orientation, Insight/Awareness, Judgement/Problem-Solving, Memory Psychosocial Psychosocial: Moderate: Psychosocial, Family/Other Adjustment, Realistic Expectation, Unable to Asses: Self-Esteem/Confidence Progress Notes/Response to Tx Contents of Sessions: Adjustment, Level of Consciousness Time with Patient: 15 minutes Premorbid psychological status Premorbid Cognitive, Emotional and Behavioral Status: Tenuous. The patient has high school years of education and a solid work history prior to this injury. The patient has questionable psychiatric difficulties, as described above. Substance abuse history is significant. Behavioral Reactions of Patient and Family/Support System: Stable. The patients family is experiencing ongoing issues of adjustment given the nature of the injury, and this aspect of recovery will require ongoing monitoring. Emotional/Behavioral Status of Patient and Family/Support System: Stable. Pertinent issues, if appropriate to this patients clinical care, are described in detail above. Maximizing acute care outcome It is recommended that the patient be monitored for emergent behavioral impulsivity as the medical condition evolves. This patients neuropathological challenges may limit his rehabilitation potential going forward, and these challenges will require specialized therapeutic skills to maximize outcome. Additionally, the patients family is experiencing ongoing issues of adjustment given the traumatic nature of the injury, and they may benefit from ongoing psychological assistance. At this point in the recovery process, the patient does not have cognitive capacity as the patient is unable to understand a situation and its likely consequences, nor is he able to manipulate information rationally. Cognitive capacity will be assessed throughout the recovery process. I ordered the Agitated Behavior Scale to monitor his present level of agitation and from which we can monitor the effectiveness of any intervention. His ABS presently is 29 (38.5, 21, 18.6) which falls solidly within the moderate to severely agitated range. This intervention will be conducted each nursing shift. I discussed suggestions for pharmacological management with gas system operator. Anticipated Problems Ongoing areas of concern will include behavioral impulsivity, lack of insight and judgment, which is expected to improve with time and treatment. Presently , the patient quite agitated. Given the severity of the patient's injuries it is my clinical opinion that this patient will be unable to return to any type of productive employment for at least one year, perhaps longer and likely never. This patient is not considered safe to discharge home without supervision. Treatment Plan This clinician will continue to follow with you throughout the course of this patients critical care treatment, and I will be available to meet with the patients family/support system to facilitate their understanding and the ongoing care of their family member. The goals of neuropsychological intervention shall be both educational and supportive to the family/support system as is deemed clinically appropriate. 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 Diagnosis: (1) Major neurocognitive disorder as late effect of traumatic brain injury with behavioral disturbance Status: Acute (2) Alcohol dependence in controlled environment Status: Acute (3) Alcohol withdrawal delirium Progress Note Narrative PTD 20, but admission to [place] day 8. This patient remains agitated/restless with an ABS = 28 (36.6, 21,18.6) which is consistent with mild to moderate agitation. He remains impulsive, and requiring restraints. He should be out of the window regarding withdrawals (now day 20), and benzos in combination with his TBI history (frontal lobe dysfunction) could be contributing to his clinical presentation. Unless medically contraindicated, consider continued taper of benzos, and increase Seroquel to 75 q8H, and also consider collin bed so as to get him out of wrist restraints (I note that today on my visit he was getting himself out of restraints, and as such his cognition is improving). He is [place] IV, emerging V. I will follow. Matt Oliveros PhD Sep 02, 2017 16:16
[2017-09-02] MEDS: HALOPERIDOL LACTATE 5 MG/ML AMP IV PRN (23:27)
[2017-09-03] VITALS (7 sets, daily range): BP systolic 97–181; BP diastolic 70–106; PULSE 60–104; RESP 18; TEMP 97.6–98.1; O2SAT 94–99
[2017-09-03] MEDS: QUEtiapine FUMARATE 25 MG TAB PO SCH ×3 (01:34→17:11)
[2017-09-03] MEDS: cloNIDine HCL 0.1 MG TAB PO SCH ×3 (05:05→20:50)
[2017-09-03] MEDS: MULTIVITAMIN TAB PO SCH (09:47)
[2017-09-03] MEDS: SODIUM CHLORIDE 0.9% FLUSH 10 ML FLUSH IV FLUSH SCH ×2 (09:47→20:33)
[2017-09-03] MEDS: FAMOTIDINE 20 MG TAB PO SCH ×2 (09:47→20:33)
[2017-09-03] MEDS: DOCUSATE SODIUM 50 MG/SENNA 8.6 MG TAB PO SCH ×2 (09:48→20:33)
[2017-09-03] MEDS: THIAMINE HCL 100 MG TAB PO SCH (09:48)
[2017-09-03] MEDS: DIVALPROEX DR 500 MG TABEC PO SCH ×2 (09:48→20:33)
[2017-09-03] MEDS: FOLIC ACID 1 MG TAB PO SCH (09:48)
--- NOTE | 2017-09-03 11:11 | HHI.PR ---
Subjective Remarks in no acute distress. awake but still confused. still on restraints. Objective Vitals Vital Signs Date Time Temp Pulse Resp B/P (MAP) Pulse Ox O2 Delivery O2 Flow Rate FiO2 09/03/17 07:58 98.0 88 18 126/98 (107) 97 09/03/17 04:49 97.6 60 18 181/80 (113) 97 09/03/17 01:30 166/96 (119) 09/03/17 01:15 97.9 98 18 180/106 (130) 99 09/02/17 20:50 97.9 93 18 154/90 (111) 93 09/02/17 20:30 107 09/02/17 16:52 97.6 113 18 139/89 (106) 97 09/02/17 12:50 97.9 82 20 126/72 (90) 98 I/O 09/02/17 09/02/17 09/02/17 09/03/17 09/03/17 09/03/17 07:00 15:00 23:00 07:00 15:00 23:00 Intake Total 180 ml Output Total 300 ml Balance -120 ml Intake Oral 180 ml Output Urine Total 300 ml # Voids 1 Result Diagram: 09/02/17 0736 09/02/17 0736 Imaging Last Impressions Head CT 08/26/17 0000 Signed Impressions: Service Date/Time: Saturday, August 26, 2017 08:05 - CONCLUSION: Skull fracture on the right focal bone within the encephalomalacic changes both orbitofrontal regions. Small 9 mm right subdural hygroma I have no prior studies for comparison. Due to the exists? Flaco Razo MD FACR Chest X-Ray 08/25/17 0000 Signed Impressions: Service Date/Time: Friday, August 25, 2017 19:34 - CONCLUSION: 1. Basilar airspace disease, right greater the left. Differential diagnosis includes pneumonia and atelectasis/aspiration. Virgilio Wilhelm MD Objective Remarks GENERAL: This is a well-nourished, well-developed patient, in no apparent distress. CARDIOVASCULAR: Regular rate and regular rhythm without murmurs, gallops, or rubs. RESPIRATORY: Clear to auscultation. Breath sounds equal bilaterally. No wheezes , rales, or rhonchi. GASTROINTESTINAL: Abdomen soft, non-tender, nondistended. Normal, active bowel sounds MUSCULOSKELETAL: Extremities without clubbing, cyanosis, or edema. NEURO: lethargic but easily arousable. Medications and IVs Inpatient Medications Acetaminophen (Tylenol) 650 mg Q6H PRN PO PAIN 1-3 OR FEVER >101 Last administered on 09/02/17at 00:00; Start 08/25/17 at 19:30 Albuterol Sulfate (Albuterol Neb) 2.5 mg Q2HR NEB PRN NEB WHEEZING; Start at 08:45 Albuterol/ Ipratropium (Duoneb Neb) 1 ampule Q6HR NEB NEB Last administered on 08/29/17at 08:49; Start 08/26/17 at 10:00; Stop 08/29/17 at 10:21; Status DC Bisacodyl (Dulcolax Supp) 10 mg DAILY PRN RECTAL SEVERE CONSITIPATION Last administered on 09/01/17at 17:48; Start 08/25/17 at 19:30 Chlordiazepoxide (Librium) 10 mg BID PO Last administered on 09/03/17 09:47; Start 09/02/17 at 21:00 Chlorhexidine Gluconate (Chlorhexidine 2% Cloth) 3 pack UNSCH PRN TOP HYGIENIC CARE; Start 08/25/17 at 19:30 Clonidine (Catapres) 0.1 mg Q8HR PO Last administered on 09/03/17at 05:05; Start 08/26/17 at 14:00 Dexmedetomidine HCl 1000 mcg/ Sodium Chloride 250 ml @ 4.87 mls/hr TITRATE PRN IV SEDATION Last administered on 08/26/17 00:17; Start 08/25/17 at 23:59; Stop 08/26/17 at 11:17; Status DC Dexmedetomidine HCl 200 mcg/ Sodium Chloride 52 ml @ 5.06 mls/hr TITRATE PRN IV SEDATION Last administered on 08/25/17 21:52; Start 08/25/17 at 18:45; Stop at 23:48; Status DC Divalproex Sodium (Depakote Dr) 500 mg BID PO Last administered on 09/03/17 09 :48; Start 08/26/17 at 09:00 Enoxaparin Sodium (Lovenox Inj) 40 mg Q24H SQ Last administered on 09/02/17 12 :00; Start 08/26/17 at 12:00 Famotidine (Pepcid Inj) 20 mg Q12HR IV PUSH Last administered on 08/25/17 20:09 ; Start 08/25/17 at 21:00; Stop 08/26/17 at 11:17; Status DC Famotidine (Pepcid) 20 mg Q12HR PO Last administered on 09/03/17 09:47; Start 08/25/17 at 21:00 Folic Acid (Folate) 1 mg DAILY PO Last administered on 09/03/17 09:48; Start 08/29/17 at 10:30 Haloperidol Lactate (Haldol Inj) 4 mg Q4H PRN IV agitation Last administered on 09/02/17 23:27; Start 08/26/17 at 11:30 Labetalol HCl (Trandate Inj) 10 mg Q1HR PRN IV PUSH SBP>150, DBP>90, HR>65 Last administered on 08/28/17 21:04; Start 08/26/17 at 20:00 Lactulose (Lactulose Liq) 30 ml DAILY PRN PO SEVERE CONSITIPATION Last administered on 09/01/17 13:11; Start 08/25/17 at 19:30 Lorazepam (Ativan Inj) 2 mg Q4H PRN IV PUSH agitation Last administered on 04:36; Start 08/26/17 at 16:30 Magnesium Hydroxide (Milk Of Magnesia Liq) 30 ml DAILY PRN PO MILD CONSTIPATION Last administered on 08/29/17 00:56; Start 08/28/17 at 12:15 Miscellaneous Information 1 Q361D XX Last administered on 08/25/17 19:30; Start 08/25/17 at 19:30 Multivitamins (Theragran) 1 tab DAILY PO Last administered on 09/03/17 09:47; Start 08/29/17 at 10:30 Nicardipine HCl 25 mg/Sodium Chloride 250 ml @ 50 mls/hr TITRATE PRN IV Blood pressure management Last administered on 08/26/17 22:59; Start 08/26/17 at 20:00 Ondansetron HCl (Zofran Inj) 4 mg Q6H PRN IV PUSH NAUSEA OR VOMITING Last administered on 08/27/17 09:14; Start 08/25/17 at 19:30 Quetiapine Fumarate (SEROquel) 50 mg Q8H PO Last administered on 09/03/17 09: 48; Start 08/26/17 at 17:00 Senna/Docusate Sodium (Elena-Colace) 1 tab BID PO Last administered on 09:48; Start 08/25/17 at 21:00 Sennosides (Senokot) 17.2 mg Q12H PRN PO Moderate constipation; Start 08/25/17 at 19:30 Sodium Chloride (NS Flush) 2 ml BID IV FLUSH Last administered on 09/03/17 09: 47; Start 08/25/17 at 21:00 Thiamine HCl (Vitamin B1) 100 mg DAILY PO Last administered on 09/03/17 09:48 ; Start 08/29/17 at 10:30 A/P Assessment and Plan A/P TBI Nondisplaced frontal bone fracture Left frontal subdural hematoma Left frontal subarachnoid hemorrhage Punctate frontal lobe hemorrhagic contusions Agitated delirium Alcohol dependence CT 08/26 Skull fracture on the right, encephalomalacia both orbitofrontal regions. Small 9 mm right subdural hygroma. Dr. Lobo consulted CT Scans were performed at outside hospital 08/14, 08/15, 08/16. CT brain 08/14 - linear nondisplaced frontal bone fracture. Punctate hemorrhagic contusions Inferior frontal lobes. Subdural blood along tentorium and small left frontal subdural hematoma 12 x 4 mm. Bilateral frontal subarachnoid hemorrhage Follow-up CT 08/15 was stable. Follow-up CT 08/16 Stable hemorrhagic contusions and subarachnoid hemorrhage. Subdural blood along the left frontal lobe was no longer apparent. EEG with no focal or diffuse abnormality. Suspect ongoing impulsivity largely related to frontal lobe involvement, though prior hospital course has been complicated by DTs. Continue Seroquel . will continue to taper down librium. on clonidine 0.1 mg every 8 hours. Use Ativan as needed. Continue Depakote Thiamine/folic acid/MVI daily. PT/OT/speech therapy for cognitive, swallow evaluation COPD Suspected obstructive sleep apnea Tobacco abuse Was on BiPAP at OSH for suspected sleep apnea, will continue Continue nicotine patch continue neb treatment. Hypertension Monitor hemodynamics Obesity Hepatic steatosis Cleared by speech, start regular diet Thrombocytosis, reactive Monitor CBC DVT prophylaxis with subq Lovenox ( ok with neurosurgery). Discharge Planning dc planning; rehab when off restraints. Rachel Leblanc MD Sep 03, 2017 11:11
--- NOTE | 2017-09-03 12:26 | HHI.PR ---
Neuropsych Behavior Behavior: Mild: Impulsive/Agitated Cognitive Cognitive: Moderate: Cognitive, Attention/Concentration, Confused/Orientation, Insight/Awareness, Judgement/Problem-Solving, Memory Progress Notes/Response to Tx Contents of Sessions: Adjustment, Level of Consciousness Time with Patient: 15 minutes Premorbid psychological status Premorbid Cognitive, Emotional and Behavioral Status: Tenuous. The patient has high school years of education and a solid work history prior to this injury. The patient has questionable psychiatric difficulties, as described above. Substance abuse history is significant. Behavioral Reactions of Patient and Family/Support System: Stable. The patients family is experiencing ongoing issues of adjustment given the nature of the injury, and this aspect of recovery will require ongoing monitoring. Emotional/Behavioral Status of Patient and Family/Support System: Stable. Pertinent issues, if appropriate to this patients clinical care, are described in detail above. Maximizing acute care outcome It is recommended that the patient be monitored for emergent behavioral impulsivity as the medical condition evolves. This patients neuropathological challenges may limit his rehabilitation potential going forward, and these challenges will require specialized therapeutic skills to maximize outcome. Additionally, the patients family is experiencing ongoing issues of adjustment given the traumatic nature of the injury, and they may benefit from ongoing psychological assistance. At this point in the recovery process, the patient does not have cognitive capacity as the patient is unable to understand a situation and its likely consequences, nor is he able to manipulate information rationally. Cognitive capacity will be assessed throughout the recovery process. I ordered the Agitated Behavior Scale to monitor his present level of agitation and from which we can monitor the effectiveness of any intervention. His ABS presently is 29 (38.5, 21, 18.6) which falls solidly within the moderate to severely agitated range. This intervention will be conducted each nursing shift. I discussed suggestions for pharmacological management with director of food and nutrition services. Anticipated Problems Ongoing areas of concern will include behavioral impulsivity, lack of insight and judgment, which is expected to improve with time and treatment. Presently , the patient quite agitated. Given the severity of the patient's injuries it is my clinical opinion that this patient will be unable to return to any type of productive employment for at least one year, perhaps longer and likely never. This patient is not considered safe to discharge home without supervision. Treatment Plan This clinician will continue to follow with you throughout the course of this patients critical care treatment, and I will be available to meet with the patients family/support system to facilitate their understanding and the ongoing care of their family member. The goals of neuropsychological intervention shall be both educational and supportive to the family/support system as is deemed clinically appropriate. 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 Diagnosis: (1) Major neurocognitive disorder as late effect of traumatic brain injury with behavioral disturbance Status: Acute (2) Alcohol dependence in controlled environment Status: Acute (3) Alcohol withdrawal delirium Progress Note Narrative PTD 21, but admission for 9 days. The patient remains restless, in four point restraints, quite confused. He continues to receive benzos which is known to cause confusion in persons with TBI. Hospitalist service is following this patient, and as such I will sign off. Please feel free to reconsult if additional concerns regarding neurobehavioral recovery following TBI. Matt Oliveros PhD Sep 03, 2017 12:26 pm
[2017-09-03] MEDS: ENOXAPARIN SODIUM 40 MG/0.4 ML SYRINGE SQ SCH (12:37)
[2017-09-03] MEDS: LORazepam 2 MG/ML VIAL IV PUSH PRN (16:30)
--- NOTE | 2017-09-03 17:04 | RADRPT ---
EXAM DATE/TIME: 09/03/2017 16:42 [place] COMPARISON: None. INDICATIONS : <<Histor of subdural,altered mental status>> RADIATION DOSE: <<66.34>> CTDIvol (mGy) MEDICAL HISTORY : Hypertension. Chronic obstructive pulmonary disease. Head trauma SURGICAL HISTORY : None. ENCOUNTER: Initial ACUITY: 1 day PAIN SCALE: 3/10 LOCATION: cranial TECHNIQUE: Multiple contiguous axial images were obtained of the head. Using automated exposure control and adj ustment of the mA and/or kV according to patient size, radiation dose was kept as low as reasonably a chievable to obtain optimal diagnostic quality images. DICOM format image data is available electro nically for review and comparison. FINDINGS: There is evolving encephalomalacia in both frontal lobes. There is a right-sided subdural hygroma rosie suring up to about 9 mm in diameter which on CT appears slightly more prominent than on August 26. There is a right frontal bone nondisplaced skull fracture. CONCLUSION: 1. 9 mm right subdural hygroma without significant shift as above. Encephalomalacia in the orbitofron saulo regions bilaterally. Nondisplaced right frontal skull fracture. Virgilio Wilhelm MD on September 03, 2017 at 16:58 Board Certified Radiologist. This report was verified electronically.
[2017-09-04 00:31] VITALS: BP 128/88; PULSE 97; RESP 18; TEMP 97.2; O2SAT 97
[2017-09-04] MEDS: QUEtiapine FUMARATE 25 MG TAB PO SCH ×3 (00:50→16:45)
[2017-09-04 05:37] VITALS: BP 116/76; PULSE 95; RESP 18; TEMP 97.1; O2SAT 97
[2017-09-04] MEDS: cloNIDine HCL 0.1 MG TAB PO SCH ×3 (05:37→21:36)
[2017-09-04 08:04] VITALS: BP 127/87; PULSE 104; RESP 20; TEMP 97.8; O2SAT 96; O2SAT 97
[2017-09-04] MEDS: DIVALPROEX DR 500 MG TABEC PO SCH ×2 (09:00→21:44)
[2017-09-04] MEDS: MULTIVITAMIN TAB PO SCH (09:00)
[2017-09-04] MEDS: DOCUSATE SODIUM 50 MG/SENNA 8.6 MG TAB PO SCH ×2 (09:01→21:00)
[2017-09-04] MEDS: SODIUM CHLORIDE 0.9% FLUSH 10 ML FLUSH IV FLUSH SCH ×2 (09:01→21:36)
[2017-09-04] MEDS: FAMOTIDINE 20 MG TAB PO SCH ×2 (09:01→21:36)
[2017-09-04] MEDS: FOLIC ACID 1 MG TAB PO SCH (09:01)
[2017-09-04] MEDS: THIAMINE HCL 100 MG TAB PO SCH (09:01)
--- NOTE | 2017-09-04 10:06 | PD.PSY.CON ---
Provisional Diagnosis Admission Date Aug 25, 2017 at 18:10 [place] I. Delirium due to another medical condition, major neurocognitive disorder secondary to TBI, alcohol use disorder Conway II. Deferred [place] III. COPD, hypertension History of Present Illness Service Psychiatry Consult Requested By Medical team Reason for Consult Disorganized and aggressive behavior Primary Care Physician Unknown HPI The patient is 46 year-old man, domiciled in [place], , 3 kids, unemployed at the moment, without no previous psychiatric history, no suicidal attempts, no prepsychotic hospitalizations, he has history of alcohol and amphetamine use disorder, medical history of COPD of hypertension, who was transferred from [facility] in [facility]. Patient is hospitalized due to TBI, Nondisplaced frontal bone fracture, Left frontal subdural hematoma, Left frontal subarachnoid hemorrhage, Punctate frontal lobe hemorrhagic contusions, Agitated delirium. Patient was consulted to psychiatry due to persistent stage of agitation, aggressive and disorganized behavior. On psychiatric evaluation today patient is restrained in upper extremities, sedated , poorly cooperative. The patient is very confused, patient states that he is in [place], in order to answer question he has to be redirected multiple times , however, he is unable to provide any meaningful information for the psychiatric assessment. He is completely disoriented, disorganized, with no contact with the reality. However, I got in contact with his ex-, Tiarra Flores, , who reports that the patient does not have any previous psychiatric history, he does not have any prior psychiatric hospitalizations, she says that in the past he has history of drug use, and he has been a heavy alcohol and nicotine user for a long time. As far as she knows the patient had never tried to commit suicide in the past, never been psychotic or depressed. Review of Systems ROS Limitations: Altered Mental Status, Unresponsive, Uncooperative Constitutional: DENIES: Diaphoretic episodes, Fatigue, Fever, Weight gain, Weight loss, Chills, Dizziness, Change in appetite, Night Sweats Endocrine: DENIES: Heat/cold intolerance, Polydipsia, Polyuria, Polyphagia Past Family Social History Coded Allergies: No Known Allergies (Unverified , 08/25/17) Current Medications Medications (Trade) Dose Ordered Sig/Alfa Route Start Time Stop Time Status Last Admin (NS Flush) 2 ml UNSCH PRN IV FLUSH 08/25/17 19:30 08/29/17 00:50 (NS Flush) 2 ml BID IV FLUSH 08/25/17 21:00 09/04/17 09:01 (Tylenol) 650 mg Q6H PRN PO 08/25/17 19:30 09/02/17 00:00 (Pepcid) 20 mg Q12HR PO 08/25/17 21:00 09/04/17 09:01 (Zofran Inj) 4 mg Q6H PRN IV PUSH 08/25/17 19:30 08/27/17 09:14 Miscellaneous Information 1 Q361D XX 08/25/17 19:30 08/25/17 19:30 (Chlorhexidine 2% Cloth) Taper DAILY@04 TOP 08/26/17 04:00 08/22/18 03:59 08/29/17 21:04 (Chlorhexidine 2% Cloth) 3 pack UNSCH PRN TOP 08/25/17 19:30 (Elena-Colace) 1 tab BID PO 08/25/17 21:00 09/04/17 09:01 (Milk Of Magnesia Liq) 30 ml Q12H PRN PO 08/25/17 19:30 08/31/17 06:43 (Senokot) 17.2 mg Q12H PRN PO 08/25/17 19:30 (Dulcolax Supp) 10 mg DAILY PRN RECTAL 08/25/17 19:30 09/01/17 17:48 (Lactulose Liq) 30 ml DAILY PRN PO 08/25/17 19:30 09/01/17 13:11 (Depakote Dr) 500 mg BID PO 08/26/17 09:00 09/04/17 09:00 (Albuterol Neb) 2.5 mg Q2HR NEB PRN NEB 08/26/17 08:45 (SEROquel) 50 mg Q8H PO 08/26/17 17:00 09/04/17 09:01 (Haldol Inj) 4 mg Q4H PRN IV 08/26/17 11:30 09/02/17 23:27 (Catapres) 0.1 mg Q8HR PO 08/26/17 14:00 09/04/17 05:37 (Lovenox Inj) 40 mg Q24H SQ 08/26/17 12:00 09/03/17 12:37 (Ativan Inj) 2 mg Q4H PRN IV PUSH 08/26/17 16:30 09/03/17 16:30 (Trandate Inj) 10 mg Q1HR PRN IV PUSH 08/26/17 20:00 08/28/17 21:04 Nicardipine HCl 25 mg/Sodium Chloride 250 ml @ 50 mls/hr TITRATE PRN IV 08/26/17 20:00 08/26/17 22:59 (Milk Of Magnkenyon Liq) 30 ml DAILY PRN PO 08/28/17 12:15 08/29/17 00:56 (Vitamin B1) 100 mg DAILY PO 08/29/17 10:30 09/04/17 09:01 (Theragran) 1 tab DAILY PO 08/29/17 10:30 09/04/17 09:00 (Folate) 1 mg DAILY PO 08/29/17 10:30 09/04/17 09:01 (Librium) 10 mg BID PO 09/02/17 21:00 09/04/17 09:00 Family Psych History No family psychiatric history Social History Patient was born and raised in [place], he lives in [place], he is , has 3 kids, unemployed at the moment, his highest level of the patient is a college degree Patient's Strengths (min. 2) Family support, no previous psychiatric history Physical Exam Vital Signs Vital Signs Date Time Temp Pulse Resp B/P (MAP) Pulse Ox O2 Delivery O2 Flow Rate FiO2 09/04/17 08:04 97.8 104 20 127/87 (100) 97 Mental Status Examination Appearance: Disheveled Consciousness: Lethargic, Clouded Motor Activity: Abnormal gait Suicidal Ideation: No Suicidal Plan: No Suicidal Intention: No Homicidal Ideation: No Insight: Poor Judgment: Poor Mental Status Exam Remarks Limited due to the level of sedation and AMS Assessment & Plan Problem List: (1) Major neurocognitive disorder as late effect of traumatic brain injury with behavioral disturbance ICD Codes: S06.9X9S - Unspecified intracranial injury with loss of consciousness of unspecified duration, sequela; F02.81 - Dementia in other diseases classified elsewhere with behavioral disturbance Status: Acute (2) Delirium due to another medical condition ICD Codes: F05 - Delirium due to known physiological condition Assessment & Plan: Patient continues to be delirious, disorganized, unable to provide any significant information for the psychiatric assessment at this moment. Patient has been reportedly combative, disorganized, agitated, he has needed multiple ETOs with Haldol and Ativan. She does not have any previous psychiatric hospitalization as per family members, no previous psychiatric history. Obviously, current presentation is most probably related with his TBI and he could be exacerbated by alcohol withdrawal. Order Depakote Levels. Order EKG to monitor QTC. Increase haldol 5 mg im Q8 PRN severe agitation. Continue Seroquel 50 bid, Depakote 500 mg for impulse control and behavioral dysregulation. Continue Taper down of Benzos for alcohol withdrawal, but consider limiting benzos/anticholinergics as much as possible at this point, o avoid further cognitive impairment and paradoxical agitation/aggression. If current behavior persist beyond medical clearance, patient might benefit of psychiatric admission for stabilization and safety. I will keep in contact with Dr. Glasgow for further coordination of medical management. Assessment & Plan Estimated LOS: days Ran Arteaga MD Sep 04, 2017 10:06
--- NOTE | 2017-09-04 10:22 | HHI.PR ---
Subjective Remarks in no acute distress. awake but confused. still on restraints. Objective Vitals Vital Signs Date Time Temp Pulse Resp B/P (MAP) Pulse Ox O2 Delivery O2 Flow Rate FiO2 09/04/17 08:04 97.8 104 20 127/87 (100) 97 09/04/17 05:37 97.1 95 18 116/76 (89) 97 09/04/17 00:31 97.2 97 18 128/88 (101) 97 09/03/17 20:54 98.1 100 18 144/102 (116) 98 09/03/17 16:36 97.6 104 18 145/73 (97) 98 09/03/17 12:15 98.1 94 18 97/70 (79) 94 I/O 09/03/17 09/03/17 09/03/17 09/04/17 09/04/17 09/04/17 07:00 15:00 23:00 07:00 15:00 23:00 Intake Total 240 ml Output Total 250 ml Balance 240 ml -250 ml Intake Oral 240 ml Output Urine Total 250 ml Result Diagram: 09/02/17 0736 09/02/17 0736 Imaging Last Impressions Head CT 09/03/17 0000 Signed Impressions: Service Date/Time: Sunday, September 03, 2017 16:42 - CONCLUSION: 1. 9 mm right subdural hygroma without significant shift as above. Encephalomalacia in the orbitofrontal regions bilaterally. Nondisplaced right frontal skull fracture. Virgilio Wilhelm MD Chest X-Ray 08/25/17 0000 Signed Impressions: Service Date/Time: Friday, August 25, 2017 19:34 - CONCLUSION: 1. Basilar airspace disease, right greater the left. Differential diagnosis includes pneumonia and atelectasis/aspiration. Virgilio Wilhelm MD Objective Remarks GENERAL: This is a well-nourished, well-developed patient, in no apparent distress. CARDIOVASCULAR: Regular rate and regular rhythm without murmurs, gallops, or rubs. RESPIRATORY: Clear to auscultation. Breath sounds equal bilaterally. No wheezes , rales, or rhonchi. GASTROINTESTINAL: Abdomen soft, non-tender, nondistended. Normal, active bowel sounds MUSCULOSKELETAL: Extremities without clubbing, cyanosis, or edema. NEURO: lethargic but easily arousable. Medications and IVs Inpatient Medications Acetaminophen (Tylenol) 650 mg Q6H PRN PO PAIN 1-3 OR FEVER >101 Last administered on 09/02/17at 00:00; Start 08/25/17 at 19:30 Albuterol Sulfate (Albuterol Neb) 2.5 mg Q2HR NEB PRN NEB WHEEZING; Start at 08:45 Albuterol/ Ipratropium (Duoneb Neb) 1 ampule Q6HR NEB NEB Last administered on 08/29/17at 08:49; Start 08/26/17 at 10:00; Stop 08/29/17 at 10:21; Status DC Bisacodyl (Dulcolax Supp) 10 mg DAILY PRN RECTAL SEVERE CONSITIPATION Last administered on 09/01/17at 17:48; Start 08/25/17 at 19:30 Chlordiazepoxide (Librium) 10 mg BID PO Last administered on 09/04/17at 09:00; Start 09/02/17 at 21:00 Chlorhexidine Gluconate (Chlorhexidine 2% Cloth) 3 pack UNSCH PRN TOP HYGIENIC CARE; Start 08/25/17 at 19:30 Clonidine (Catapres) 0.1 mg Q8HR PO Last administered on 09/04/17 05:37; Start 08/26/17 at 14:00 Dexmedetomidine HCl 1000 mcg/ Sodium Chloride 250 ml @ 4.87 mls/hr TITRATE PRN IV SEDATION Last administered on 08/26/17 00:17; Start 08/25/17 at 23:59; Stop 08/26/17 at 11:17; Status DC Dexmedetomidine HCl 200 mcg/ Sodium Chloride 52 ml @ 5.06 mls/hr TITRATE PRN IV SEDATION Last administered on 08/25/17 21:52; Start 08/25/17 at 18:45; Stop at 23:48; Status DC Divalproex Sodium (Depakote Dr) 500 mg BID PO Last administered on 09/04/17at 09 :00; Start 08/26/17 at 09:00 Enoxaparin Sodium (Lovenox Inj) 40 mg Q24H SQ Last administered on 09/03/17at 12 :37; Start 08/26/17 at 12:00 Famotidine (Pepcid Inj) 20 mg Q12HR IV PUSH Last administered on 08/25/17 20:09 ; Start 08/25/17 at 21:00; Stop 08/26/17 at 11:17; Status DC Famotidine (Pepcid) 20 mg Q12HR PO Last administered on 09/04/17 09:01; Start 08/25/17 at 21:00 Folic Acid (Folate) 1 mg DAILY PO Last administered on 09/04/17 09:01; Start 08/29/17 at 10:30 Haloperidol Lactate (Haldol Inj) 5 mg Q4H PRN IM agitation; Start 09/04/17 at 11:30 Labetalol HCl (Trandate Inj) 10 mg Q1HR PRN IV PUSH SBP>150, DBP>90, HR>65 Last administered on 08/28/17 21:04; Start 08/26/17 at 20:00 Lactulose (Lactulose Liq) 30 ml DAILY PRN PO SEVERE CONSITIPATION Last administered on 09/01/17 13:11; Start 08/25/17 at 19:30 Lorazepam (Ativan Inj) 2 mg Q4H PRN IV PUSH agitation Last administered on 09/03 16:30; Start 08/26/17 at 16:30 Magnesium Hydroxide (Milk Of Magnesia Liq) 30 ml DAILY PRN PO MILD CONSTIPATION Last administered on 08/29/17 00:56; Start 08/28/17 at 12:15 Miscellaneous Information 1 [id number] XX Last administered on 08/25/17 19:30; Start 08/25/17 at 19:30 Multivitamins (Theragran) 1 tab DAILY PO Last administered on 09/04/17 09:00; Start 08/29/17 at 10:30 Nicardipine HCl 25 mg/Sodium Chloride 250 ml @ 50 mls/hr TITRATE PRN IV Blood pressure management Last administered on 08/26/17 22:59; Start 08/26/17 at 20:00 Ondansetron HCl (Zofran Inj) 4 mg Q6H PRN IV PUSH NAUSEA OR VOMITING Last administered on 08/27/17 09:14; Start 08/25/17 at 19:30 Quetiapine Fumarate (SEROquel) 50 mg Q8H PO Last administered on 3/14/18at 09: 01; Start 08/26/17 at 17:00 Senna/Docusate Sodium (Elena-Colace) 1 tab BID PO Last administered on at 09:01; Start 08/25/17 at 21:00 Sennosides (Senokot) 17.2 mg Q12H PRN PO Moderate constipation; Start 08/25/17 at 19:30 Sodium Chloride (NS Flush) 2 ml BID IV FLUSH Last administered on 09/04/17at 09: 01; Start 08/25/17 at 21:00 Thiamine HCl (Vitamin B1) 100 mg DAILY PO Last administered on 09/04/17at 09:01 ; Start 08/29/17 at 10:30 A/P Assessment and Plan A/P TBI Nondisplaced frontal bone fracture Left frontal subdural hematoma Left frontal subarachnoid hemorrhage Punctate frontal lobe hemorrhagic contusions Agitated delirium Alcohol dependence CT 08/26 Skull fracture on the right, encephalomalacia both orbitofrontal regions. Small 9 mm right subdural hygroma. Dr. Lobo consulted CT Scans were performed at outside hospital 08/14, 08/15, 08/16. CT brain 08/14 - linear nondisplaced frontal bone fracture. Punctate hemorrhagic contusions Inferior frontal lobes. Subdural blood along tentorium and small left frontal subdural hematoma 12 x 4 mm. Bilateral frontal subarachnoid hemorrhage Follow-up CT 08/15 was stable. Follow-up CT 08/16 Stable hemorrhagic contusions and subarachnoid hemorrhage. Subdural blood along the left frontal lobe was no longer apparent. CT was repeated again on 09/03 with 9 mm right subdural hygroma without significant shift . Encephalomalacia in the orbitofrontal regions bilaterally. EEG with no focal or diffuse abnormality. Suspect ongoing impulsivity largely related to frontal lobe involvement, though prior hospital course has been complicated by DTs. psych consulted; d/w today; continue Seroquel and Depakote; will increase Haldol prn and minimize benzodiazepines. will continue to taper down librium; change to 5 mg po twice daily. Thiamine/folic acid/MVI daily. PT/OT/speech therapy for cognitive, swallow evaluation COPD Suspected obstructive sleep apnea Tobacco abuse Was on BiPAP at OSH for suspected sleep apnea, will continue Continue nicotine patch continue neb treatment. Hypertension Monitor hemodynamics Obesity Hepatic steatosis Cleared by speech, start regular diet Thrombocytosis, reactive Monitor CBC DVT prophylaxis with subq Lovenox ( ok with neurosurgery). Discharge Planning dc planning; rehab when off restraints. Rachel Leblanc MD Sep 04, 2017 10:22
[2017-09-04 11:19] VITALS: BP 130/81; PULSE 91; RESP 20; TEMP 97.7; O2SAT 94
[2017-09-04] MEDS: ENOXAPARIN SODIUM 40 MG/0.4 ML SYRINGE SQ SCH (12:26)
[2017-09-04 16:22] VITALS: BP 135/93; PULSE 111; RESP 20; TEMP 98.3; O2SAT 92
[2017-09-04 21:50] VITALS: BP 120/66; PULSE 68; RESP 20; TEMP 97.7; O2SAT 96
[2017-09-05 00:45] VITALS: BP 139/83; PULSE 88; RESP 20; TEMP 98.1; O2SAT 94
[2017-09-05] MEDS: QUEtiapine FUMARATE 25 MG TAB PO SCH ×4 (01:00→16:26)
[2017-09-05] MEDS: ACETAMINOPHEN 325 MG TAB PO PRN ×2 (04:17→20:43)
[2017-09-05] MEDS: cloNIDine HCL 0.1 MG TAB PO SCH ×3 (05:36→20:53)
[2017-09-05 05:45] VITALS: BP 130/80; PULSE 80; RESP 19; TEMP 97.7; O2SAT 95
[2017-09-05 08:00] VITALS: BP 160/96; PULSE 94; RESP 18; TEMP 97.3; O2SAT 95
[2017-09-05] MEDS: MULTIVITAMIN TAB PO SCH (09:11)
[2017-09-05] MEDS: THIAMINE HCL 100 MG TAB PO SCH (09:11)
[2017-09-05] MEDS: DIVALPROEX DR 500 MG TABEC PO SCH ×2 (09:12→20:39)
[2017-09-05] MEDS: FAMOTIDINE 20 MG TAB PO SCH ×2 (09:12→20:39)
[2017-09-05] MEDS: DOCUSATE SODIUM 50 MG/SENNA 8.6 MG TAB PO SCH ×2 (09:13→20:39)
[2017-09-05] MEDS: SODIUM CHLORIDE 0.9% FLUSH 10 ML FLUSH IV FLUSH SCH ×2 (09:21→21:43)
[2017-09-05] MEDS: FOLIC ACID 1 MG TAB PO SCH (09:21)
[2017-09-05] MEDS: ARTIFICIAL TEARS OPTH SOLN 15 ML BTL EACH EYE PRN ×2 (11:41→16:27)
[2017-09-05] MEDS: ENOXAPARIN SODIUM 40 MG/0.4 ML SYRINGE SQ SCH (11:42)
[2017-09-05] MEDS: HALOPERIDOL LACTATE 5 MG/ML AMP IM PRN ×2 (11:43→22:06)
--- NOTE | 2017-09-05 12:58 | HHI.PR ---
Subjective Remarks Patient continues to be very impulsive requiring restraint. Discussed with his mother at bedside. She would like him to be out of bed more. Objective Vitals Vital Signs Date Time Temp Pulse Resp B/P (MAP) Pulse Ox O2 Delivery O2 Flow Rate FiO2 09/05/17 08:00 97.3 94 18 160/96 (117) 95 09/05/17 05:45 97.7 80 19 130/80 (97) 95 09/05/17 00:45 98.1 88 20 139/83 (101) 94 09/04/17 21:50 97.7 68 20 120/66 (84) 96 09/04/17 16:22 98.3 111 20 135/93 (107) 92 I/O 09/04/17 09/04/17 09/04/17 09/05/17 09/05/17 09/05/17 07:00 15:00 23:00 07:00 15:00 23:00 Intake Total 1000 ml 0 ml Output Total 0 ml Balance 1000 ml 0 ml Intake Oral 1000 ml 0 ml Output Urine Total 0 ml # Voids 3 4 # Bowel Movements 0 0 Result Diagram: 09/02/17 0736 09/02/17 0736 Objective Remarks GENERAL: Very impulsive and confused. CARDIOVASCULAR: Normal rate and regular rhythm without murmurs, gallops, or rubs. RESPIRATORY: Breath sounds equal and clear to auscultation bilaterally. GASTROINTESTINAL: Abdomen soft, non-tender, non-distended. Normal active bowel sounds MUSCULOSKELETAL: Extremities without cyanosis, or edema. NEURO: Awake, right facial droop. Impulsive. Confused. PSYCH: Impulsive A/P Assessment and Plan 46-year-old male with: TBI Nondisplaced frontal bone fracture Left frontal subdural hematoma Left frontal subarachnoid hemorrhage Punctate frontal lobe hemorrhagic contusions Agitated delirium Alcohol dependence CT 08/26 Skull fracture on the right, encephalomalacia both orbitofrontal regions. Small 9 mm right subdural hygroma. Dr. Lobo consulted CT Scans were performed at outside hospital 08/14, 08/15, 08/16. CT brain 08/14 - linear nondisplaced frontal bone fracture. Punctate hemorrhagic contusions Inferior frontal lobes. Subdural blood along tentorium and small left frontal subdural hematoma 12 x 4 mm. Bilateral frontal subarachnoid hemorrhage Follow-up CT 08/15 was stable. Follow-up CT 08/16 Stable hemorrhagic contusions and subarachnoid hemorrhage. Subdural blood along the left frontal lobe was no longer apparent. CT was repeated again on 09/03 with 9 mm right subdural hygroma without significant shift . Encephalomalacia in the orbitofrontal regions bilaterally. EEG with no focal or diffuse abnormality. Suspect ongoing impulsivity largely related to frontal lobe involvement, though prior hospital course has been complicated by DTs. psych evaluated the patient; continue Seroquel and Depakote; continue Haldol prn and minimize benzodiazepines. will continue to taper down librium; discontinue Librium today. Thiamine/folic acid/MVI daily. PT/OT/speech therapy COPD Suspected obstructive sleep apnea Tobacco abuse Was on BiPAP at OSH for suspected sleep apnea, will continue Continue nicotine patch continue neb treatment. Hypertension Monitor hemodynamics Thrombocytosis, reactive Monitor CBC DVT prophylaxis with subq Lovenox ( ok with neurosurgery). Discharge Planning Need SNF placement. Continue to wean off restraints as tolerated. UNRULY MOSES. Kathi Devine MD Sep 05, 2017 12:58
[2017-09-05 13:04] VITALS: BP 151/107; PULSE 82; RESP 18; TEMP 97.6; O2SAT 97
[2017-09-05 16:32] VITALS: BP 131/88; PULSE 99; RESP 17; TEMP 97.4; O2SAT 95
[2017-09-05 21:40] VITALS: BP 129/88; PULSE 95; RESP 17; TEMP 97.9; O2SAT 95
[2017-09-06 00:15] VITALS: BP 125/80; PULSE 80; RESP 18; TEMP 98.7; O2SAT 96
[2017-09-06] MEDS: QUEtiapine FUMARATE 25 MG TAB PO SCH ×3 (01:27→16:31)
[2017-09-06 05:30] VITALS: BP 120/67; PULSE 88; RESP 20; TEMP 97.9; O2SAT 98
[2017-09-06] MEDS: cloNIDine HCL 0.1 MG TAB PO SCH ×3 (05:39→20:45)
[2017-09-06 07:44] VITALS: BP 129/88; PULSE 88; RESP 20; TEMP 97.4; O2SAT 95
[2017-09-06] MEDS: SODIUM CHLORIDE 0.9% FLUSH 10 ML FLUSH IV FLUSH SCH ×2 (09:00→20:42)
[2017-09-06] MEDS: FAMOTIDINE 20 MG TAB PO SCH ×2 (09:50→20:42)
[2017-09-06] MEDS: FOLIC ACID 1 MG TAB PO SCH (09:50)
[2017-09-06] MEDS: DOCUSATE SODIUM 50 MG/SENNA 8.6 MG TAB PO SCH ×2 (09:51→20:42)
[2017-09-06] MEDS: THIAMINE HCL 100 MG TAB PO SCH (09:51)
[2017-09-06] MEDS: MULTIVITAMIN TAB PO SCH (09:52)
[2017-09-06] MEDS: DIVALPROEX DR 500 MG TABEC PO SCH ×2 (09:52→20:42)
--- NOTE | 2017-09-06 11:31 | HHI.PR ---
Subjective Remarks Patient remains impulsive and requiring restraints. Objective Vitals Vital Signs Date Time Temp Pulse Resp B/P (MAP) Pulse Ox O2 Delivery O2 Flow Rate FiO2 09/06/17 07:44 97.4 88 20 129/88 (102) 95 09/06/17 05:30 97.9 88 20 120/67 (84) 98 09/06/17 00:15 98.7 80 18 125/80 (95) 96 09/05/17 21:40 97.9 95 17 129/88 (102) 95 09/05/17 16:32 97.4 99 17 131/88 (102) 95 09/05/17 13:04 97.6 82 18 151/107 (122) 97 I/O 09/05/17 09/05/17 09/05/17 09/06/17 09/06/17 09/06/17 07:00 15:00 23:00 07:00 15:00 23:00 Intake Total 0 ml 600 ml Output Total 1000 ml Balance 0 ml -400 ml Intake Oral 0 ml 600 ml Output Urine Total 1000 ml # Voids 4 # Bowel Movements 0 0 Result Diagram: 09/02/17 0736 09/02/17 0736 Objective Remarks GENERAL: Very impulsive and confused. CARDIOVASCULAR: Normal rate and regular rhythm without murmurs, gallops, or rubs. RESPIRATORY: Breath sounds equal and clear to auscultation bilaterally. GASTROINTESTINAL: Abdomen soft, non-tender, non-distended. Normal active bowel sounds MUSCULOSKELETAL: Extremities without cyanosis, or edema. NEURO: Awake, right facial droop. Impulsive. Confused. PSYCH: Impulsive A/P Assessment and Plan 46-year-old male with: TBI Nondisplaced frontal bone fracture Left frontal subdural hematoma Left frontal subarachnoid hemorrhage Punctate frontal lobe hemorrhagic contusions Agitated delirium Alcohol dependence CT 08/26 Skull fracture on the right, encephalomalacia both orbitofrontal regions. Small 9 mm right subdural hygroma. Dr. Lobo consulted CT Scans were performed at outside hospital 08/14, 08/15, 08/16. CT brain 08/14 - linear nondisplaced frontal bone fracture. Punctate hemorrhagic contusions Inferior frontal lobes. Subdural blood along tentorium and small left frontal subdural hematoma 12 x 4 mm. Bilateral frontal subarachnoid hemorrhage Follow-up CT 08/15 was stable. Follow-up CT 08/16 Stable hemorrhagic contusions and subarachnoid hemorrhage. Subdural blood along the left frontal lobe was no longer apparent. CT was repeated again on 09/03 with 9 mm right subdural hygroma without significant shift . Encephalomalacia in the orbitofrontal regions bilaterally. EEG with no focal or diffuse abnormality. Suspect ongoing impulsivity largely related to frontal lobe involvement, though prior hospital course has been complicated by DTs. psych evaluated the patient; continue Seroquel and Depakote; continue Haldol prn and minimize benzodiazepines. will continue to taper down librium; discontinue Librium today. Thiamine/folic acid/MVI daily. PT/OT/speech therapy Continue to manage impulsive behavior. Hard to say what prognosis will be given underlying condition. COPD Suspected obstructive sleep apnea Tobacco abuse Was on BiPAP for suspected sleep apnea, will continue Continue nicotine patch continue neb treatment. Hypertension Monitor hemodynamics Thrombocytosis, reactive Monitor CBC DVT prophylaxis with subq Lovenox ( ok with neurosurgery). Discharge Planning Need SNF placement. Continue to wean off restraints as tolerated. UNRULY MOSES. Kathi Devine MD Sep 06, 2017 11:31
[2017-09-06 12:12] VITALS: BP 151/91; PULSE 100; RESP 20; TEMP 97.7; O2SAT 96
[2017-09-06] MEDS: ENOXAPARIN SODIUM 40 MG/0.4 ML SYRINGE SQ SCH (13:04)
[2017-09-06 15:38] VITALS: BP 122/84; PULSE 96; RESP 20; TEMP 98; O2SAT 94
[2017-09-06] MEDS: HALOPERIDOL LACTATE 5 MG/ML AMP IM PRN ×2 (16:51→22:11)
[2017-09-06 20:51] VITALS: BP 137/95; PULSE 98; RESP 18; TEMP 97.8; O2SAT 95
[2017-09-07 00:58] VITALS: BP 142/90; PULSE 92; RESP 18; TEMP 98.2; O2SAT 98
[2017-09-07] MEDS: QUEtiapine FUMARATE 25 MG TAB PO SCH ×3 (01:00→17:00)
[2017-09-07 05:11] VITALS: BP 139/94; PULSE 95; RESP 17; TEMP 98.6; O2SAT 98
[2017-09-07] MEDS: cloNIDine HCL 0.1 MG TAB PO SCH ×3 (05:45→20:29)
[2017-09-07] MEDS: HALOPERIDOL LACTATE 5 MG/ML AMP IM PRN ×3 (07:32→20:43)
[2017-09-07 08:06] VITALS: BP 121/96; PULSE 106; RESP 20; TEMP 97.3; O2SAT 96
[2017-09-07] MEDS: SODIUM CHLORIDE 0.9% FLUSH 10 ML FLUSH IV FLUSH SCH ×2 (09:00→20:28)
[2017-09-07] MEDS: DOCUSATE SODIUM 50 MG/SENNA 8.6 MG TAB PO SCH ×2 (09:08→20:29)
[2017-09-07] MEDS: MULTIVITAMIN TAB PO SCH (09:08)
[2017-09-07] MEDS: FOLIC ACID 1 MG TAB PO SCH (09:08)
[2017-09-07] MEDS: FAMOTIDINE 20 MG TAB PO SCH ×2 (09:09→20:29)
[2017-09-07] MEDS: THIAMINE HCL 100 MG TAB PO SCH (09:11)
[2017-09-07] MEDS: DIVALPROEX DR 500 MG TABEC PO SCH ×2 (09:13→20:29)
[2017-09-07 11:58] VITALS: BP 147/100; PULSE 106; RESP 20; TEMP 97.6; O2SAT 97
[2017-09-07] MEDS: ENOXAPARIN SODIUM 40 MG/0.4 ML SYRINGE SQ SCH (12:06)
[2017-09-07 15:44] VITALS: BP 129/94; PULSE 100; RESP 20; TEMP 97.4; O2SAT 93
--- NOTE | 2017-09-07 16:34 | HHI.PR ---
Subjective Remarks Patient continues to be impulsive and requiring restraints. No new issues. Objective Vitals Vital Signs Date Time Temp Pulse Resp B/P (MAP) Pulse Ox O2 Delivery O2 Flow Rate FiO2 09/07/17 15:44 97.4 100 20 129/94 (106) 93 09/07/17 11:58 97.6 106 20 147/100 (116) 97 09/07/17 08:06 97.3 106 20 121/96 (104) 96 09/07/17 05:11 98.6 95 17 139/94 (109) 98 09/07/17 00:58 98.2 92 18 142/90 (107) 98 09/06/17 20:51 97.8 98 18 137/95 (109) 95 Manual Cuff/Auscultation I/O 09/06/17 09/06/17 09/06/17 09/07/17 09/07/17 09/07/17 06:59 14:59 22:59 06:59 14:59 22:59 Intake Total 600 ml 660 ml 240 ml Output Total 1000 ml Balance -400 ml 660 ml 240 ml Intake Oral 600 ml 660 ml 240 ml Output Urine Total 1000 ml # Voids 2 2 # Bowel Movements 0 Objective Remarks GENERAL: Very impulsive and confused. CARDIOVASCULAR: Normal rate and regular rhythm without murmurs, gallops, or rubs. RESPIRATORY: Breath sounds equal and clear to auscultation bilaterally. GASTROINTESTINAL: Abdomen soft, non-tender, non-distended. Normal active bowel sounds MUSCULOSKELETAL: Extremities without cyanosis, or edema. NEURO: Awake, right facial droop. Impulsive. Confused. PSYCH: Impulsive A/P Assessment and Plan 46-year-old male with: TBI Nondisplaced frontal bone fracture Left frontal subdural hematoma Left frontal subarachnoid hemorrhage Punctate frontal lobe hemorrhagic contusions Agitated delirium Alcohol dependence CT 08/26 Skull fracture on the right, encephalomalacia both orbitofrontal regions. Small 9 mm right subdural hygroma. Dr. Lobo consulted CT Scans were performed at outside hospital 08/14, 08/15, 08/16. CT brain 08/14 - linear nondisplaced frontal bone fracture. Punctate hemorrhagic contusions Inferior frontal lobes. Subdural blood along tentorium and small left frontal subdural hematoma 12 x 4 mm. Bilateral frontal subarachnoid hemorrhage Follow-up CT 08/15 was stable. Follow-up CT 08/16 Stable hemorrhagic contusions and subarachnoid hemorrhage. Subdural blood along the left frontal lobe was no longer apparent. CT was repeated again on 09/03 with 9 mm right subdural hygroma without significant shift . Encephalomalacia in the orbitofrontal regions bilaterally. EEG with no focal or diffuse abnormality. Suspect ongoing impulsivity largely related to frontal lobe involvement, though prior hospital course has been complicated by DTs. psych evaluated the patient; continue Seroquel and Depakote; continue Haldol prn and minimize benzodiazepines. will continue to taper down librium; discontinue Librium today. Thiamine/folic acid/MVI daily. PT/OT/speech therapy Continue to manage impulsive behavior. Hard to say what prognosis will be given underlying condition. Increase Seroquel to 100 mg Q8H COPD Suspected obstructive sleep apnea Tobacco abuse Was on BiPAP for suspected sleep apnea, will continue Continue nicotine patch continue neb treatment. Hypertension Monitor hemodynamics Thrombocytosis, reactive Monitor CBC DVT prophylaxis with subq Lovenox ( ok with neurosurgery). Discharge Planning Need SNF placement. Continue to wean off restraints as tolerated. Kathi Devine MD Sep 07, 2017 16:33
[2017-09-07 20:00] VITALS: BP 148/102; PULSE 117; RESP 22; TEMP 98.5; O2SAT 94
[2017-09-08] MEDS: QUEtiapine FUMARATE 25 MG TAB PO SCH ×4 (01:00→18:06)
[2017-09-08 01:08] VITALS: BP 144/85; PULSE 104; RESP 20; TEMP 97.6; O2SAT 94
[2017-09-08] MEDS: cloNIDine HCL 0.1 MG TAB PO SCH ×3 (06:30→19:50)
[2017-09-08 06:42] VITALS: BP 153/100; PULSE 112; RESP 20; TEMP 97.7; O2SAT 97
[2017-09-08 08:00] VITALS: BP 125/87; PULSE 118; RESP 19; TEMP 97.6; O2SAT 94
[2017-09-08] MEDS: SODIUM CHLORIDE 0.9% FLUSH 10 ML FLUSH IV FLUSH SCH ×2 (09:00→19:50)
[2017-09-08] MEDS: THIAMINE HCL 100 MG TAB PO SCH (09:00)
[2017-09-08] MEDS: DOCUSATE SODIUM 50 MG/SENNA 8.6 MG TAB PO SCH ×2 (09:30→19:50)
[2017-09-08] MEDS: MULTIVITAMIN TAB PO SCH (09:31)
[2017-09-08] MEDS: DIVALPROEX DR 500 MG TABEC PO SCH ×2 (09:31→19:50)
[2017-09-08] MEDS: FOLIC ACID 1 MG TAB PO SCH (09:31)
[2017-09-08] MEDS: HALOPERIDOL LACTATE 5 MG/ML AMP IM PRN ×3 (09:33→22:01)
[2017-09-08] MEDS: FAMOTIDINE 20 MG TAB PO SCH ×2 (09:33→19:50)
[2017-09-08] MEDS: ENOXAPARIN SODIUM 40 MG/0.4 ML SYRINGE SQ SCH (13:55)
--- NOTE | 2017-09-08 15:40 | HHI.PR ---
Subjective Remarks Patient reports he is doing okay. Still confused. Discussed with RN, he is calmer since the increased dose of Seroquel. However still requiring restraints due to impulsivity. Objective Vitals Vital Signs Date Time Temp Pulse Resp B/P (MAP) Pulse Ox O2 Delivery O2 Flow Rate FiO2 09/08/17 08:00 97.6 118 19 125/87 (100) 94 09/08/17 06:42 97.7 112 20 153/100 (117) 97 09/08/17 01:08 97.6 104 20 144/85 (104) 94 09/07/17 20:00 98.5 117 22 148/102 (117) 94 09/07/17 15:44 97.4 100 20 129/94 (106) 93 I/O 09/07/17 09/07/17 09/07/17 09/08/17 09/08/17 09/08/17 07:00 15:00 23:00 07:00 15:00 23:00 Intake Total 120 ml Balance 120 ml Intake Oral 120 ml # Voids 2 1 Objective Remarks GENERAL: Very impulsive and confused. CARDIOVASCULAR: Normal rate and regular rhythm without murmurs, gallops, or rubs. RESPIRATORY: Breath sounds equal and clear to auscultation bilaterally. GASTROINTESTINAL: Abdomen soft, non-tender, non-distended. Normal active bowel sounds MUSCULOSKELETAL: Extremities without cyanosis, or edema. NEURO: Awake, right facial droop. Impulsive. Confused. PSYCH: Impulsive A/P Assessment and Plan 46-year-old male with: TBI Nondisplaced frontal bone fracture Left frontal subdural hematoma Left frontal subarachnoid hemorrhage Punctate frontal lobe hemorrhagic contusions Agitated delirium Alcohol dependence CT 08/26 Skull fracture on the right, encephalomalacia both orbitofrontal regions. Small 9 mm right subdural hygroma. Dr. Lobo consulted CT Scans were performed at outside hospital 08/14, 08/15, 08/16. CT brain 08/14 - linear nondisplaced frontal bone fracture. Punctate hemorrhagic contusions Inferior frontal lobes. Subdural blood along tentorium and small left frontal subdural hematoma 12 x 4 mm. Bilateral frontal subarachnoid hemorrhage Follow-up CT 08/15 was stable. Follow-up CT 08/16 Stable hemorrhagic contusions and subarachnoid hemorrhage. Subdural blood along the left frontal lobe was no longer apparent. CT was repeated again on 09/03 with 9 mm right subdural hygroma without significant shift . Encephalomalacia in the orbitofrontal regions bilaterally. EEG with no focal or diffuse abnormality. Suspect ongoing impulsivity largely related to frontal lobe involvement, though prior hospital course has been complicated by DTs. psych evaluated the patient; continue Seroquel and Depakote; continue Haldol prn and minimize benzodiazepines. will continue to taper down librium; discontinue Librium today. Thiamine/folic acid/MVI daily. PT/OT/speech therapy Continue to manage impulsive behavior. Somewhat improved. Hard to say what prognosis will be given underlying condition. Continue with increased dose of Seroquel 100 mg Q8H. COPD Suspected obstructive sleep apnea Tobacco abuse Was on BiPAP for suspected sleep apnea, will continue Continue nicotine patch continue neb treatment. Hypertension Monitor hemodynamics Thrombocytosis, reactive Monitor CBC DVT prophylaxis with subq Lovenox ( ok with neurosurgery). Discharge Planning Awaiting SNF placement. Probably needs a closed unit Kathi Devine MD Sep 08, 2017 15:40
[2017-09-08 16:01] VITALS: BP 129/88; PULSE 111; RESP 20; TEMP 98; O2SAT 93
[2017-09-08 20:29] VITALS: BP 141/112; PULSE 107; RESP 18; TEMP 98.7; O2SAT 96
[2017-09-09] MEDS: QUEtiapine FUMARATE 25 MG TAB PO SCH ×4 (01:00→17:35)
[2017-09-09 06:02] VITALS: BP 174/112; PULSE 107; RESP 18; TEMP 98.5; O2SAT 96
[2017-09-09] MEDS: cloNIDine HCL 0.1 MG TAB PO SCH ×3 (06:09→21:52)
[2017-09-09 08:00] VITALS: BP 147/98; PULSE 94; RESP 17; TEMP 97.9; O2SAT 98
[2017-09-09] MEDS: SODIUM CHLORIDE 0.9% FLUSH 10 ML FLUSH IV FLUSH SCH ×2 (09:00→21:00)
[2017-09-09] MEDS: DOCUSATE SODIUM 50 MG/SENNA 8.6 MG TAB PO SCH ×2 (09:09→21:52)
[2017-09-09] MEDS: MULTIVITAMIN TAB PO SCH (09:09)
[2017-09-09] MEDS: FAMOTIDINE 20 MG TAB PO SCH ×2 (09:09→21:52)
[2017-09-09] MEDS: THIAMINE HCL 100 MG TAB PO SCH (09:09)
[2017-09-09] MEDS: FOLIC ACID 1 MG TAB PO SCH (09:10)
[2017-09-09] MEDS: LACTULOSE SYRUP 20 GM/30 ML CUP PO PRN (09:10)
[2017-09-09] MEDS: DIVALPROEX DR 500 MG TABEC PO SCH ×2 (09:10→21:52)
[2017-09-09] MEDS: ENOXAPARIN SODIUM 40 MG/0.4 ML SYRINGE SQ SCH (11:22)
[2017-09-09 13:33] VITALS: BP 146/95; PULSE 92; RESP 17; TEMP 97.9; O2SAT 97
[2017-09-09 16:00] VITALS: BP 134/72; PULSE 84; RESP 18; TEMP 98.2; O2SAT 98
[2017-09-09 20:52] VITALS: BP 141/91; PULSE 113; RESP 17; TEMP 98; O2SAT 94
--- NOTE | 2017-09-09 22:23 | HHI.PR ---
Subjective Remarks Follow up for traumatic brain injury. Patient appears to be somewhat confused. He had a BM later today and apparently there was blood. Objective Vitals Vital Signs Date Time Temp Pulse Resp B/P (MAP) Pulse Ox O2 Delivery O2 Flow Rate FiO2 09/09/17 20:52 98.0 113 17 141/91 (108) 94 09/09/17 16:00 98.2 84 18 134/72 (92) 98 09/09/17 13:33 97.9 92 17 146/95 (112) 97 09/09/17 08:00 97.9 94 17 147/98 (114) 98 09/09/17 06:02 98.5 107 18 174/112 (132) 96 I/O 09/08/17 09/08/17 09/08/17 09/09/17 09/09/17 09/09/17 07:00 15:00 23:00 07:00 15:00 23:00 Intake Total 120 ml 120 ml Balance 120 ml 120 ml Intake Oral 120 ml 120 ml # Voids 1 # Bowel Movements 1 Imaging Last Impressions Head CT 09/03/17 0000 Signed Impressions: Service Date/Time: Sunday, September 03, 2017 16:42 - CONCLUSION: 1. 9 mm right subdural hygroma without significant shift as above. Encephalomalacia in the orbitofrontal regions bilaterally. Nondisplaced right frontal skull fracture. Virgilio Wilhelm MD Chest X-Ray 08/25/17 0000 Signed Impressions: Service Date/Time: Friday, August 25, 2017 19:34 - CONCLUSION: 1. Basilar airspace disease, right greater the left. Differential diagnosis includes pneumonia and atelectasis/aspiration. Virgilio Wilhelm MD Objective Remarks GENERAL: Alert, NAD. SKIN: Warm and dry. HEAD: Normocephalic. EYES: No scleral icterus. No injection or drainage. NECK: Supple, trachea midline. No JVD or lymphadenopathy. CARDIOVASCULAR: Regular rate and rhythm without murmurs, gallops, or rubs. RESPIRATORY: Breath sounds equal bilaterally. No accessory muscle use. GASTROINTESTINAL: Abdomen soft, non-tender, nondistended. MUSCULOSKELETAL: No cyanosis, or edema. BACK: Nontender without obvious deformity. No CVA tenderness. A/P Assessment and Plan 46-year-old male with: TBI Nondisplaced frontal bone fracture Left frontal subdural hematoma Left frontal subarachnoid hemorrhage Punctate frontal lobe hemorrhagic contusions Agitated delirium Alcohol dependence CT 08/26 Skull fracture on the right, encephalomalacia both orbitofrontal regions. Small 9 mm right subdural hygroma. Dr. Lobo consulted CT Scans were performed at outside hospital 08/14, 08/15, 08/16. CT brain 08/14 - linear nondisplaced frontal bone fracture. Punctate hemorrhagic contusions Inferior frontal lobes. Subdural blood along tentorium and small left frontal subdural hematoma 12 x 4 mm. Bilateral frontal subarachnoid hemorrhage Follow-up CT 08/15 was stable. Follow-up CT 08/16 Stable hemorrhagic contusions and subarachnoid hemorrhage. Subdural blood along the left frontal lobe was no longer apparent. CT was repeated again on 09/03 with 9 mm right subdural hygroma without significant shift . Encephalomalacia in the orbitofrontal regions bilaterally. EEG with no focal or diffuse abnormality. Suspect ongoing impulsivity largely related to frontal lobe involvement, though prior hospital course has been complicated by DTs. psych evaluated the patient; continue Seroquel and Depakote; continue Haldol prn and minimize benzodiazepines. will continue to taper down librium; discontinue Librium today. Thiamine/folic acid/MVI daily. PT/OT/speech therapy Continue to manage impulsive behavior. Somewhat improved. Hard to say what prognosis will be given underlying condition. Continue with increased dose of Seroquel 100 mg Q8H. COPD Suspected obstructive sleep apnea Tobacco abuse Was on BiPAP for suspected sleep apnea, will continue Continue nicotine patch continue neb treatment. Hypertension Monitor hemodynamics Constipation Possible rectal bleed - Rectal bleed noticed today maybe related to constipation. - Will check H&H in the AM. If trending down, we will consider GI consult. Thrombocytosis, reactive Monitor CBC DVT prophylaxis with subq Lovenox ( ok with neurosurgery). Discharge Planning Awaiting SNF placement. Probably needs a closed unit Kathy Zepeda DO Sep 09, 2017 22:23
[2017-09-10 00:18] VITALS: BP 104/67; PULSE 98; RESP 17; TEMP 97.9; O2SAT 97
[2017-09-10] MEDS: QUEtiapine FUMARATE 25 MG TAB PO SCH ×3 (01:24→16:31)
[2017-09-10 04:53] VITALS: BP 117/79; PULSE 90; RESP 17; TEMP 98.6; O2SAT 97
[2017-09-10] MEDS: cloNIDine HCL 0.1 MG TAB PO SCH ×3 (06:17→22:00)
[2017-09-10 06:27] LABS: HEMATOCRIT 42.7 % (39.0-51.0); HEMOGLOBIN 14.3 GM/DL (13.0-17.0)
[2017-09-10 08:00] VITALS: BP 124/81; PULSE 104; RESP 16; TEMP 97.5; O2SAT 95
[2017-09-10] MEDS: SODIUM CHLORIDE 0.9% FLUSH 10 ML FLUSH IV FLUSH SCH ×2 (08:24→21:00)
[2017-09-10] MEDS: MULTIVITAMIN TAB PO SCH (08:25)
[2017-09-10] MEDS: DOCUSATE SODIUM 50 MG/SENNA 8.6 MG TAB PO SCH ×2 (08:25→19:59)
[2017-09-10] MEDS: FAMOTIDINE 20 MG TAB PO SCH ×2 (08:25→19:59)
[2017-09-10] MEDS: DIVALPROEX DR 500 MG TABEC PO SCH ×2 (08:25→19:59)
[2017-09-10] MEDS: THIAMINE HCL 100 MG TAB PO SCH (08:25)
[2017-09-10] MEDS: FOLIC ACID 1 MG TAB PO SCH (08:25)
[2017-09-10] MEDS: ENOXAPARIN SODIUM 40 MG/0.4 ML SYRINGE SQ SCH (12:01)
[2017-09-10 12:21] VITALS: BP 120/94; PULSE 102; RESP 18; TEMP 97.9; O2SAT 97
[2017-09-10] MEDS: HALOPERIDOL LACTATE 5 MG/ML AMP IM PRN ×2 (14:28→21:25)
[2017-09-10 19:00] VITALS: BP 124/92; PULSE 101; RESP 19; TEMP 98.1; O2SAT 97
--- NOTE | 2017-09-10 19:28 | HHI.PR ---
Subjective Remarks Follow up for traumatic brain injury. Patient is currently doing well. Working with speech therapy. No acute concerns. Objective Vitals Vital Signs Date Time Temp Pulse Resp B/P (MAP) Pulse Ox O2 Delivery O2 Flow Rate FiO2 09/10/17 19:00 98.1 101 19 124/92 (103) 97 09/10/17 12:21 97.9 102 18 120/94 (103) 97 09/10/17 08:00 97.5 104 16 124/81 (95) 95 09/10/17 04:53 98.6 90 17 117/79 (92) 97 09/10/17 00:18 97.9 98 17 104/67 (79) 97 09/09/17 20:52 98.0 113 17 141/91 (108) 94 I/O 09/09/17 09/09/17 09/09/17 09/10/17 09/10/17 09/10/17 07:00 15:00 23:00 07:00 15:00 23:00 Intake Total 120 ml 480 ml 720 ml Balance 120 ml 480 ml 720 ml Intake Oral 120 ml 480 ml 720 ml # Voids 2 2 # Bowel Movements 1 Result Diagram: 09/10/17 0520 Imaging Last Impressions Head CT 09/03/17 0000 Signed Impressions: Service Date/Time: Sunday, September 03, 2017 16:42 - CONCLUSION: 1. 9 mm right subdural hygroma without significant shift as above. Encephalomalacia in the orbitofrontal regions bilaterally. Nondisplaced right frontal skull fracture. Virgilio Wilhelm MD Chest X-Ray 08/25/17 0000 Signed Impressions: Service Date/Time: Friday, August 25, 2017 19:34 - CONCLUSION: 1. Basilar airspace disease, right greater the left. Differential diagnosis includes pneumonia and atelectasis/aspiration. Virgilio Wilhelm MD Objective Remarks GENERAL: Alert, NAD. Remains somewhat confused. Follows commands. SKIN: Warm and dry. HEAD: Normocephalic. EYES: No scleral icterus. No injection or drainage. NECK: Supple, trachea midline. No JVD or lymphadenopathy. CARDIOVASCULAR: Regular rate and rhythm without murmurs, gallops, or rubs. RESPIRATORY: Breath sounds equal bilaterally. No accessory muscle use. GASTROINTESTINAL: Abdomen soft, non-tender, nondistended. MUSCULOSKELETAL: No cyanosis, or edema. BACK: Nontender without obvious deformity. No CVA tenderness. A/P Assessment and Plan 46-year-old male with: TBI Nondisplaced frontal bone fracture Left frontal subdural hematoma Left frontal subarachnoid hemorrhage Punctate frontal lobe hemorrhagic contusions Agitated delirium Alcohol dependence CT 08/26 Skull fracture on the right, encephalomalacia both orbitofrontal regions. Small 9 mm right subdural hygroma. Dr. Lobo consulted CT Scans were performed at outside hospital 08/14, 08/15, 08/16. CT brain 08/14 - linear nondisplaced frontal bone fracture. Punctate hemorrhagic contusions Inferior frontal lobes. Subdural blood along tentorium and small left frontal subdural hematoma 12 x 4 mm. Bilateral frontal subarachnoid hemorrhage Follow-up CT 08/15 was stable. Follow-up CT 08/16 Stable hemorrhagic contusions and subarachnoid hemorrhage. Subdural blood along the left frontal lobe was no longer apparent. CT was repeated again on 09/03 with 9 mm right subdural hygroma without significant shift . Encephalomalacia in the orbitofrontal regions bilaterally. EEG with no focal or diffuse abnormality. Suspect ongoing impulsivity largely related to frontal lobe involvement, though prior hospital course has been complicated by DTs. psych evaluated the patient; continue Seroquel and Depakote; continue Haldol prn and minimize benzodiazepines. will continue to taper down librium; discontinue Librium today. Thiamine/folic acid/MVI daily. PT/OT/speech therapy Continue to manage impulsive behavior. Somewhat improved. Hard to say what prognosis will be given underlying condition. Continue with increased dose of Seroquel 100 mg Q8H. COPD Suspected obstructive sleep apnea Tobacco abuse Was on BiPAP for suspected sleep apnea, will continue Continue nicotine patch continue neb treatment. Hypertension Monitor hemodynamics Constipation Possible rectal bleed - Hemoglobin is 14.3. His Hgb was 14.7 on 08/25/2017. - Doubt any acute GI blood loss. If patient remains in the hospital, we will monitor. - IF discharged, repeat CBC can be performed in a week and outpatient follow up. Thrombocytosis, reactive Monitor CBC DVT prophylaxis with subq Lovenox ( ok with neurosurgery). Kathy Zepeda DO Sep 10, 2017 19:28
[2017-09-10 20:00] VITALS: BP 143/91; PULSE 123; RESP 18; TEMP 98.2; O2SAT 96
[2017-09-11] VITALS: BP 134/81; PULSE 120; RESP 20; TEMP 97.3; O2SAT 98
[2017-09-11] MEDS: QUEtiapine FUMARATE 25 MG TAB PO SCH ×3 (01:03→17:22)
[2017-09-11 04:00] VITALS: BP 125/82; PULSE 79; RESP 18; TEMP 97; O2SAT 97
[2017-09-11] MEDS: cloNIDine HCL 0.1 MG TAB PO SCH ×3 (05:25→22:00)
[2017-09-11 08:24] VITALS: BP 142/79; PULSE 81; RESP 20; TEMP 97.3; O2SAT 95
[2017-09-11] MEDS: DIVALPROEX DR 500 MG TABEC PO SCH ×2 (09:35→21:05)
[2017-09-11] MEDS: THIAMINE HCL 100 MG TAB PO SCH (09:35)
[2017-09-11] MEDS: FOLIC ACID 1 MG TAB PO SCH (09:35)
[2017-09-11] MEDS: MULTIVITAMIN TAB PO SCH (09:35)
[2017-09-11] MEDS: FAMOTIDINE 20 MG TAB PO SCH ×2 (09:35→21:00)
[2017-09-11] MEDS: DOCUSATE SODIUM 50 MG/SENNA 8.6 MG TAB PO SCH ×2 (09:36→21:00)
[2017-09-11] MEDS: SODIUM CHLORIDE 0.9% FLUSH 10 ML FLUSH IV FLUSH SCH ×2 (09:36→21:00)
[2017-09-11 12:10] VITALS: BP 135/93; PULSE 89; RESP 20; TEMP 97.3; O2SAT 95
[2017-09-11] MEDS: ENOXAPARIN SODIUM 40 MG/0.4 ML SYRINGE SQ SCH (12:25)
[2017-09-11] MEDS ORDERED: OLANZapine IM 10 MG VIAL IM PRN (14:15)
--- NOTE | 2017-09-11 15:04 | HHI.PR ---
Subjective Remarks Follow up for traumatic brain injury. Patient was seen multiple times throughout the day today. In the morning he was pleasant but confused. However in the afternoon he tried to leave the hospital. He became very agitated. No acute neurological symptoms. No fever chills. Objective Vitals Vital Signs Date Time Temp Pulse Resp B/P (MAP) Pulse Ox O2 Delivery O2 Flow Rate FiO2 09/11/17 12:10 97.3 89 20 135/93 (107) 95 09/11/17 08:24 97.3 81 20 142/79 (100) 95 09/11/17 04:00 97.0 79 18 125/82 (96) 97 09/11/17 00:00 97.3 120 20 134/81 (98) 98 09/10/17 20:00 98.2 123 18 143/91 (108) 96 09/10/17 19:00 98.1 101 19 124/92 (103) 97 I/O 09/10/17 09/10/17 09/10/17 09/11/17 09/11/17 09/11/17 06:59 14:59 22:59 06:59 14:59 22:59 Intake Total 480 ml 720 ml Balance 480 ml 720 ml Intake Oral 480 ml 720 ml # Voids 2 2 8 Result Diagram: 09/10/17 0520 Imaging Last Impressions Head CT 09/03/17 0000 Signed Impressions: Service Date/Time: Sunday, September 03, 2017 16:42 - CONCLUSION: 1. 9 mm right subdural hygroma without significant shift as above. Encephalomalacia in the orbitofrontal regions bilaterally. Nondisplaced right frontal skull fracture. Virgilio Wilhelm MD Chest X-Ray 08/25/17 0000 Signed Impressions: Service Date/Time: Friday, August 25, 2017 19:34 - CONCLUSION: 1. Basilar airspace disease, right greater the left. Differential diagnosis includes pneumonia and atelectasis/aspiration. Virgilio Wilhelm MD Objective Remarks GENERAL: Alert, NAD. Remains somewhat confused. Follows commands. SKIN: Warm and dry. HEAD: Normocephalic. EYES: No scleral icterus. No injection or drainage. NECK: Supple, trachea midline. No JVD or lymphadenopathy. CARDIOVASCULAR: Regular rate and rhythm without murmurs, gallops, or rubs. RESPIRATORY: Breath sounds equal bilaterally. No accessory muscle use. GASTROINTESTINAL: Abdomen soft, non-tender, nondistended. MUSCULOSKELETAL: No cyanosis, or edema. BACK: Nontender without obvious deformity. No CVA tenderness. A/P Problem List: (1) COPD (chronic obstructive pulmonary disease) ICD Code: J44.9 - Chronic obstructive pulmonary disease, unspecified Status: Chronic (2) TBI (traumatic brain injury) ICD Code: S06.9X9A - Unspecified intracranial injury with loss of consciousness of unspecified duration, initial encounter Status: Acute (3) Alcohol withdrawal delirium ICD Code: F10.231 - Alcohol dependence with withdrawal delirium Status: Acute (4) HTN (hypertension) ICD Code: I10 - Essential (primary) hypertension Status: Chronic (5) Hepatic steatosis ICD Code: K76.0 - Fatty (change of) liver, not elsewhere classified Status: Chronic (6) Obesity (BMI 30-39.9) ICD Code: E66.9 - Obesity, unspecified Status: Chronic Assessment and Plan 46-year-old male with: TBI Nondisplaced frontal bone fracture Left frontal subdural hematoma Left frontal subarachnoid hemorrhage Punctate frontal lobe hemorrhagic contusions Alcohol dependence CT 08/26 Skull fracture on the right, encephalomalacia both orbitofrontal regions. Small 9 mm right subdural hygroma. Dr. Lobo consulted CT Scans were performed at outside hospital 08/14, 08/15, 08/16. CT brain 08/14 - linear nondisplaced frontal bone fracture. Punctate hemorrhagic contusions Inferior frontal lobes. Subdural blood along tentorium and small left frontal subdural hematoma 12 x 4 mm. Bilateral frontal subarachnoid hemorrhage Follow-up CT 08/15 was stable. Follow-up CT 08/16 Stable hemorrhagic contusions and subarachnoid hemorrhage. Subdural blood along the left frontal lobe was no longer apparent. CT was repeated again on 09/03 with 9 mm right subdural hygroma without significant shift . Encephalomalacia in the orbitofrontal regions bilaterally. EEG with no focal or diffuse abnormality. Suspect ongoing impulsivity largely related to frontal lobe involvement, though prior hospital course has been complicated by DTs. psych evaluated the patient; continue Seroquel and Depakote; continue Haldol prn and minimize benzodiazepines. will continue to taper down librium; discontinue Librium today. Thiamine/folic acid/MVI daily. PT/OT/speech therapy Continue to manage impulsive behavior. Somewhat improved. Hard to say what prognosis will be given underlying condition. Continue with increased dose of Seroquel 100 mg Q8H. Agitation Acute delirium -Patient has been confused most of the time. He also became very agitated. He wants to leave the hospital. -Due to his confusion and agitation, he would be a danger to himself and/or others if he were to leave the hospital. -I decided to be correct patient. Will consult psychiatry to see if [facility] admission would be indicated. -Start patient on olanzapine 10 mg every 12 hours intramuscular. We can switch to p.o. after 3 days. COPD Suspected obstructive sleep apnea Tobacco abuse Was on BiPAP for suspected sleep apnea, will continue Continue nicotine patch continue neb treatment. Hypertension Monitor hemodynamics Constipation Possible rectal bleed - Hemoglobin is 14.3. His Hgb was 14.7 on 08/25/2017. - Doubt any acute GI blood loss. If patient remains in the hospital, we will monitor. - IF discharged, repeat CBC can be performed in a week and outpatient follow up. Thrombocytosis, reactive Monitor CBC DVT prophylaxis with subq Lovenox ( ok with neurosurgery). Kathy Zepeda DO Sep 11, 2017 3:04 pm
[2017-09-11] MEDS ORDERED: HALOPERIDOL LACTATE 5 MG/ML AMP IM ONE (21:00)
[2017-09-12] MEDS: QUEtiapine FUMARATE 25 MG TAB PO SCH ×3 (01:00→17:05)
[2017-09-12 04:00] VITALS: BP 138/94; PULSE 88; RESP 18; TEMP 97; O2SAT 94
[2017-09-12] MEDS: cloNIDine HCL 0.1 MG TAB PO SCH ×2 (05:54→13:31)
[2017-09-12] MEDS ORDERED: cloNIDine HCL 0.1 MG TAB PO PRN (07:15)
[2017-09-12 08:20] VITALS: BP 146/100; PULSE 88; RESP 20; TEMP 97.6; O2SAT 95
[2017-09-12] MEDS ORDERED: OLANZapine ODT 10 MG TAB PO SCH (09:00)
[2017-09-12] MEDS: THIAMINE HCL 100 MG TAB PO SCH (09:43)
[2017-09-12] MEDS: DIVALPROEX DR 500 MG TABEC PO SCH (09:43)
[2017-09-12] MEDS: FAMOTIDINE 20 MG TAB PO SCH (09:44)
[2017-09-12] MEDS: MULTIVITAMIN TAB PO SCH (09:44)
[2017-09-12] MEDS: FOLIC ACID 1 MG TAB PO SCH (09:44)
[2017-09-12] MEDS: SODIUM CHLORIDE 0.9% FLUSH 10 ML FLUSH IV FLUSH SCH (09:44)
[2017-09-12] MEDS: DOCUSATE SODIUM 50 MG/SENNA 8.6 MG TAB PO SCH (09:44)
[2017-09-12] MEDS: ENOXAPARIN SODIUM 40 MG/0.4 ML SYRINGE SQ SCH (12:00)
[2017-09-12 12:23] VITALS: BP 135/84; PULSE 95; RESP 20; TEMP 97.9; O2SAT 96
--- NOTE | 2017-09-12 12:37 | HHI.PR ---
Subjective Remarks Follow up for traumatic brain injury. Patient is currently doing better compared to yesterday. However he continues to have tangential thoughts. No chest pain, shortness of breath, fever or chills. Ambulating well. Objective Vitals Vital Signs Date Time Temp Pulse Resp B/P (MAP) Pulse Ox O2 Delivery O2 Flow Rate FiO2 09/12/17 12:23 97.9 95 20 135/84 (101) 96 09/12/17 08:20 97.6 88 20 146/100 (115) 95 09/12/17 04:00 97.0 88 18 138/94 (109) 94 I/O 09/11/17 09/11/17 09/11/17 09/12/17 09/12/17 09/12/17 07:00 15:00 23:00 07:00 15:00 23:00 Intake Total 480 ml Balance 480 ml Intake Oral 480 ml # Voids 8 3 3 Result Diagram: 09/10/17 0520 Imaging Last Impressions Head CT 09/03/17 0000 Signed Impressions: Service Date/Time: Sunday, September 03, 2017 16:42 - CONCLUSION: 1. 9 mm right subdural hygroma without significant shift as above. Encephalomalacia in the orbitofrontal regions bilaterally. Nondisplaced right frontal skull fracture. Virgilio Wilhelm MD Chest X-Ray 08/25/17 0000 Signed Impressions: Service Date/Time: Friday, August 25, 2017 19:34 - CONCLUSION: 1. Basilar airspace disease, right greater the left. Differential diagnosis includes pneumonia and atelectasis/aspiration. Virgilio Wilhelm MD Objective Remarks GENERAL: Alert, NAD. Remains somewhat confused. Follows commands. SKIN: Warm and dry. HEAD: Normocephalic. EYES: No scleral icterus. No injection or drainage. NECK: Supple, trachea midline. No JVD or lymphadenopathy. CARDIOVASCULAR: Regular rate and rhythm without murmurs, gallops, or rubs. RESPIRATORY: Breath sounds equal bilaterally. No accessory muscle use. GASTROINTESTINAL: Abdomen soft, non-tender, nondistended. MUSCULOSKELETAL: No cyanosis, or edema. BACK: Nontender without obvious deformity. No CVA tenderness. A/P Problem List: (1) COPD (chronic obstructive pulmonary disease) ICD Code: J44.9 - Chronic obstructive pulmonary disease, unspecified Status: Chronic (2) TBI (traumatic brain injury) ICD Code: S06.9X9A - Unspecified intracranial injury with loss of consciousness of unspecified duration, initial encounter Status: Acute (3) Alcohol withdrawal delirium ICD Code: F10.231 - Alcohol dependence with withdrawal delirium Status: Acute (4) HTN (hypertension) ICD Code: I10 - Essential (primary) hypertension Status: Chronic (5) Hepatic steatosis ICD Code: K76.0 - Fatty (change of) liver, not elsewhere classified Status: Chronic (6) Obesity (BMI 30-39.9) ICD Code: E66.9 - Obesity, unspecified Status: Chronic Assessment and Plan 46-year-old male with: TBI Nondisplaced frontal bone fracture Left frontal subdural hematoma Left frontal subarachnoid hemorrhage Punctate frontal lobe hemorrhagic contusions Alcohol dependence CT 08/26 Skull fracture on the right, encephalomalacia both orbitofrontal regions. Small 9 mm right subdural hygroma. Dr. Lobo consulted CT Scans were performed at outside hospital 08/14, 08/15, 08/16. CT brain 08/14 - linear nondisplaced frontal bone fracture. Punctate hemorrhagic contusions Inferior frontal lobes. Subdural blood along tentorium and small left frontal subdural hematoma 12 x 4 mm. Bilateral frontal subarachnoid hemorrhage Follow-up CT 08/15 was stable. Follow-up CT 08/16 Stable hemorrhagic contusions and subarachnoid hemorrhage. Subdural blood along the left frontal lobe was no longer apparent. CT was repeated again on 09/03 with 9 mm right subdural hygroma without significant shift . Encephalomalacia in the orbitofrontal regions bilaterally. EEG with no focal or diffuse abnormality. Suspect ongoing impulsivity largely related to frontal lobe involvement, though prior hospital course has been complicated by DTs. psych evaluated the patient; continue Seroquel and Depakote; continue Haldol prn and minimize benzodiazepines. will continue to taper down librium; discontinue Librium today. Thiamine/folic acid/MVI daily. PT/OT/speech therapy Continue to manage impulsive behavior. Somewhat improved. Hard to say what prognosis will be given underlying condition. Continue with increased dose of Seroquel 100 mg Q8H. Agitation Acute delirium -Patient was very agitated yesterday and tried to leave the hospital. We tamayo acted him. -Psych re-consult pending. -Will switch patient from Olanzapine 10mg IM to 10mg TID ODT. COPD Suspected obstructive sleep apnea Tobacco abuse Was on BiPAP for suspected sleep apnea, will continue Continue nicotine patch continue neb treatment. Hypertension Monitor hemodynamics Constipation Possible rectal bleed - Hemoglobin is 14.3. His Hgb was 14.7 on 08/25/2017. - Doubt any acute GI blood loss. If patient remains in the hospital, we will monitor. - IF discharged, repeat CBC can be performed in a week and outpatient follow up. Thrombocytosis, reactive Monitor CBC DVT prophylaxis with subq Lovenox ( ok with neurosurgery). Discharge plan: Patient came from [place] apparently for second opinion. Since no surgical treatments were required, patient should be able to go back to the original hospital in [place]. Kathy Zepeda DO Sep 12, 2017 12:37 pm
[2017-09-12] MEDS ORDERED: FOLI1TAB6 PO (14:26)
[2017-09-12] MEDS ORDERED: DIVA500T PO (14:26)
[2017-09-12] MEDS ORDERED: FAMO20TA2 PO (14:26)
[2017-09-12] MEDS ORDERED: SERO25TA PO (14:26)
[2017-09-12] MEDS ORDERED: CLON.1 PO (14:26)
[2017-09-12] MEDS ORDERED: OLANZ10 PO (14:26)
[2017-09-12] MEDS ORDERED: THIA100 PO (14:26)
--- NOTE | 2017-09-12 15:18 | PD.PSY.CON ---
Provisional Diagnosis Admission Date Aug 25, 2017 at 18:10 [place] I. 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 Deferred [place] III. COPD, hypertension History of Present Illness Service Psychiatry Consult Requested By Dr. Salinas Reason for Consult Extreme agitation, attempting to leave the hospital. Now under BA. Primary Care Physician Unknown HPI The patient is 46 year-old man, domiciled in [place], , 3 kids, unemployed at the moment, without no previous psychiatric history, no suicidal attempts, no prepsychotic hospitalizations, he has history of alcohol and amphetamine use disorder, medical history of COPD of hypertension, who was transferred from [facility] in [facility]. Patient is hospitalized due to TBI, Nondisplaced frontal bone fracture, Left frontal subdural hematoma, Left frontal subarachnoid hemorrhage, Punctate frontal lobe hemorrhagic contusions, Agitated delirium. Patient was consulted to psychiatry due to persistent stage of agitation, aggressive and disorganized behavior. On psychiatric evaluation today patient is restrained in upper extremities, sedated , poorly cooperative. The patient is very confused, patient states that he is in [place], in order to answer question he has to be redirected multiple times , however, he is unable to provide any meaningful information for the psychiatric assessment. He is completely disoriented, disorganized, with no contact with the reality. However, I got in contact with his ex-, Tiarra Flores, , who reports that the patient does not have any previous psychiatric history, he does not have any prior psychiatric hospitalizations, she says that in the past he has history of drug use, and he has been a heavy alcohol and nicotine user for a long time. As far as she knows the patient had never tried to commit suicide in the past, never been psychotic or depressed. Reconsult for extreme agitation, now under BA. 09/12/17 -patient seen for reconsult -patient is a 38-year-old man, no previous psychiatric history, history of alcohol amphetamine use disorder, admitted to the medical floor for TBI (Nondisplaced frontal bone fracture, Left frontal subdural hematoma, Left frontal subarachnoid hemorrhage, Punctate frontal lobe hemorrhagic contusions), who was seen previously by Dr. Hernandez for initial consult for similar presentation, agitation. Patient was started on quetiapine and titrated up to 150 mg every 8 hours as well as Depakote 500 mg p.o. twice daily and Haldol 5 mg every 8 hours as needed agitation. Patient has since received multiple ETO's due to agitation, disorganization last evening attempted to leave the hospital and was put under [place] act as patient does not have capacity and unable to care for self due to significant neurocognitive deficits secondary to TBI. Patient was seen in hospital bed wearing latex gloves along with wearing hospital pajamas have torn and observed to have disorganized behavior in room prior to interview. Patient was unable to participate effectively in interview as she was very confused alert and oriented only to person, making nonsensical statements and unable to provide any history. Patient was able to endorse having auditory hallucinations which tell him to "pound myself". Discussion nursing staff reported the patient continues to be disorganized, last evening attempted to leave the hospital and was put under [place]ana act as patient is unsafe to leave due to inability to care for self. Case discussed with Dr. Zepeda and reported to the patient's family are considering having patient to return home if he is behaviorally more manageable. Past Family Social History Coded Allergies: No Known Allergies (Unverified , 08/25/17) Active Scripts Thiamine HCl (Gnp Vitamin B-1) 100 Mg Tab, 100 MG PO DAILY for Vitamin, #30 TAB Prov:Kathy Zepeda DO 09/12/17 Folic Acid (Folic Acid) 1 Mg Tablet, 1 MG PO DAILY for Vitamin, #30 TAB Prov:Kathy Zepeda DO 09/12/17 Famotidine (Famotidine) 20 Mg Tab, 20 MG PO Q12HR for Reflux, #60 TAB Prov:Kathy Zepeda DO 09/12/17 Quetiapine (Seroquel) 25 Mg Tab, 150 MG PO Q8H for Agitation, #30 TAB Prov:Kathy Zepeda DO 09/12/17 Olanzapine Odt (Zyprexa Zydis) 10 Mg Tab, 10 MG PO Q12HR for Agitation, #6 TAB Prov:Kathy Zepeda DO 09/12/[address] (Divalproex DR) 500 Mg Tabdr, 500 MG PO BID for Seizure Control, # 60 TAB Prov:Kathy Zepeda DO 09/12/17 Clonidine (Catapres) 0.1 Mg Tab, 0.1 MG PO Q8HR for Blood Pressure Management, # 30 TAB Prov:Kathy Zepeda DO 09/12/17 Current Medications Medications (Trade) Dose Ordered Sig/Alfa Route Start Time Stop Time Status Last Admin (NS Flush) 2 ml UNSCH PRN IV FLUSH 08/25/17 19:30 08/29/17 00:50 (NS Flush) 2 ml BID IV FLUSH 08/25/17 21:00 09/08/17 19:50 (Tylenol) 650 mg Q6H PRN PO 08/25/17 19:30 09/05/17 20:43 (Pepcid) 20 mg Q12HR PO 08/25/17 21:00 09/12/17 09:44 (Zofran Inj) 4 mg Q6H PRN IV PUSH 08/25/17 19:30 08/27/17 09:14 Miscellaneous Information 1 Q361D XX 08/25/17 19:30 08/25/17 19:30 (Chlorhexidine 2% Cloth) Taper DAILY@04 TOP 08/26/17 04:00 08/22/18 03:59 08/29/17 21:04 (Chlorhexidine 2% Cloth) 3 pack UNSCH PRN TOP 08/25/17 19:30 (Elena-Colace) 1 tab BID PO 08/25/17 21:00 09/12/17 09:44 (Senokot) 17.2 mg Q12H PRN PO 08/25/17 19:30 (Dulcolax Supp) 10 mg DAILY PRN RECTAL 08/25/17 19:30 09/01/17 17:48 (Lactulose Liq) 30 ml DAILY PRN PO 08/25/17 19:30 09/09/17 09:10 (Depakote Dr) 500 mg BID PO 08/26/17 09:00 09/12/17 09:43 (Albuterol Neb) 2.5 mg Q2HR NEB PRN NEB 08/26/17 08:45 (Catapres) 0.1 mg Q8HR PO 08/26/17 14:00 09/12/17 13:31 (Lovenox Inj) 40 mg Q24H SQ 08/26/17 12:00 09/11/17 12:25 (Ativan Inj) 2 mg Q4H PRN IV PUSH 08/26/17 16:30 Future Hold 09/03/17 16:30 (Milk Of Magnesia Liq) 30 ml DAILY PRN PO 08/28/17 12:15 08/29/17 00:56 (Vitamin B1) 100 mg DAILY PO 08/29/17 10:30 09/12/17 09:43 (Theragran) 1 tab DAILY PO 08/29/17 10:30 09/12/17 09:44 (Folate) 1 mg DAILY PO 08/29/17 10:30 09/12/17 09:44 (Tears Naturale Opth Soln) 2 drop Q4H PRN EACH EYE 09/04/17 19:30 09/05/17 16:27 (ZyPREXA ZYDIS ODT) 10 mg Q12HR PO 09/12/17 09:00 09/12/17 09:44 (SEROquel) 150 mg Q8H PO 09/12/17 09:00 09/12/17 09:43 Patient's Strengths (min. 2) Family support, no previous psychiatric history Physical Exam Vital Signs Vital Signs Date Time Temp Pulse Resp B/P (MAP) Pulse Ox O2 Delivery O2 Flow Rate FiO2 09/12/17 12:23 97.9 95 20 135/84 (101) 96 Mental Status Examination Appearance: Disheveled, Other (Regarding [facility]) Consciousness: Lethargic, Clouded Orientation: Person (Only) Motor Activity: Abnormal gait Speech: Other (Nonsensical statements) Language: Other Fund of Knowledge: Poor Attention and Concentration: Inadequate Memory: Impaired Mood: Other Affect: Blunt Thought Process & Associations: Disorganized Thought Content: Other (Poverty of thought) Hallucination Type: Auditory Delusion Type: None Suicidal Ideation: No Suicidal Plan: No Suicidal Intention: No Homicidal Ideation: No Homicidal Plan: No Homicidal Intention: No Insight: Poor Judgment: Poor Assessment & Plan Problem List: (1) Unspecified psychosis ICD Codes: F29 - Unspecified psychosis not due to a substance or known physiological condition (2) Major neurocognitive disorder as late effect of traumatic brain injury with behavioral disturbance ICD Codes: S06.9X9S - Unspecified intracranial injury with loss of consciousness of unspecified duration, sequela; F02.81 - Dementia in other diseases classified elsewhere with behavioral disturbance Status: Acute (3) Delirium due to another medical condition ICD Codes: F05 - Delirium due to known physiological condition Assessment & Plan Patient at this time noted to be disoriented, disorganized, requiring restraints and multiple ETO's and found to be correct as patient attempts to leave the hospital with us at this time unable to care for self likely secondary to his neurocognitive deficits from TBI. Patient also now endorsing auditory hallucinations telling him to hurt himself. Patient's last Depakote level was subtherapeutic, we will order repeat valproic acid level and titrate Depakote dose as needed, as patient currently on quetiapine which can be continued to be titrated, will discontinue olanzapine as scheduled and have it as as needed every 8 hours as needed for agitation. Patient to be transferred to the inpatient psychiatry for further evaluation and management once medically cleared and bed available. Case and plan discussed with Dr. Zepeda. Denny Guzman MD Sep 12, 2017 15:18
[2017-09-12 16:27] VITALS: BP 108/77; PULSE 100; RESP 20; TEMP 97.1; O2SAT 96
--- NOTE | 2017-09-12 17:43 | HHI.DS ---
Discharge Summary Admission Date Aug 25, 2017 at 18:10 Discharge Date: Sep 12, 2017 Admitting Diagnosis (1) COPD (chronic obstructive pulmonary disease) ICD Code: J44.9 - Chronic obstructive pulmonary disease, unspecified Status: Chronic (2) TBI (traumatic brain injury) ICD Code: S06.9X9A - Unspecified intracranial injury with loss of consciousness of unspecified duration, initial encounter Diagnosis: Principal Status: Acute (3) Alcohol withdrawal delirium ICD Code: F10.231 - Alcohol dependence with withdrawal delirium Status: Acute (4) HTN (hypertension) ICD Code: I10 - Essential (primary) hypertension Status: Chronic (5) Hepatic steatosis ICD Code: K76.0 - Fatty (change of) liver, not elsewhere classified Status: Chronic (6) Obesity (BMI 30-39.9) ICD Code: E66.9 - Obesity, unspecified Status: Chronic Procedures None. Brief History - From Admission Patient was not able to provide history. History was obtained from patient's brother and from review of medical records from outside hospital 46 year-old male with past medical history of alcohol dependence, hypertension, COPD, tobacco abuse, sleep apnea not on home C Pap, prior history of crystal meth abuse who is transferred from [facility] in [facility]. His brother states that on 08/14/17 he began coughing vigorously while intoxicated and friend witnessed him falling forward striking his head. (However OSH records indicate he was found down in the yard by his ex ). There was no reported seizure activity. GCS was reportedly 12 on arrival. He sustained a nondisplaced frontal bone fracture, bilateral frontal hemorrhagic contusions, left frontal subdural hematoma (124 mm). He was admitted to the trauma surgery service at the outside hospital with neurosurgical consultation. He had subsequent follow-up CT scans 08/15 and which were stable with the 3rd scan (08/16) showing resolution of SDH. He was treated for delirium tremens with Librium, thiamine, folic acid. He has been on Seroquel 50 mg by mouth twice a day and precedex drip for impulsivity. He was on Keppra for seizure prophylaxis. Repeat CT brain 08/24 showed reduction of frontal hemorrhages with increase in edema, particularly in left frontal lobe. Bilateral subdural hygromas present (5 mm on right and 4 mm on the left) Family has requested transfer to [facility] for second opinion, as well as because there are family members who are local here who can provide support to him through his recovery and rehabilitation efforts. Brother is at bedside requesting repeat imaging. CBC/BMP: 09/10/17 0520 Significant Findings Laboratory Tests Test 09/10/17 05:20 PE at Discharge GENERAL: Alert, NAD. Remains somewhat confused. Follows commands. SKIN: Warm and dry. HEAD: Normocephalic. EYES: No scleral icterus. No injection or drainage. NECK: Supple, trachea midline. No JVD or lymphadenopathy. CARDIOVASCULAR: Regular rate and rhythm without murmurs, gallops, or rubs. RESPIRATORY: Breath sounds equal bilaterally. No accessory muscle use. GASTROINTESTINAL: Abdomen soft, non-tender, nondistended. MUSCULOSKELETAL: No cyanosis, or edema. BACK: Nontender without obvious deformity. No CVA tenderness. Pt update on day of discharge Patient is currently doing better compared to yesterday. Still has very tangential, disorganized thought process. Not as aggressive. Discussed with psychiatrist who agreed that this pt will benefit from a psychiatry admission. Pt Condition on Discharge: Good Discharge Disposition: Disc to Psych Care Fac Discharge Time: > 30 minutes Discharge Instructions DIET: Follow Instructions for: As Tolerated, No Restrictions Additional Diet Instructions: do not give patient plastic knives or plastic forks with dietary tray Activities you can perform: Regular-No Restrictions New Medications: Clonidine (Catapres) 0.1 Mg Tab 0.1 MG PO Q8HR for Blood Pressure Management, #[address] (Divalproex DR) 500 Mg Tabdr 500 MG PO BID for Seizure Control, #60 TAB Famotidine (Famotidine) 20 Mg Tab 20 MG PO Q12HR for Reflux, #60 TAB Folic Acid (Folic Acid) 1 Mg Tablet 1 MG PO DAILY for Vitamin, #30 TAB Olanzapine Odt (Zyprexa Zydis) 10 Mg Tab 10 MG PO Q12HR for Agitation, #6 TAB Quetiapine (Seroquel) 25 Mg Tab 150 MG PO Q8H for Agitation, #30 TAB Thiamine HCl (Gnp Vitamin B-1) 100 Mg Tab 100 MG PO DAILY for Vitamin, #30 TAB Kathy Zepeda DO Sep 12, 2017 17:43
[2017-09-12] MEDS ORDERED: OLANZapine ODT 10 MG TAB PO PRN (22:00)
== END 2017-09-12 18:16 | DRG 83 ==
LOC: N03B 08-25 18:10 → N05A 08-30 17:37
PROVIDERS: ADMIT Hospitalist; ATTEND Hospitalist
DX: S06.339A Contusion and laceration of cerebrum, unspecified, with loss of consciousness of unspecified duration, initial encounter (principal); F02.81 Dementia in other diseases classified elsewhere, unspecified severity, with behavioral disturbance; S06.5X9A Traumatic subdural hemorrhage with loss of consciousness of unspecified duration, initial encounter; F05 Delirium due to known physiological condition; G93.89 Other specified disorders of brain; S02.0XXA Fracture of vault of skull, initial encounter for closed fracture; X58.XXXA Exposure to other specified factors, initial encounter; K76.0 Fatty (change of) liver, not elsewhere classified; Z78.1 Physical restraint status; R41.0 Disorientation, unspecified; R45.87 Impulsiveness; I10 Essential (primary) hypertension; J44.9 Chronic obstructive pulmonary disease, unspecified; E66.9 Obesity, unspecified; Z68.31 Body mass index [BMI] 31.0-31.9, adult; G47.30 Sleep apnea, unspecified; F17.210 Nicotine dependence, cigarettes, uncomplicated; D47.3 Essential (hemorrhagic) thrombocythemia; F10.20 Alcohol dependence, uncomplicated; K59.00 Constipation, unspecified
CPT/HCPCS: 36600; 70450; 71045; 76937; 80048; 80053; 80164; 82140; 82805; 83735; 84100; 85014; 85018; 85025; 87641; 93005; 94150; 94640; 94664; 95819; J1630; J1650; J2060; J2405; J7050